=== PATIENT | female | born 1940 ===

== ENCOUNTER 2020-10-05 09:13 | Outpatient (REF) | payer MEDICARE, MEDICAID, SELFPAY ==
[2020-10-05 10:27] LABS: MANUAL DIFF FLAG NO
[2020-10-05 10:45] LABS: Basophils Absolute Auto 0.1 X10*3/uL (0.0-0.2); Basophils Percent Auto 0.8 % (0-2); Eosinophils Absolute Auto 0.5 X10*3/uL (0.0-0.4); Eosinophils Percent Auto 5.2 % (0-4); Hematocrit 41.9 % (37-47); Hemoglobin 13.2 g/dl (12.0-16.0); Imm Gran Abs Auto 0.01 X10*3/uL (0.00-0.03); Imm Gran Pct Auto 0.1 % (0.0-0.4); Lymphocytes Absolute Auto 2.8 X10*3/uL (1.2-4.9); Lymphocytes Percent Auto 31.9 % (20-40); Mean Corpuscular HGB Conc 31.5 g/dl (31.0-35.0); Mean Corpuscular Hemoglobin 28.6 pg (27.0-33.0); Mean Corpuscular Volume 90.9 fL (80-98); Mean Platelet Volume 12.2 fL (9.4-12.3); Monocytes Absolute Auto 0.5 X10*3/uL (0.1-1.2); Monocytes Percent Auto 5.4 % (2-11); Neutrophils Absolute Auto 4.9 X10*3/uL (2.0-8.3); Neutrophils Percent Auto 56.6 % (45-73); Platelet Count 229 X10*3/uL (160-400); Red Blood Count 4.61 X10*6/uL (4.20-5.50); White Blood Count 8.7 X10*3/uL (4.8-10.8)
[2020-10-05 11:00] LABS: Glucose Urine UA NEG (NEG); Leukocyte Esterase Urine 1+ (NEG); Nitrite Urine POS (NEG); PH 5.5 (5.0-8.0); Specific Gravity - Urine >= 1.030 (1.005-1.025); Urine Blood NEG (NEG); Urine Ketones NEG (NEG); Urine Protein NEG (NEG-TRACE)
[2020-10-05 11:05] LABS: Appearance Urine HAZY; Color Urine YELLOW
[2020-10-05 11:13] LABS: Alanine Aminotransferase 15 U/L (0-31); Albumin Level 4.2 g/dL (3.5-5.0); Alkaline Phosphatase 107 U/L (39-117); Anion Gap 12 (12-20); Aspartate Amino Transferase 13 U/L (5-31); Bilirubin Total 0.4 mg/dL (0.0-1.0); Blood Urea Nitrogen 14 mg/dL (9-16); Calcium 10.6 mg/dL (8.4-10.2); Carbon Dioxide 29 mmol/L (22-29); Chloride 105 mmol/L (96-108); Cholesterol 127 mg/dL; Estimated Glomerular Filt Rate > 60; Glucose Fasting 134 mg/dL (60-99); HDL Cholesterol 47 mg/dL; LDL Cholesterol Calculated 65 mg/dl; Potassium 4.4 mmol/l (3.3-5.1); Sodium 142 mmol/L (135-145); Triglycerides 77 mg/dL
[2020-10-05 11:32] LABS: Bacteria Urine 3+ /LPF; RBC Urine 0-2 /HPF (0); Squamous Epithelial Cell Urine 3+ /LPF; TSH reflex Free T4 0.54 mIU/mL (0.32-4.0)
[2020-10-06 08:17] LABS: Estimated Average Glucose 197 mg/dL; Hemoglobin A1c % 8.5 %
== END 2020-10-05 09:14 | disposition home or self-care (01) ==
LOC: HO.LAB 09:13
PROVIDERS: PCP Internal Medicine; Visit Provider Internal Medicine
DX: E11.9 Type 2 diabetes mellitus without complications (principal); I10 Essential (primary) hypertension; K21.9 Gastro-esophageal reflux disease without esophagitis; E78.00 Pure hypercholesterolemia, unspecified; E66.9 Obesity, unspecified
CPT/HCPCS: 36415; 80053; 80061; 81001; 81003; 82043; 83036; 84443; 85025; 87086; 87088; 87186

== ENCOUNTER 2021-01-28 17:40 | Emergency (ER) | payer OTHER, SELFPAY ==
--- NOTE | ~2021-01-28 | XR_ITS ---
EXAMINATION: XR HIP, RIGHT CLINICAL INFORMATION: Right hip pain COMPARISON: None TECHNIQUE: Single view pelvis with 2 additional views of the right hip. FINDINGS: Bones and soft tissues are unremarkable. No fracture. Alignment is anatomic. Hip joint space is maintained. Some minimal degenerative changes seen with some marginal acetabular osteophytes bilaterally. XR/XR hip RT w PEL1V IMPRESSION: Minimal degenerative change without fracture.
[2021-01-28 18:16] VITALS: BP 161/70; PULSE 91; RESP 18; TEMP 37.2; O2SAT 97; BMI 30.9
[2021-01-28] MEDS: Ketorolac Tromethamine 30 MG/ML VIAL IM (18:51)
[2021-01-28] MEDS: Acetaminophen 325 MG TABLET 975 MG PO (18:51)
--- NOTE | 2021-01-28 18:53 | ED.LOWEXIN ---
HPI - Extremity Injury (Lower) General Chief Complaint: Extremity Injury, Lower Stated Complaint: R SIDED LOWER HIP PAIN Time Seen by Provider: 01/28/21 18:37 Source: patient and family Mode of arrival: ambulatory Limitations: no limitations History of Present Illness HPI Narrative: 80 y/o female with history of osteoporosis, osteoarthritis, GERD, obesity, DM, HTN and HLD who presents with right sided hip pain that she woke up with this morning. She was at a family function yesterday and was going up and down stairs which she usually does not do. She states this morning she woke up with 10/10 right hip pain and difficulty walking. She denies trauma or injury. No numbness, tingling or weakness. She states she also has pain in her low back with movement. No incontinence, fever or chills. MD complaint: hip injury Onset (ago): day(s) Injury: Right: hip Type of Injury: unknown Place: home Severity: moderate Relieving factors: immobilization and rest Exacerbating factors: weight bearing, movement and palpation Context: walking Associated symptoms: able to partially bear weight Other symptoms: none Related Data Home Medications Medication Instructions Recorded Confirmed atorvastatin 20 mg tablet 20 mg PO DAILY 10/04/20 01/03/21 dulaglutide 0.75 mg/0.5 mL 0.75 mg SUBCUT QWEEK ml 10/04/20 01/03/21 subcutaneous pen injector insulin aspart U-100 100 unit/mL See Rx Instructions SUBCUT .COMPLEX 10/04/20 01/03/21 (3 mL) subcutaneous pen insulin degludec 100 unit/mL (3 30 unit SUBCUT BEDTIME 10/04/20 01/03/21 mL) subcutaneous pen metformin 500 mg tablet 500 mg PO BID 10/04/20 01/03/21 Previous Rx's Medication Instructions Recorded blood sugar diagnostic #100 ea 01/03/21 enalapril maleate 10 mg tablet 10 mg PO DAILY 90 Days #90 tab 01/03/21 lancets 28 gauge #100 ea 01/03/21 omeprazole 40 mg capsule,delayed 40 mg PO DAILY 90 Days #90 cap 01/03/21 release oxybutynin chloride 5 mg 5 mg PO DAILY 90 Days #90 tab 01/03/21 tablet,extended release 24 hr polyethylene glycol 3350 17 17 g PO DAILY 30 Days #510 g 01/03/21 gram/dose oral powder cyclobenzaprine 5 mg PO TID PRN #8 tab 01/28/21 ibuprofen 600 mg PO Q8H PRN #10 tab 01/28/21 Allergies Allergy/AdvReac Type Severity Reaction Status Date / Time No Known Allergies Allergy Verified 01/03/21 10:14 Review of Systems Review of Systems: Constitutional: No Fever, No Chills Cardiovascular: No Chest Pain, No SOB, No Edema Respiratory: No Cough, No Sputum Gastrointestinal: No Nausea, No Vomiting, No Diarrhea, No abdominal Pain Genitourinary: No Dysuria, No Urinary Frequency, No Hematuria Musculoskeletal: + joint pain, + Myalgias Skin: No Skin Lesions, No rash Neuro: No Weakness, No Numbness, No Dizziness, No Headache Psych: No Anxiety/Panic, No Depression Heme/Lymph: No Bruising, No Lymphadenopathy Endocrine: No Polyuria, No Polydipsia PMFSH Past Medical History Medical History Benign essential hypertension Constipation Diabetes mellitus GERD without esophagitis Obesity (BMI 30-39.9) Overactive bladder Pure hypercholesterolemia Surgical History Status post excision of lipoma Family History Family History Mother Diabetes mellitus Hypertension Social History Social History Alcohol intake: never Smoking Status: Former smoker Use of substances other than those prescribed or required for medical reasons: No Advance Directives: No Advance Directives Information Provided: No Physical Exam Vital Signs: Vital Signs: Last Vital Signs Temp 98.9 F 01/28/21 18:16 Pulse 87 01/28/21 20:56 Resp 16 01/28/21 20:56 BP 138/65 01/28/21 20:56 Pulse Ox 96 01/28/21 20:56 Body Mass Index 30.9 Appearance: Alert. Oriented X3. No acute distress. Eyes: Pupils equal, round and reactive to light. ENT: Pharynx normal. Neck: Normal inspection. Neck supple. CVS: Normal heart rate and rhythm. Pulses normal. Respiratory: No respiratory distress. Breath sounds normal. Abdomen: Obese, soft, with tenderness to lower abdomen, no rebound or guarding, hyperactive +BS x4 Skin: Skin warm and dry. Normal skin color. Normal skin turgor. No rashes. Extremities: No lower extremity edema. Neuro: Oriented X 3. No motor deficit. No sensory deficit. Course Course Course Narrative: 80 y/o female presenting with right hip pain after walking up and down stairs yesterday. No trauma. Pain worse with movement and palpation. She is still able to ambulate with her walker but with discomfort. Will get XR for further evaluation. Reevaluation(s) Reevaluation #1: XR showing degenerative changes without fracture. Pain is better after Toradol, Tylenol and low dose oxycodone. She is stable for discharge home. She lives with her daughter who provides all of her care. She is not interested in PT/CM evaluation. Critical Care Time Critical Care Time Critical Care Time: No Discharge Plan Discharge Clinical Impression: Strain of hip Qualifiers: Encounter type: initial encounter Laterality: right Qualified Code(s): S76.011A - Strain of muscle, fascia and tendon of right hip, initial encounter Patient Disposition: Home, Self-Care Instructions: Hip Pain (ED) Additional Instructions: Your x-rays today showed minimal degenerative changes with no fractures. Your pain is likely due to strain of the muscle and tendons given all of the stairs you did yesterday. Use ice several times per day for 20 minutes at a time for the next 48 hours and then change to heat. Take medications as prescribed to help with pain and discomfort. Follow up with your Primary Care Doctor this week. If your pain worsens, if you develop new numbness, tingling, weakness, loss of function or incontinence call 911 or come back to the ER right away for evaluation. Prescriptions: New cyclobenzaprine 5 mg tablet 5 mg PO TID PRN (Reason: muscle spasm) Qty: 8 RF: 0 ibuprofen 600 mg tablet 600 mg PO Q8H PRN (Reason: pain) Qty: 10 RF: 0 No Action metformin 500 mg tablet 500 mg PO BID RF: 0 atorvastatin 20 mg tablet 20 mg PO DAILY RF: 0 Tresiba FlexTouch U-100 100 unit/mL (3 mL) insulin pen 30 unit subcut BEDTIME RF: 0 dulaglutide 0.75 mg/0.5 mL pen injector 0.75 mg subcut QWEEK RF: 0 insulin aspart U-100 100 unit/mL (3 mL) insulin pen See Rx Instructions subcut .COMPLEX RF: 0 enalapril maleate 10 mg tablet 10 mg PO DAILY 90 Days Qty: 90 RF: 1 omeprazole 40 mg capsule,delayed release(DR/EC) 40 mg PO DAILY 90 Days Qty: 90 RF: 1 oxybutynin chloride 5 mg tablet extended release 24hr 5 mg PO DAILY 90 Days Qty: 90 RF: 1 (DME) FreeStyle Lite Strips Strip See Rx Instructions .ROUTE .MEDSUPPLY Qty: 100 RF: 12 (DME) lancets [FreeStyle Lancets] 28 gauge misc See Rx Instructions .ROUTE .MEDSUPPLY Qty: 100 RF: 12 polyethylene glycol 3350 [GlycoLax] 17 gram/dose powder 17 g PO DAILY 30 Days Qty: 510 RF: 5
[2021-01-28] MEDS: oxyCODONE HCl Immed Release 5 MG TABLET 2.5 MG PO (20:17)
[2021-01-28 20:56] VITALS: BP 138/65; PULSE 87; RESP 16; O2SAT 96
== END 2021-01-28 21:22 | disposition home or self-care (01) ==
PROVIDERS: Emergency Provider Internal Medicine; PCP Internal Medicine
DX: S76.011A Strain of muscle, fascia and tendon of right hip, initial encounter (principal); M25.551 Pain in right hip; Z79.899 Other long term (current) drug therapy; E11.9 Type 2 diabetes mellitus without complications; I10 Essential (primary) hypertension; Z87.891 Personal history of nicotine dependence; X58.XXXA Exposure to other specified factors, initial encounter; Y93.9 Activity, unspecified; Y92.9 Unspecified place or not applicable; Y99.9 Unspecified external cause status
CPT/HCPCS: 73502; 96372; 99284; J1885

== ENCOUNTER 2021-04-01 08:12 | Outpatient (REF) | payer OTHER, SELFPAY ==
[2021-04-01 08:59] LABS: MANUAL DIFF FLAG NO
[2021-04-01 09:11] LABS: Basophils Absolute Auto 0.1 X10*3/uL (0.0-0.2); Basophils Percent Auto 0.6 % (0-2); Eosinophils Absolute Auto 0.2 X10*3/uL (0.0-0.4); Hematocrit 43.3 % (37-47); Imm Gran Abs Auto 0.03 X10*3/uL (0.00-0.03); Imm Gran Pct Auto 0.3 % (0.0-0.4); Lymphocytes Absolute Auto 2.9 X10*3/uL (1.2-4.9); Lymphocytes Percent Auto 27.3 % (20-40); Mean Corpuscular HGB Conc 32.3 g/dl (31.0-35.0); Mean Corpuscular Hemoglobin 29.7 pg (27.0-33.0); Mean Corpuscular Volume 91.7 fL (80-98); Mean Platelet Volume 11.3 fL (9.4-12.3); Monocytes Absolute Auto 0.6 X10*3/uL (0.1-1.2); Monocytes Percent Auto 5.2 % (2-11); Neutrophils Absolute Auto 6.9 X10*3/uL (2.0-8.3); Neutrophils Percent Auto 64.6 % (45-73); Platelet Count 243 X10*3/uL (160-400); Red Blood Count 4.72 X10*6/uL (4.20-5.50); Red Cell Distribution Width 14.6 % (11.0-16.0); White Blood Count 10.6 X10*3/uL (4.8-10.8)
[2021-04-01 09:29] LABS: Estimated Average Glucose 180 mg/dL; Hemoglobin A1c % 7.9 %
[2021-04-01 09:40] LABS: Glucose Urine UA NEG (NEG); Leukocyte Esterase Urine 2+ (NEG); Nitrite Urine NEG (NEG); Specific Gravity - Urine 1.025 (1.005-1.025); UACC Culture Trigger YES; Urine Blood NEG (NEG); Urine Ketones NEG (NEG); Urine Protein NEG (NEG-TRACE)
[2021-04-01 09:41] LABS: Alanine Aminotransferase 11 U/L (0-31); Albumin Level 4.2 g/dL (3.5-5.0); Alkaline Phosphatase 100 U/L (39-117); Anion Gap 14 (12-20); Aspartate Amino Transferase 12 U/L (5-31); Bilirubin Total 0.4 mg/dL (0.0-1.0); Blood Urea Nitrogen 12 mg/dL (9-16); Calcium 12.4 mg/dL (8.4-10.2); Carbon Dioxide 27 mmol/L (22-29); Chloride 105 mmol/L (96-108); Cholesterol 135 mg/dL; Estimated Glomerular Filt Rate > 60; Glucose Fasting 132 mg/dL (60-99); HDL Cholesterol 46 mg/dL; LDL Cholesterol Calculated 64 mg/dl; Potassium 4.9 mmol/L (3.3-5.1); Sodium 141 mmol/L (135-145); Total Protein 7.3 g/dL (6.5-8.0); Triglycerides 125 mg/dL
[2021-04-01 09:42] LABS: Appearance Urine HAZY; Color Urine YELLOW
[2021-04-01 09:48] LABS: TSH reflex Free T4 0.71 uIU/mL (0.32-4.0)
[2021-04-01 09:50] LABS: Bacteria Urine 4+ /LPF; RBC Urine 0 /HPF (0); Squamous Epithelial Cell Urine 2+ /LPF; WBC Urine 30-49 /HPF (0-4)
[2021-04-01 10:18] LABS: Creatinine Urine 122.09 mg/dL; Microalbum/Creatinine Ratio Ur 29.4 ug/mg cr
== END 2021-04-01 08:13 | disposition home or self-care (01) ==
LOC: HO.LAB 08:12
PROVIDERS: PCP Internal Medicine; Visit Provider Internal Medicine
DX: E11.9 Type 2 diabetes mellitus without complications (principal); I10 Essential (primary) hypertension; K21.9 Gastro-esophageal reflux disease without esophagitis; E78.00 Pure hypercholesterolemia, unspecified; E66.9 Obesity, unspecified; N32.81 Overactive bladder; Z79.4 Long term (current) use of insulin
CPT/HCPCS: 36415; 80053; 80061; 81001; 81003; 82043; 83036; 84443; 85025; 87086; 87088; 87186

== ENCOUNTER 2021-06-05 09:25 | Outpatient (REF) | payer OTHER, SELFPAY ==
[2021-06-05 10:09] LABS: Appearance Urine HAZY; Color Urine YELLOW; Glucose Urine UA NEG (NEG); Leukocyte Esterase Urine 1+ (NEG); Nitrite Urine POS (NEG); PH 5.5 (5.0-8.0); Specific Gravity - Urine 1.025 (1.005-1.025); UACC Culture Trigger YES; Urine Blood NEG (NEG); Urine Ketones NEG (NEG); Urine Protein NEG (NEG-TRACE)
[2021-06-05 10:16] LABS: Bacteria Urine 4+ /LPF; RBC Urine 0 /HPF (0); Squamous Epithelial Cell Urine 1+ /LPF
[2021-06-05 10:40] LABS: Alanine Aminotransferase 12 U/L (0-31); Albumin Level 4.1 g/dL (3.5-5.0); Alkaline Phosphatase 91 U/L (39-117); Anion Gap 12 (12-20); Aspartate Amino Transferase 15 U/L (5-31); Bilirubin Total 0.4 mg/dL (0.0-1.0); Blood Urea Nitrogen 21 mg/dL (9-16); Carbon Dioxide 27 mmol/L (22-29); Chloride 106 mmol/L (96-108); Cholesterol 140 mg/dL; Estimated Glomerular Filt Rate > 60; Glucose Fasting 96 mg/dL (60-99); HDL Cholesterol 46 mg/dL; LDL Cholesterol Calculated 81 mg/dl; Sodium 140 mmol/L (135-145); Total Protein 6.9 g/dL (6.5-8.0); Triglycerides 69 mg/dL
== END 2021-06-05 09:26 | disposition home or self-care (01) ==
LOC: HO.LAB 09:25
PROVIDERS: PCP Internal Medicine; Visit Provider Internal Medicine
DX: E11.9 Type 2 diabetes mellitus without complications (principal); Z79.4 Long term (current) use of insulin; E78.5 Hyperlipidemia, unspecified
CPT/HCPCS: 36415; 80053; 80061; 81001; 82043; 87086; 87088; 87186

== ENCOUNTER 2021-06-12 11:03 | Outpatient (REF) | payer OTHER, SELFPAY ==
[2021-06-12 12:32] LABS: Alanine Aminotransferase 15 U/L (0-31); Albumin Level 4.1 g/dL (3.5-5.0); Alkaline Phosphatase 101 U/L (39-117); Anion Gap 13 (12-20); Aspartate Amino Transferase 15 U/L (5-31); Bilirubin Total 0.3 mg/dL (0.0-1.0); Blood Urea Nitrogen 16 mg/dL (9-16); Carbon Dioxide 28 mmol/L (22-29); Chloride 104 mmol/L (96-108); Estimated Glomerular Filt Rate > 60; Glucose Random 142 mg/dL (60-115); Potassium 4.8 mmol/L (3.3-5.1); Sodium 140 mmol/L (135-145); Total Protein 6.8 g/dL (6.5-8.0)
[2021-06-12 12:48] LABS: Vitamin D 25-OH Total 37.3 ng/mL (>30)
[2021-06-12 12:50] LABS: Appearance Urine HAZY; Color Urine YELLOW; Glucose Urine UA NEG (NEG); Leukocyte Esterase Urine 2+ (NEG); Nitrite Urine NEG (NEG); UACC Culture Trigger YES; Urine Blood NEG (NEG); Urine Ketones 5 MG/DL (NEG); Urine Protein NEG (NEG-TRACE)
[2021-06-12 12:54] LABS: Calcium 11.9 mg/dL (8.4-10.2)
[2021-06-12 13:06] LABS: Squamous Epithelial Cell Urine 1+ /LPF
[2021-06-12 13:07] LABS: Bacteria Urine 3+ /LPF
[2021-06-12 13:08] LABS: RBC Urine 0-2 /HPF (0); WBC Urine 50-75 /HPF (0-4)
[2021-06-14 09:46] LABS: Calcium, Ionized 6.5 mg/dL (4.8-5.6)
[2021-06-14 12:12] LABS: Calcium (PTHI) 11.7 mg/dL (8.6-10.4); PTHI 86 pg/mL (14-64)
[2021-06-14 18:12] LABS: IgA 272 mg/dL (70-320); IgG 1079 mg/dL (600-1540); IgM 72 mg/dL (50-300)
[2021-06-18 09:46] LABS: Prot Elec - Albumin 3.9 g/dL (3.8-4.8); Prot Elec - Alpha1 0.3 g/dL (0.2-0.3); Prot Elec - Beta 1 0.5 g/dL (0.4-0.6); Prot Elec - Beta 2 0.4 g/dL (0.2-0.5); Prot Elec - Total Protein 7.1 g/dL (6.1-8.1)
== END 2021-06-12 11:04 | disposition home or self-care (01) ==
LOC: HO.LAB 11:03
PROVIDERS: PCP Internal Medicine; Visit Provider Internal Medicine
DX: E83.52 Hypercalcemia (principal)
CPT/HCPCS: 36415; 80053; 81001; 82306; 82330; 82784; 83970; 84165; 87086; 87088; 87186

== ENCOUNTER 2021-07-03 09:18 | Outpatient (REF) | payer MEDICARE, MEDICAID, SELFPAY ==
[2021-07-03 10:32] LABS: Blood Urea Nitrogen 14 mg/dL (9-16); Estimated Glomerular Filt Rate > 60
== END 2021-07-03 09:19 | disposition home or self-care (01) ==
LOC: HO.LAB 09:18
PROVIDERS: PCP Internal Medicine; Visit Provider Ophthalmology
DX: G62.9 Polyneuropathy, unspecified (principal); H53.40 Unspecified visual field defects
CPT/HCPCS: 36415; 82565; 84520

== ENCOUNTER 2021-07-24 10:16 | Outpatient (REF) | payer MEDICARE, MEDICAID, SELFPAY ==
[2021-07-24 10:33] LABS: MANUAL DIFF FLAG NO
[2021-07-24 10:50] LABS: Basophils Absolute Auto 0.1 X10*3/uL (0.0-0.2); Basophils Percent Auto 0.8 % (0-2); Eosinophils Absolute Auto 0.4 X10*3/uL (0.0-0.4); Eosinophils Percent Auto 4.1 % (0-4); Hematocrit 40.9 % (37.0-47.0); Imm Gran Abs Auto 0.04 X10*3/uL (0.00-0.03); Imm Gran Pct Auto 0.4 % (0.0-0.4); Lymphocytes Percent Auto 33.2 % (20-40); Mean Corpuscular HGB Conc 31.8 g/dl (31.0-35.0); Mean Corpuscular Hemoglobin 29.3 pg (27.0-33.0); Mean Corpuscular Volume 92.1 fL (80.0-98.0); Mean Platelet Volume 11.2 fL (9.4-12.3); Monocytes Absolute Auto 0.5 X10*3/uL (0.1-1.2); Neutrophils Absolute Auto 5.07 x10*3/uL (2.0-8.3); Neutrophils Percent Auto 56.5 % (45-73); Platelet Count 263 X10*3/uL (160-400); Red Blood Count 4.44 X10*6/uL (4.20-5.50); Red Cell Distribution Width 14.6 % (11.0-16.0)
[2021-07-24 11:17] LABS: Alanine Aminotransferase 14 U/L (0-31); Albumin Level 4.1 g/dL (3.5-5.0); Alkaline Phosphatase 98 U/L (39-117); Anion Gap 12 (12-20); Aspartate Amino Transferase 14 U/L (5-31); Bilirubin Total 0.2 mg/dL (0.0-1.0); Blood Urea Nitrogen 19 mg/dL (9-16); Carbon Dioxide 28 mmol/L (22-29); Chloride 106 mmol/L (96-108); Estimated Glomerular Filt Rate > 60; Glucose Random 132 mg/dL (60-115); Sodium 141 mmol/L (135-145)
[2021-07-24 11:28] LABS: Calcium 11.8 mg/dL (8.4-10.2)
[2021-07-24 11:36] LABS: Vitamin D 25-OH Total 32.8 ng/mL (>30)
== END 2021-07-24 10:17 | disposition home or self-care (01) ==
LOC: HO.LAB 10:16
PROVIDERS: PCP Internal Medicine; Visit Provider Internal Medicine
DX: E83.52 Hypercalcemia (principal); I10 Essential (primary) hypertension; E55.9 Vitamin D deficiency, unspecified
CPT/HCPCS: 36415; 80053; 82306; 82330; 85025

== ENCOUNTER 2021-11-21 08:38 | Outpatient (REF) | payer OTHER, SELFPAY ==
[2021-11-21 09:20] LABS: MANUAL DIFF FLAG NO
[2021-11-21 09:27] LABS: Basophils Percent Auto 0.3 % (0-2); Eosinophils Absolute Auto 0.2 X10*3/uL (0.0-0.4); Eosinophils Percent Auto 1.6 % (0-4); Hematocrit 39.8 % (37.0-47.0); Hemoglobin 12.7 g/dl (12.0-16.0); Imm Gran Abs Auto 0.04 X10*3/uL (0.00-0.03); Imm Gran Pct Auto 0.3 % (0.0-0.4); Lymphocytes Absolute Auto 3.2 X10*3/uL (1.2-4.9); Lymphocytes Percent Auto 27.9 % (20-40); Mean Corpuscular HGB Conc 31.9 g/dl (31.0-35.0); Mean Corpuscular Hemoglobin 29.1 pg (27.0-33.0); Mean Corpuscular Volume 91.3 fL (80.0-98.0); Mean Platelet Volume 10.9 fL (9.4-12.3); Monocytes Absolute Auto 0.5 X10*3/uL (0.1-1.2); Monocytes Percent Auto 4.3 % (2-11); Neutrophils Absolute Auto 7.6 x10*3/uL (2.0-8.3); Neutrophils Percent Auto 65.6 % (45-73); Platelet Count 244 X10*3/uL (160-400); Red Blood Count 4.36 X10*6/uL (4.20-5.50); Red Cell Distribution Width 14.6 % (11.0-16.0); White Blood Count 11.6 X10*3/uL (4.8-10.8)
[2021-11-21 09:37] LABS: Estimated Average Glucose 160 mg/dL; Hemoglobin A1c % 7.2 %
[2021-11-21 10:27] LABS: Alanine Aminotransferase 12 U/L (0-31); Albumin Level 3.9 g/dL (3.5-5.0); Alkaline Phosphatase 102 U/L (39-117); Anion Gap 10 (12-20); Aspartate Amino Transferase 13 U/L (5-31); Bilirubin Total 0.4 mg/dL (0.0-1.0); Blood Urea Nitrogen 20 mg/dL (9-16); Calcium 11.2 mg/dL (8.4-10.2); Carbon Dioxide 28 mmol/L (22-29); Chloride 110 mmol/L (96-108); Cholesterol 126 mg/dL; Estimated Glomerular Filt Rate > 60; Glucose Fasting 97 mg/dL (60-99); HDL Cholesterol 52 mg/dL; LDL Cholesterol Calculated 62 mg/dl; Potassium 4.7 mmol/L (3.3-5.1); Sodium 143 mmol/L (135-145); Total Protein 6.7 g/dL (6.5-8.0); Triglycerides 63 mg/dL
[2021-11-21 10:45] LABS: TSH reflex Free T4 0.57 uIU/mL (0.32-4.0); Vitamin D 25-OH Total 33.6 ng/mL (>30)
[2021-11-21 10:55] LABS: Appearance Urine HAZY; Color Urine YELLOW; Glucose Urine UA NEG (NEG); Leukocyte Esterase Urine TRACE (NEG); Nitrite Urine POS (NEG); PH 5.5 (5.0-8.0); Specific Gravity - Urine >= 1.030 (1.005-1.025); UACC Culture Trigger YES; Urine Blood NEG (NEG); Urine Ketones NEG (NEG); Urine Protein NEG (NEG-TRACE)
[2021-11-21 11:29] LABS: Bacteria Urine 4+ /LPF; RBC Urine 0 /HPF (0); Squamous Epithelial Cell Urine 3+ /LPF
[2021-11-21 11:30] LABS: Creatinine Urine 116.27 mg/dL
== END 2021-11-21 08:39 | disposition home or self-care (01) ==
LOC: HO.LAB 08:38
PROVIDERS: PCP Internal Medicine; Visit Provider Internal Medicine
DX: I10 Essential (primary) hypertension (principal); E78.00 Pure hypercholesterolemia, unspecified; E11.9 Type 2 diabetes mellitus without complications; E55.9 Vitamin D deficiency, unspecified
CPT/HCPCS: 36415; 80053; 80061; 81001; 82043; 82306; 83036; 84443; 85025; 87086; 87088; 87186

== ENCOUNTER → 2021-12-30 08:13 | Outpatient (BNVA) | payer OTHER, SELFPAY | PROVIDERS: PCP Internal Medicine; Visit Provider Internal Medicine Endocrinology, Diabetes & Metabolism | DX: E83.52 Hypercalcemia (principal); E21.3 Hyperparathyroidism, unspecified | CPT/HCPCS: 99202 ==

== ENCOUNTER 2022-02-24 08:38 | Outpatient (REF) | payer OTHER, SELFPAY ==
[2022-02-24 09:30] LABS: Albumin Level 3.9 g/dL (3.5-5.0); Calcium 10.5 mg/dL (8.4-10.2)
[2022-02-24 09:58] LABS: Vitamin D 25-OH Total 27.2 ng/mL (>30)
[2022-02-25 14:47] LABS: Calcium (PTHI) 10.7 mg/dL (8.6-10.4); PTHI 149 pg/mL (16-77)
== END 2022-02-24 08:39 | disposition home or self-care (01) ==
LOC: HO.LAB 08:38
PROVIDERS: PCP Internal Medicine; Visit Provider Internal Medicine Endocrinology, Diabetes & Metabolism
DX: E21.3 Hyperparathyroidism, unspecified (principal)
CPT/HCPCS: 36415; 82040; 82306; 82310; 83970

== ENCOUNTER 2022-02-26 13:26 | Outpatient (REF) | payer OTHER, SELFPAY ==
[2022-02-26 14:12] LABS: Total Volume 24 Hour Urine 825 mL
[2022-02-26 14:43] LABS: Creatinine, 24Hr Urine 0.8 G/Day (1.0-2.0); Creatinine, mg/dL 90.99
[2022-02-28 17:26] LABS: Calcium, 24 Hr Urine 87 mg/24 h; Calcium/Creatinine Ratio 120 mg/g creat (30-275); Creatinine 24Hr Urine 0.73 g/24 h (0.50-2.15)
== END 2022-02-26 13:27 | disposition home or self-care (01) ==
LOC: HO.LNP 13:26
PROVIDERS: Visit Provider Internal Medicine Endocrinology, Diabetes & Metabolism
DX: E21.3 Hyperparathyroidism, unspecified (principal)
CPT/HCPCS: 82340; 82570

== ENCOUNTER 2022-03-11 08:14 | Outpatient (REF) | payer OTHER, SELFPAY ==
[2022-03-11 08:50] LABS: MANUAL DIFF FLAG NO
[2022-03-11 09:12] LABS: Basophils Percent Auto 0.5 % (0-2); Eosinophils Absolute Auto 0.2 X10*3/uL (0.0-0.4); Eosinophils Percent Auto 2.5 % (0-4); Hematocrit 40.6 % (37.0-47.0); Hemoglobin 12.9 g/dl (12.0-16.0); Imm Gran Abs Auto 0.02 X10*3/uL (0.00-0.03); Imm Gran Pct Auto 0.2 % (0.0-0.4); Lymphocytes Absolute Auto 2.9 X10*3/uL (1.2-4.9); Lymphocytes Percent Auto 34.3 % (20-40); Mean Corpuscular HGB Conc 31.8 g/dl (31.0-35.0); Mean Corpuscular Hemoglobin 29.3 pg (27.0-33.0); Mean Corpuscular Volume 92.3 fL (80.0-98.0); Mean Platelet Volume 11.7 fL (9.4-12.3); Monocytes Absolute Auto 0.4 X10*3/uL (0.1-1.2); Monocytes Percent Auto 5.1 % (2-11); Neutrophils Absolute Auto 4.8 x10*3/uL (2.0-8.3); Neutrophils Percent Auto 57.4 % (45-73); Platelet Count 267 X10*3/uL (160-400); Red Cell Distribution Width 14.3 % (11.0-16.0); White Blood Count 8.3 X10*3/uL (4.8-10.8)
[2022-03-11 09:24] LABS: Estimated Average Glucose 183 mg/dL
[2022-03-11 09:33] LABS: Appearance Urine CLEAR; Color Urine YELLOW; Glucose Urine UA NEG (NEG); Leukocyte Esterase Urine 1+ (NEG); Nitrite Urine POS (NEG); PH 5.5 (5.0-8.0); Specific Gravity - Urine >= 1.030 (1.005-1.025); UACC Culture Trigger YES; Urine Blood NEG (NEG); Urine Ketones NEG (NEG); Urine Protein NEG (NEG-TRACE)
[2022-03-11 09:48] LABS: Bacteria Urine 4+ /LPF; RBC Urine 0 /HPF (0); Squamous Epithelial Cell Urine 2+ /LPF
[2022-03-11 10:33] LABS: Creatinine Urine 127.91 mg/dL; Microalbum/Creatinine Ratio Ur 16.4 ug/mg cr
[2022-03-11 10:46] LABS: Alanine Aminotransferase 13 U/L (0-31); Albumin Level 4.1 g/dL (3.5-5.0); Alkaline Phosphatase 114 U/L (39-117); Anion Gap 12 (12-20); Aspartate Amino Transferase 13 U/L (5-31); Bilirubin Total 0.4 mg/dL (0.0-1.0); Blood Urea Nitrogen 19 mg/dL (9-16); Carbon Dioxide 26 mmol/L (22-29); Chloride 106 mmol/L (96-108); Cholesterol 135 mg/dL; Estimated Glomerular Filt Rate > 60; Glucose Fasting 106 mg/dL (60-99); HDL Cholesterol 45 mg/dL; LDL Cholesterol Calculated 68 mg/dl; Potassium 5.3 mmol/L (3.3-5.1); Sodium 139 mmol/L (135-145); Total Protein 7.1 g/dL (6.5-8.0); Triglycerides 110 mg/dL
[2022-03-11 10:57] LABS: Calcium 11.3 mg/dL (8.4-10.2)
[2022-03-11 11:18] LABS: Vitamin D 25-OH Total 27.8 ng/mL (>30)
== END 2022-03-11 08:15 | disposition home or self-care (01) ==
LOC: HO.LAB 08:14
PROVIDERS: PCP Internal Medicine; Visit Provider Internal Medicine
DX: I10 Essential (primary) hypertension (principal); E78.00 Pure hypercholesterolemia, unspecified; E11.9 Type 2 diabetes mellitus without complications; E55.9 Vitamin D deficiency, unspecified
CPT/HCPCS: 36415; 80053; 80061; 81001; 82043; 82306; 83036; 84443; 85025; 87086; 87088; 87186

== ENCOUNTER 2022-06-30 07:59 | Outpatient (REF) | payer OTHER, SELFPAY ==
[2022-06-30 08:13] LABS: MANUAL DIFF FLAG NO
[2022-06-30 08:35] LABS: Basophils Absolute Auto 0.1 X10*3/uL (0.0-0.2); Basophils Percent Auto 0.8 % (0-2); Eosinophils Absolute Auto 0.2 X10*3/uL (0.0-0.4); Eosinophils Percent Auto 3.1 % (0-4); Hematocrit 41.3 % (37.0-47.0); Hemoglobin 13.1 g/dl (12.0-16.0); Imm Gran Abs Auto 0.02 X10*3/uL (0.00-0.03); Imm Gran Pct Auto 0.3 % (0.0-0.4); Lymphocytes Absolute Auto 2.8 X10*3/uL (1.2-4.9); Lymphocytes Percent Auto 35.8 % (20-40); Mean Corpuscular HGB Conc 31.7 g/dl (31.0-35.0); Mean Corpuscular Hemoglobin 29.1 pg (27.0-33.0); Mean Corpuscular Volume 91.8 fL (80.0-98.0); Mean Platelet Volume 11.2 fL (9.4-12.3); Monocytes Absolute Auto 0.5 X10*3/uL (0.1-1.2); Monocytes Percent Auto 6.5 % (2-11); Neutrophils Absolute Auto 4.1 x10*3/uL (2.0-8.3); Neutrophils Percent Auto 53.5 % (45-73); Platelet Count 259 X10*3/uL (160-400); Red Cell Distribution Width 14.5 % (11.0-16.0); White Blood Count 7.7 X10*3/uL (4.8-10.8)
[2022-06-30 08:41] LABS: Estimated Average Glucose 163 mg/dL; Hemoglobin A1c % 7.3 %
[2022-06-30 08:57] LABS: Appearance Urine Cloudy; Color Urine Yellow; Glucose Urine UA Negative (Negative); Leukocyte Esterase Urine Moderate (2+) (Negative); Nitrite Urine Positive (Negative); PH 5.5 (5.0-9.0); UMIC TRIGGER UACC YES; Urine Blood Negative (Negative); Urine Ketones Trace mg/dL (Negative); Urine Protein Trace mg/dL (Neg-Trace)
[2022-06-30 09:02] LABS: Bacteria Urine 4+ (None Seen); Hyaline Casts Urine 0-2 /LPF (0-2); RBC Urine 0-2 /HPF (0-2); UACC Culture Trigger YES; WBC Urine >50 /HPF (0-5)
[2022-06-30 09:06] LABS: Creatinine Urine 148.55 mg/dL; Microalbum/Creatinine Ratio Ur 15.4 ug/mg cr
[2022-06-30 09:19] LABS: Alanine Aminotransferase 12 U/L (0-31); Albumin Level 4.2 g/dL (3.5-5.0); Alkaline Phosphatase 108 U/L (39-117); Anion Gap 13 (12-20); Aspartate Amino Transferase 15 U/L (5-31); Bilirubin Total 0.3 mg/dL (0.0-1.0); Blood Urea Nitrogen 13 mg/dL (9-16); Calcium 11.3 mg/dL (8.4-10.2); Carbon Dioxide 27 mmol/L (22-29); Chloride 105 mmol/L (96-108); Cholesterol 119 mg/dL; Estimated Glomerular Filt Rate > 60; Glucose Fasting 146 mg/dL (60-99); HDL Cholesterol 44 mg/dL; LDL Cholesterol Calculated 58 mg/dl; Sodium 140 mmol/L (135-145); Total Protein 7.3 g/dL (6.5-8.0); Triglycerides 88 mg/dL
[2022-06-30 09:33] LABS: TSH reflex Free T4 1.09 uIU/mL (0.32-4.0); Vitamin D 25-OH Total 26.1 ng/mL (>30)
== END 2022-06-30 08:00 | disposition home or self-care (01) ==
LOC: HO.LAB 07:59
PROVIDERS: Absent Provider Nurse Practitioner Family; PCP Internal Medicine; Visit Provider Internal Medicine
DX: E11.9 Type 2 diabetes mellitus without complications (principal); E78.00 Pure hypercholesterolemia, unspecified; I10 Essential (primary) hypertension; E55.9 Vitamin D deficiency, unspecified; E87.5 Hyperkalemia
CPT/HCPCS: 36415; 80048; 80053; 80061; 81001; 81003; 82043; 82306; 83036; 84443; 85025; 87086

== ENCOUNTER 2022-10-06 09:37 | Outpatient (REF) | payer OTHER, SELFPAY ==
[2022-10-06 09:53] LABS: MANUAL DIFF FLAG NO
[2022-10-06 10:41] LABS: Basophils Percent Auto 0.5 % (0-2); Eosinophils Absolute Auto 0.3 X10*3/uL (0.0-0.4); Eosinophils Percent Auto 3.1 % (0-4); Hematocrit 39.7 % (37.0-47.0); Hemoglobin 12.6 g/dl (12.0-16.0); Imm Gran Abs Auto 0.02 X10*3/uL (0.00-0.03); Imm Gran Pct Auto 0.2 % (0.0-0.4); Lymphocytes Absolute Auto 2.8 X10*3/uL (1.2-4.9); Lymphocytes Percent Auto 33.5 % (20-40); Mean Corpuscular HGB Conc 31.7 g/dl (31.0-35.0); Mean Corpuscular Hemoglobin 29.2 pg (27.0-33.0); Mean Corpuscular Volume 92.1 fL (80.0-98.0); Mean Platelet Volume 11.4 fL (9.4-12.3); Monocytes Absolute Auto 0.5 X10*3/uL (0.1-1.2); Monocytes Percent Auto 5.9 % (2-11); Neutrophils Absolute Auto 4.7 x10*3/uL (2.0-8.3); Neutrophils Percent Auto 56.8 % (45-73); Platelet Count 244 X10*3/uL (160-400); Red Blood Count 4.31 X10*6/uL (4.20-5.50); Red Cell Distribution Width 13.9 % (11.0-16.0); White Blood Count 8.3 X10*3/uL (4.8-10.8)
[2022-10-06 10:43] LABS: Appearance Urine Cloudy; Color Urine Yellow; Glucose Urine UA Negative (Negative); Leukocyte Esterase Urine Moderate (2+) (Negative); Nitrite Urine Positive (Negative); UMIC TRIGGER UACC YES; Urine Blood Negative (Negative); Urine Ketones Negative (Negative); Urine Protein Negative (Neg-Trace)
[2022-10-06 10:47] LABS: Bacteria Urine 4+ (None Seen); Hyaline Casts Urine 0-2 /LPF (0-2); RBC Urine 0-2 /HPF (0-2); UACC Culture Trigger YES; WBC Urine >50 /HPF (0-5)
[2022-10-06 10:48] LABS: Estimated Average Glucose 200 mg/dL; Hemoglobin A1c % 8.6 %
[2022-10-06 11:20] LABS: Alanine Aminotransferase 8 U/L (0-31); Albumin Level 3.9 g/dL (3.5-5.0); Alkaline Phosphatase 90 U/L (39-117); Anion Gap 12 (12-20); Aspartate Amino Transferase 12 U/L (5-31); Bilirubin Total 0.3 mg/dL (0.0-1.0); Blood Urea Nitrogen 14 mg/dL (9-16); Carbon Dioxide 28 mmol/L (22-29); Chloride 106 mmol/L (96-108); Cholesterol 134 mg/dL; Estimated Glomerular Filt Rate > 60; Glucose Fasting 105 mg/dL (60-99); HDL Cholesterol 48 mg/dL; LDL Cholesterol Calculated 71 mg/dl; Potassium 4.4 mmol/L (3.3-5.1); Sodium 142 mmol/L (135-145); Total Protein 6.7 g/dL (6.5-8.0); Triglycerides 78 mg/dL
[2022-10-06 11:26] LABS: TSH reflex Free T4 0.95 uIU/mL (0.32-4.0); Vitamin D 25-OH Total 31.1 ng/mL (>30)
[2022-10-06 11:51] LABS: Creatinine Urine 90.61 mg/dL; Microalbum/Creatinine Ratio Ur 14.3 ug/mg cr
== END 2022-10-06 09:38 | disposition home or self-care (01) ==
LOC: HO.LAB 09:37
PROVIDERS: PCP Internal Medicine; Visit Provider Internal Medicine
DX: E55.9 Vitamin D deficiency, unspecified (principal); R30.0 Dysuria; E78.00 Pure hypercholesterolemia, unspecified; E11.9 Type 2 diabetes mellitus without complications; I10 Essential (primary) hypertension
CPT/HCPCS: 36415; 80053; 80061; 81001; 82043; 82306; 83036; 84443; 85025; 87086

== ENCOUNTER 2022-10-14 10:33 | Outpatient (REF) | payer OTHER, SELFPAY ==
--- NOTE | ~2022-10-14 | MM_ITS ---
EXAMINATION: BONE DENSITOMETRY CLINICAL INDICATION: Asymptomatic menopausal state. COMPARISON: None (current study represents initial baseline exam). TECHNIQUE: Using a [employer] DXA System (software version: 13.1) manufactured by [employer], dual-energy x-ray absorptiometry was performed of the lumbar spine and left hip. The images are of good technical quality. Summary results are attached. FINDINGS: AP SPINE L1-L4: BMD 0.916 g/cm2, Z-score -0.6, T-score -2.2, osteopenia. LEFT FEMUR, NECK: BMD 0.746 g/cm2, Z-score 0.0, T-score -2.1, osteopenia. LEFT FEMUR, TOTAL: BMD 0.920 g/cm2, Z-score 1.3, T-score -0.7, normal. IDENTIFIED RISK FACTORS: Osteoporosis. Secondary osteoporosis (early menopause). HISTORY OF FRACTURE: Elbow. MEDICATIONS: Calcium supplement or multivitamin. Vitamin D. MM/XR DEXA axial skeleton IMPRESSION: 1. DIAGNOSIS: Osteopenia based on the lowest T-score value of -2.2 in the lumbar spine applying World Health Organization criteria. 2. 10-YEAR FRACTURE RISK PREDICTION, FRAX: Major osteoporotic fracture (clinical spine, forearm, hip or shoulder) 14.1%. Hip fracture 3.9%. 3. Treatment Recommendations: NOF guidelines recommend consideration for treatment in postmenopausal women and men age 50 and older presenting with the following: -A hip or vertebral (clinical or morphometric) fracture. -T-score less than or equal to -2.5 at the femoral neck or spine after appropriate evaluation to exclude secondary causes. -Low bone mass at the hip or spine and a 10-year fracture probability by FRAX of greater than or equal to 3% for hip fracture or greater than or equal to 20% for major osteoporotic fracture based on the [place] adapted WHO algorithm. 4. Other Recommendations: All treatment decisions require clinical judgment and consideration of individual patient factors, including patient preferences, comorbidities, previous drug use, risk factors not captured in the FRAX model (e.g. frailty, falls, vitamin D deficiency, increased bone turnover, interval significant decline in bone density) and possible under or overestimation of fracture risk by FRAX. Additional medical evaluation for secondary cause of low bone mineral density may be appropriate. FUTURE SCAN RECOMMENDATION: People with diagnosed cases of osteoporosis or at high risk for fracture should have regular bone mineral density tests. For patients eligible for Medicare, routine testing is allowed once every 2 years. The testing frequency can be increased to one year for patients who have rapidly progressing disease, those who are receiving or discontinuing medical therapy to restore bone mass, or have additional risk factors.
== END 2022-10-14 10:34 | disposition home or self-care (01) ==
LOC: HO.MAMMO 10:33
PROVIDERS: PCP Internal Medicine; Visit Provider Nurse Practitioner Family
DX: Z13.820 Encounter for screening for osteoporosis (principal); Z78.0 Asymptomatic menopausal state
CPT/HCPCS: 77080

== ENCOUNTER → 2022-12-03 16:00 | Outpatient (BNVA) | payer OTHER, SELFPAY | PROVIDERS: PCP Internal Medicine; Visit Provider Internal Medicine Endocrinology, Diabetes & Metabolism | DX: E83.52 Hypercalcemia (principal) | CPT/HCPCS: 99212 ==

== ENCOUNTER 2023-01-07 08:13 | Outpatient (REF) | payer OTHER, SELFPAY ==
[2023-01-07 08:32] LABS: MANUAL DIFF FLAG NO
[2023-01-07 08:56] LABS: Appearance Urine Cloudy; Color Urine Yellow; Glucose Urine UA Negative (Negative); Leukocyte Esterase Urine Large (3+) (Negative); Nitrite Urine Positive (Negative); Specific Gravity - Urine 1.015 (1.005-1.025); UMIC TRIGGER UACC YES; Urine Blood Negative (Negative); Urine Ketones Negative (Negative); Urine Protein Negative (Neg-Trace)
[2023-01-07 08:59] LABS: Bacteria Urine 4+ (None Seen); Hyaline Casts Urine 0-2 /LPF (0-2); RBC Urine 0-2 /HPF (0-2); UACC Culture Trigger YES; WBC Urine >50 /HPF (0-5)
[2023-01-07 09:17] LABS: Basophils Absolute Auto 0.1 X10*3/uL (0.0-0.2); Basophils Percent Auto 0.7 % (0-2); Eosinophils Absolute Auto 0.2 X10*3/uL (0.0-0.4); Eosinophils Percent Auto 2.7 % (0-4); Hematocrit 40.8 % (37.0-47.0); Hemoglobin 12.9 g/dl (12.0-16.0); Imm Gran Abs Auto 0.03 X10*3/uL (0.00-0.03); Imm Gran Pct Auto 0.3 % (0.0-0.4); Lymphocytes Absolute Auto 3.1 X10*3/uL (1.2-4.9); Lymphocytes Percent Auto 34.6 % (20-40); Mean Corpuscular HGB Conc 31.6 g/dl (31.0-35.0); Mean Corpuscular Hemoglobin 28.9 pg (27.0-33.0); Mean Corpuscular Volume 91.3 fL (80.0-98.0); Mean Platelet Volume 11.2 fL (9.4-12.3); Monocytes Absolute Auto 0.5 X10*3/uL (0.1-1.2); Monocytes Percent Auto 5.3 % (2-11); Neutrophils Percent Auto 56.4 % (45-73); Platelet Count 263 X10*3/uL (160-400); Red Blood Count 4.47 X10*6/uL (4.20-5.50); Red Cell Distribution Width 14.6 % (11.0-16.0); White Blood Count 8.8 X10*3/uL (4.8-10.8)
[2023-01-07 09:22] LABS: Microalbum/Creatinine Ratio Ur 10.6 ug/mg cr
[2023-01-07 09:28] LABS: Estimated Average Glucose 186 mg/dL; Hemoglobin A1c % 8.1 %
[2023-01-07 09:55] LABS: Alanine Aminotransferase 13 U/L (0-31); Alkaline Phosphatase 88 U/L (39-117); Anion Gap 12 (12-20); Aspartate Amino Transferase 16 U/L (5-31); Bilirubin Total 0.4 mg/dL (0.0-1.0); Blood Urea Nitrogen 13 mg/dL (9-16); Carbon Dioxide 30 mmol/L (22-29); Chloride 105 mmol/L (96-108); Cholesterol 152 mg/dL; Estimated Glomerular Filt Rate > 60; Glucose Fasting 96 mg/dL (60-99); HDL Cholesterol 39 mg/dL; LDL Cholesterol Calculated 77 mg/dl; Potassium 4.7 mmol/L (3.3-5.1); Sodium 142 mmol/L (135-145); Total Protein 6.8 g/dL (6.5-8.0); Triglycerides 183 mg/dL
[2023-01-07 10:11] LABS: TSH reflex Free T4 1.47 uIU/mL (0.32-4.0); Vitamin D 25-OH Total 48.2 ng/mL (>30)
== END 2023-01-07 08:14 | disposition home or self-care (01) ==
LOC: HO.LAB 08:13
PROVIDERS: PCP Internal Medicine; Visit Provider Internal Medicine
DX: E11.9 Type 2 diabetes mellitus without complications (principal); I10 Essential (primary) hypertension; E55.9 Vitamin D deficiency, unspecified; E78.00 Pure hypercholesterolemia, unspecified; R82.90 Unspecified abnormal findings in urine
CPT/HCPCS: 36415; 80053; 80061; 81001; 82043; 82306; 83036; 84443; 85025; 87086; 87088; 87186

== ENCOUNTER 2023-05-04 08:18 | Outpatient (REF) | payer OTHER, SELFPAY ==
[2023-05-04 08:32] LABS: MANUAL DIFF FLAG NO
[2023-05-04 08:54] LABS: Basophils Absolute Auto 0.1 X10*3/uL (0.0-0.2); Basophils Percent Auto 0.8 % (0-2); Eosinophils Absolute Auto 0.3 X10*3/uL (0.0-0.4); Eosinophils Percent Auto 2.9 % (0-4); Hematocrit 38.9 % (37.0-47.0); Hemoglobin 12.3 g/dl (12.0-16.0); Imm Gran Abs Auto 0.03 X10*3/uL (0.00-0.03); Imm Gran Pct Auto 0.3 % (0.0-0.4); Lymphocytes Absolute Auto 3.1 X10*3/uL (1.2-4.9); Mean Corpuscular HGB Conc 31.6 g/dl (31.0-35.0); Mean Corpuscular Hemoglobin 28.7 pg (27.0-33.0); Mean Corpuscular Volume 90.9 fL (80.0-98.0); Mean Platelet Volume 11.5 fL (9.4-12.3); Monocytes Absolute Auto 0.5 X10*3/uL (0.1-1.2); Monocytes Percent Auto 5.8 % (2-11); Neutrophils Absolute Auto 5.1 x10*3/uL (2.0-8.3); Neutrophils Percent Auto 56.2 % (45-73); Platelet Count 258 X10*3/uL (160-400); Red Blood Count 4.28 X10*6/uL (4.20-5.50); Red Cell Distribution Width 15.7 % (11.0-16.0)
[2023-05-04 09:24] LABS: Appearance Urine Cloudy; Color Urine Yellow; Glucose Urine UA Negative (Negative); Leukocyte Esterase Urine Moderate (2+) (Negative); Nitrite Urine Positive (Negative); PH 5.5 (5.0-9.0); UMIC TRIGGER UACC YES; Urine Blood Negative (Negative); Urine Ketones Trace mg/dL (Negative); Urine Protein Trace mg/dL (Neg-Trace)
[2023-05-04 09:31] LABS: Bacteria Urine 4+ (None Seen); Hyaline Casts Urine 0-2 /LPF (0-2); RBC Urine 0-2 /HPF (0-2); Squamous Epithelial Cell Urine >20 /HPF (0-2); UACC Culture Trigger YES; WBC Urine >50 /HPF (0-5)
[2023-05-04 09:32] LABS: Erythrocyte Sedimentation Rate 25 MM/HR (0-20)
[2023-05-04 10:04] LABS: Creatinine Urine 174.09 mg/dL; Microalbum/Creatinine Ratio Ur 13.2 ug/mg cr
[2023-05-04 10:31] LABS: Alanine Aminotransferase 10 U/L (0-31); Albumin Level 3.7 g/dL (3.5-5.0); Alkaline Phosphatase 81 U/L (39-117); Anion Gap 12 (12-20); Aspartate Amino Transferase 13 U/L (5-31); Bilirubin Total 0.3 mg/dL (0.0-1.0); Blood Urea Nitrogen 15 mg/dL (9-16); C Reactive Protein < 0.10 mg/dL (< or = 0.50); Calcium 8.9 mg/dL (8.4-10.2); Carbon Dioxide 26 mmol/L (22-29); Chloride 109 mmol/L (96-108); Cholesterol 109 mg/dL; Estimated Glomerular Filt Rate > 60; Glucose Fasting 120 mg/dL (60-99); HDL Cholesterol 39 mg/dL; LDL Cholesterol Calculated 54 mg/dl; Potassium 4.3 mmol/L (3.3-5.1); Sodium 143 mmol/L (135-145); TSH reflex Free T4 1.01 uIU/mL (0.32-4.0); Total Protein 7.1 g/dL (6.5-8.0); Triglycerides 81 mg/dL; Vitamin D 25-OH Total 46.2 ng/mL (>30)
[2023-05-04 11:31] LABS: Estimated Average Glucose 217 mg/dL; Hemoglobin A1c % 9.2 %
== END 2023-05-04 08:19 | disposition home or self-care (01) ==
LOC: HO.LAB 08:18
PROVIDERS: PCP Internal Medicine; Visit Provider Internal Medicine
DX: M25.50 Pain in unspecified joint (principal); E78.00 Pure hypercholesterolemia, unspecified; I10 Essential (primary) hypertension; E11.9 Type 2 diabetes mellitus without complications; E55.9 Vitamin D deficiency, unspecified; M79.7 Fibromyalgia; R30.0 Dysuria
CPT/HCPCS: 36415; 80053; 80061; 81001; 82043; 82306; 83036; 84443; 85025; 85652; 86140; 87086; 87088; 87186

== ENCOUNTER 2023-05-11 09:49 | Outpatient (AMB) | payer OTHER, SELFPAY ==
[2023-05-11 09:51] VITALS: BP 120/84; PULSE 74; O2SAT 98; BMI 36.1
--- NOTE | 2023-05-11 09:51 | A.OFFPC_ITS ---
Vital Signs 05/11/23 09:51 Height 4 ft 11 in Weight 179 lb BMI 36.1 BP 120/84 Blood Pressure Location Lt brachial Position Sitting Pulse 74 Pulse Source Pulse Oximeter Pulse Oximetry (%) 98 Oxygen Delivery Method Room Air Intake Visit Reasons: DM, hypercalcemia, osteoporosis Intake Note: Patient states she needs a higher dosage of her trulicity. Direct Support Staff Member Required: No Accompanied by: Self / Same As Patient Allergies No Known Allergies Allergy (Verified 05/11/23 10:40) Medication List - Last Reconciled 05/11/23 by Rodrigo Damon MD atorvastatin 20 mg PO DAILY 90 days blood sugar diagnostic (FreeStyle Lite Strips) As directed once a day cyclobenzaprine 5 mg PO TID PRN 10 days diclofenac sodium 1% 2 grams topical QID PRN dorzolamide-timolol 22.3-6.8 mg/mL 1 drp ophthalmic (eye) BID dulaglutide 0.75 mg (0.5 mL) subcut QWEEK 30 days enalapril maleate 10 mg PO DAILY 90 days gabapentin 100 mg PO BID 30 days ibuprofen 600 mg PO Q8H PRN insulin aspart U-100 12 to 15 units 3 times a day with meals per sliding scale subcut; insulin degludec 30 units (0.3 mL) subcut BEDTIME 30 days insulin syr/ndl U100 half geoffrey (BD Insulin Syringe Ultra-Fine (half unit)) Use 4 times daily ketorolac 0.5% 0 drps ophthalmic (eye) lancets (FreeStyle Lancets) As directed once a day latanoprost 0.005% 0 drps ophthalmic (eye) metformin 500 mg PO BID netarsudil 0.02% (Rhopressa) 1 drp ophthalmic-Right BEDTIME omeprazole 40 mg PO DAILY 90 days oxybutynin chloride ER 5 mg PO DAILY 90 days pen needle, diabetic (BD Ultra-Fine Mini Pen Needle) As directed with tresiba polyethylene glycol 3350 (GlycoLax) 17 grams PO DAILY 30 days Tobacco use date assessed: 05/11/23 Fall risk assessment: No Falls in past year Last assessed Fall Risk: 05/11/23 Dental Screening Dental Screen Date: 05/11/23 Did you have a dental visit in the last 12 months?: No Did you have a dental problem in the last 6 months where you did not have access to dental care?: No Was dental information given to patient?: No HPI DM, hypercalcemia, osteoporosis HPI Details Patient comes in today for her follow up visit States that she has been gaining weight lately and feels that her Trulicity is not working for her - would like to have this changed Adds that she has also been getting increasingly constipated lately Used to take Miralax but she stopped taking this a while back as she relates that she often throws up after drinking her Miralax States that she feels okay otherwise She denies any headaches or dizziness Denies any chest pains, no SOB No nausea/vomiting, no abdominal pain although she feels bloated often lately due to her constipation States that her daughter helps her with her meds but admits that she has not been taking her Humalog with her meals lately - states that she is not aware that she had to continue on this Had her follow up labs done last week - to discuss her results [facility] Medical History Benign essential hypertension Constipation Diabetes mellitus GERD without esophagitis Hyperparathyroidism Obesity (BMI 30-39.9) Overactive bladder Pure hypercholesterolemia Surgical History Hx of section Status post excision of lipoma Status post parathyroidectomy (~09/02/22) Family History Mother Diabetes mellitus Hypertension Father Hypertension Cancer Other Substance abuse Social History Housing: Apartment Alcohol intake: never Patient Tobacco Use Status: Never used Tobacco e-Cigarette/Vaping Use: Never Used Second Hand Smoke Exposure: No service: No Current occupational status: disabled Cognitive needs: Yes (walker) Hearing needs: No Vision needs: Yes Questionnaire PHQ-9 Over the last 2 weeks, how often have you been bothered by any of the following problems? 1. Little interest or pleasure in doing things: not at all 2. Feeling down, depressed, or hopeless: not at all 3. Trouble falling or staying asleep, or sleeping too much: not at all 4. Feeling tired or having little energy: not at all 5. Poor appetite or overeating: not at all 6. Feeling bad about yourself - or that you are a failure or have let yourself or your family down: not at all 7. Trouble concentrating on things, such as reading the newspaper or watching television: not at all 8. Moving or speaking so slowly that other people could have noticed. Or the opposite - being so fidgety or restless that you have been moving around a lot more than usual: not at all 9. Thoughts that you would be better off or of hurting yourself in some way: not at all Total score: 0 Depression Screening Interpretation: Negative 06110 - PHQ-9 Billing: Yes Source: Developed by Drs. Gerber Vee, Rocio Ross, Roland Henriquez and colleagues, with an educational víctor from [employer]. Thrive Questionnaire Date Thrive assessed: 05/11/23 I am a: Patient What is your living situation today?: I have a steady place to live Within the past 12 months, did the food you bought not last and you didn't have the money to get more?: Never true Within the past 12 months, did you worry whether your food would run out before you got money to buy more?: Never true Do you have trouble paying for medicines?: No Do you have trouble getting transportation to medical appointments?: No Do you have trouble paying your heating and electricity bill?: No Do you have trouble taking care of your child, family member or friend?: No Do you have trouble with day-to-day activities such as bathing, preparing meals, shopping, managing finances, etc.?: No Are you currently unemployed and looking for a job?: No Are you interested in more education?: No Please select the resources that you would like help with: None Currently or been in a relationship where the following occur: no concerns reported AUDIT C Alcohol Use Questionnaire (AUDIT-C) 1. How often do you have a drink containing alcohol?: Never 3. How often do you have six or more drinks on one occasion?: Never Total Score: 0 Score Reviewed/Action Taken: Yes MOLLY-7 AMB Questionnaire MOLLY-7 Date MOLLY - 7 assessed: 05/11/23 Feeling nervous, anxious, or on edge: 0 = Not at all Not being able to stop or control worryin = Not at all Worrying too much about different things: 0 = Not at all Trouble relaxin = Not at all Being so restless that it is hard to sit still: 0 = Not at all Becoming easily annoyed or irritable: 0 = Not at all Feeling afraid as if something awful might happen: 0 = Not at all Total MOLLY-7 score (0-4 normal; 5-9 mild; 10-14 moderate; 15-21 severe): 0 Source: Developed by Drs. Gerber Vee, Rocio Ross, Roland Henriquez and colleagues, with an educational víctor from [employer]. Review of Systems Const Reports difficulty sleeping (at times), Reports fatigue, Denies fever(s), Denies headache(s) and Reports weight gain ENT Denies dysphagia, Denies dizziness, Denies otalgia, Denies headache(s), Denies neck pain, Denies odynophagia and Denies sore throat Card Denies chest pain, Denies palpitations and Denies dyspnea Resp Denies chest congestion, Denies cough and Denies dyspnea GI Denies abdominal pain, Reports constipation (on and off), Denies dysphagia, Denies heartburn, Denies diarrhea, Denies nausea, Denies odynophagia and Denies vomiting Denies difficulty voiding, Denies nocturia and Denies dysuria Musc Reports back pain (over the lower back), Reports arthralgias (involving multiple joints - include hips and knees) and Denies neck pain Neuro Denies dizziness and Denies headache(s) Endo Reports fatigue and Denies palpitations Physical exam (Primary Care) Vital Signs: Last Vital Signs Pulse 74 05/11/23 09:51 BP 120/84 05/11/23 09:51 Pulse Ox 98 05/11/23 09:51 Oxygen Delivery Method Room Air 05/11/23 09:51 BMI result Body Mass Index 36.1 Tobacco/Smoking Status: Tobacco use Status Tobacco use date assessed 05/11/23 05/11/23 09:59 Patient Tobacco Use Status Never used Tobacco 05/11/23 09:59 e-Cigarette/Vaping Use Never Used 05/11/23 09:59 PHQ-9: PHQ-9 Score PHQ-9: Total score 0 05/11/23 10:00 Depression Screening Interpretation: Negative Thrive Assessment: Date of Thrive Assessment Date Thrive assessed 05/11/23 05/11/23 09:59 Currently or been in a relationship where the following occur: no concerns reported Const General: no acute distress and alert HENMT Ears: TM's normal bilaterally and EAC's normal Throat: Yes posterior oropharynx normal and Yes tonsils normal (no TP congestion noted) Neck Neck: Yes no lymphadenopathy and Yes supple Thyroid: Thyroid normal and other ((+) healed scar over the lower part of the anterior neck) Resp Auscultation: clear to auscultation bilaterally, no rales and no wheezes Cardio Rate: regular rate Rhythm: regular rhythm Heart sounds: no murmurs GI Palpation (GI): Soft to palpation, nontender and no guarding Auscultation: normal bowel sounds Back/Spine/Pelvis Thoracic/Lumbar Spine: lumbar spinal tenderness Skin Rashes: no rashes Extrem General: Yes no clubbing, cyanosis or edema Right lower extremity: hip/thigh Details: tenderness Location: of the hip and knee Details: tenderness; no swelling Left lower extremity: hip/thigh Details: tenderness Location: of the hip and knee Details: tenderness; no swelling Results Reviewed Results Reviewed: Laboratory Tests 05/04/23 05/04/23 05/04/23 08:31 08:31 08:31 WBC 9.0 Hgb 12.3 Hct 38.9 Plt Count 258 ESR 25 H Sodium 143 Potassium 4.3 Creatinine 0.85 Estimated GFR > 60 Fasting Glucose 120 H Hemoglobin A1c % Calcium 8.9 AST 13 ALT 10 Triglycerides 81 Cholesterol 109 LDL Cholesterol, Calc 54 HDL Cholesterol 39 25-OH Vitamin D Total 46.2 TSH 1.01 Ur Specific [place] Urine Protein Urine Glucose (UA) Urine Blood Urine Microalbumin Microalb/Creat Ratio 05/04/23 05/04/23 05/04/23 08:31 Unknown Unknown WBC Hgb Hct Plt Count ESR Sodium Potassium Creatinine Estimated GFR Fasting Glucose Hemoglobin A1c % 9.2 Calcium AST ALT Triglycerides Cholesterol LDL Cholesterol, Calc HDL Cholesterol 25-OH Vitamin D Total TSH Ur Specific [place] 1.020 Urine Protein Trace Urine Glucose (UA) Negative Urine Blood Negative Urine Microalbumin 23.0 Microalb/Creat Ratio 13.2 Assessment and Plan Assessment & Plan (1) Diabetes mellitus: Code(s): E11.9 - Type 2 diabetes mellitus without complications Qualifiers: Diabetes mellitus type: type 2 Diabetes mellitus mcc insulin use: with laborer marine terminal use Diabetes mellitus complication status: without complication Qualified Code(s): E11.9 - Type 2 diabetes mellitus without complications; Z79.4 - shelter (current) use of insulin Plan: HgbA1c is at 9.2% on her labs done last week (was at 8.1% a few months ago) - goal is at least 7.5% or less Reinforced diabetic diet Was seeing an finishing trimmer based in [place] (patient does not remember the doctor's name) previously but states that she has not been seen in a while and has no follow up appointments scheduled with them She was taken off her Lantus by endocrinology and started instead on Tresiba 30 units Q HS a few months ago Continue Metformin 500 mg BID; is also on Trulicity 0.75 mg once a week but she does not feel that this is helping - feels that she has gained a lot of weight while on Trulicity lately She was also supposed to be on Humalog 12 to 15 units 3 times a day with meals per sliding scale but apparently stopped taking this a while back - states that she was not aware that she should still be on this Will have office staff try to reach out to her daughter who is helping her with her meds to try helping patient get back on her mealtime dosing of Humalog TID Was supposed to see endocrinology here at [facility] for her diabetes but it appears that she was only seen earlier this year for her hypercalcemia Will try to refer her back to [facility] Endocrinology for further evaluation and management of her diabetes as well as it appears that she is NO LONGER seeing her previous finishing trimmer in [place] Will try switching her Trulicity in the meantime over to Ozempic to see if this will work better for her (2) Pure hypercholesterolemia: Code(s): E78.00 - Pure hypercholesterolemia, unspecified Plan: Results of her labs done last week reviewed and discussed with patient Reinforced low cholesterol diet Continue Atorvastatin 20 mg QD Will recheck her labs and fasting lipids in 3 months for follow up (3) Benign essential hypertension: Code(s): I10 - Essential (primary) hypertension Plan: Reinforced low sodium diet - goal is systolic BP of at least 140 to 150 mm or less Continue Enalapril 10 mg QD (4) Hyperparathyroidism: Code(s): E21.3 - Hyperparathyroidism, unspecified Plan: S/P parathyroidectomy with Dr. Ferrera in [place] on 09/02/2022 Was reportedly advised by Dr. Ferrera that he will just need to see her for follow up on an as needed basis and for her to just continue seeing her finishing trimmer and PCP regularly from now on for routine surveillance/follow up (5) GERD without esophagitis: Code(s): K21.9 - Gastro-esophageal reflux disease without esophagitis Plan: Dietary restrictions reinforced Continue Omeprazole 40 mg QD (6) Constipation: Code(s): K59.00 - Constipation, unspecified Qualifiers: Constipation type: unspecified constipation type Qualified Code(s): K59.00 - Constipation, unspecified Plan: Reinforced increased oral fluids and dietary fiber Was taking Miralax 17 gm QD in the past but states that she stopped taking it a couple of months ago - feels that she was throwing up every time she takes Miralax States that her constipation has been increasing since and would like to try some other Rx for this Will start her for now on Senna 8.6 mg Q HS (7) Overactive bladder: Code(s): N32.81 - Overactive bladder Plan: Continue Oxybutynin ER 5 mg QD States that she is still getting up to go to the bathroom about 4 times a night Will consider increasing Rx dosage if her symptoms persist/progress (8) Arthralgia: Code(s): M25.50 - Pain in unspecified joint Qualifiers: Joint pain location: unspecified Qualified Code(s): M25.50 - Pain in unspecified joint Plan: Continue topical Diclofenac 1% gel to apply to affected/painful areas QID PRN and Gabapentin 100 mg BID (9) Obesity (BMI 30-39.9): Code(s): E66.9 - Obesity, unspecified Plan: Reinforced diet; exercise and weight loss may be unrealistic due to patient's age and physical limitations Plan Follow up in 3 months Orders: Orders Complete Blood Count Auto Diff 3 Months I10 - Essential (primary) hypertension Comprehensive [place]. Panel Fast 3 Months E78.00 - Pure hypercholesterolemia, unspecified Lipid Panel 3 Months E78.00 - Pure hypercholesterolemia, unspecified Hemoglobin A1c 3 Months E11.9 - Type 2 diabetes mellitus without complications Microalbumin, Random (w Creat) 3 Months E11.9 - Type 2 diabetes mellitus without complications TSH reflex Free T4 3 Months E78.00 - Pure hypercholesterolemia, unspecified UA CC w/rflx Micro + Cult 3 Months R30.0 - Dysuria Vitamin D 25-OH Total 3 Months E55.9 - Vitamin D deficiency, unspecified Referrals Endocrinology Referral E11.9 - Type 2 diabetes mellitus without complications Medications: New semaglutide (Ozempic) 0.25 mg (0.368 mL) subcut QWEEK 12 weeks 4.416 mL 1RF sennosides (senna) 8.6 mg PO BEDTIME 30 days PRN 30 tabs 3RF constipation Discontinued polyethylene glycol 3350 (GlycoLax) Take daily as instructed Discontinued Reason: Doctor's Order 17 grams PO DAILY 30 days 510 grams 5RF K59.00 - Constipation, unspecified dulaglutide Discontinued Reason: Doctor's Order 0.75 mg (0.5 mL) subcut QWEEK 30 days 2 mL 3RF Coding Level of Care Code Est Pt Level 4 (09418) Diagnoses Diabetes mellitus E11.9; Z79.4 Diabetes mellitus type: type 2 Diabetes mellitus mcc insulin use: with mcc use Diabetes mellitus complication status: without complication Pure hypercholesterolemia E78.00 Benign essential hypertension I10 Hyperparathyroidism E21.3 GERD without esophagitis K21.9 Constipation K59.00 Constipation type: unspecified constipation type Overactive bladder N32.81 Arthralgia M25.50 Joint pain location: unspecified Obesity (BMI 30-39.9) E66.9
== END 2023-05-11 11:24 | disposition home or self-care (01) ==
PROVIDERS: PCP Internal Medicine; Visit Provider Internal Medicine
DX: E11.9 Type 2 diabetes mellitus without complications (principal); Z79.4 Long term (current) use of insulin; I10 Essential (primary) hypertension; E21.3 Hyperparathyroidism, unspecified; K21.9 Gastro-esophageal reflux disease without esophagitis; E78.00 Pure hypercholesterolemia, unspecified; K59.00 Constipation, unspecified; N32.81 Overactive bladder; M25.50 Pain in unspecified joint; E66.9 Obesity, unspecified
CPT/HCPCS: 99214

== ENCOUNTER 2023-05-14 08:28 | Outpatient (AMB) | payer OTHER, SELFPAY ==
--- NOTE | 2023-05-14 08:37 | MHC.OFFVIS ---
Intake Vital Signs 05/14/23 08:39 Height 4 ft 11 in Weight 180 lb 12.465 oz BMI 36.5 BP 102/56 L Blood Pressure Location Lt brachial Position Sitting Pulse 79 Pulse Source Pulse Oximeter Intake Visit Reasons: DM/HgbA1c is at 9.2% Intake Note: Patient presents today to follow up on Type Diabetes Mellitus. Patient receives DME supplies through: Last Diabetic Eye exam: 03/2023 Last Podiatry Visit:None Random Glucose:227 mg/dl HgA1C: 9.2% 05/04/23 Certified Welding Inspector Required: No Accompanied by: Daughter Allergies No Known Allergies Allergy (Verified 05/14/23 08:43) Medication List - Last Reconciled 05/14/23 by Gerber Vu MD atorvastatin 20 mg PO DAILY 90 days blood sugar diagnostic (FreeStyle Lite Strips) As directed once a day cyclobenzaprine 5 mg PO TID PRN 10 days diclofenac sodium 1% 2 grams topical QID PRN dorzolamide-timolol 22.3-6.8 mg/mL 1 drp ophthalmic (eye) BID enalapril maleate 10 mg PO DAILY 90 days flash glucose scanning reader (NeomobileStyle Terri 2 Bassett) As directed flash glucose sensor (FreeStyle Terri 2 Sensor kit) As directed change every 14 days gabapentin 100 mg PO BID 30 days glucagon 3 mg/actuation (Baqsimi) 3 mg intranasal ONCE ibuprofen 600 mg PO Q8H PRN insulin aspart U-100 12 to 15 units 3 times a day with meals per sliding scale subcut; insulin degludec 30 units (0.3 mL) subcut BEDTIME 30 days insulin syr/ndl U100 half geoffrey (BD Insulin Syringe Ultra-Fine (half unit)) Use 4 times daily ketorolac 0.5% 0 drps ophthalmic (eye) lancets (FreeStyle Lancets) As directed once a day latanoprost 0.005% 0 drps ophthalmic (eye) metformin 500 mg PO BID netarsudil 0.02% (Rhopressa) 1 drp ophthalmic-Right BEDTIME omeprazole 40 mg PO DAILY 90 days oxybutynin chloride ER 5 mg PO DAILY 90 days pen needle, diabetic (BD Ultra-Fine Mini Pen Needle) As directed with tresiba semaglutide (Ozempic) 0.25 mg (0.368 mL) subcut QWEEK 12 weeks sennosides (senna) 8.6 mg PO BEDTIME PRN 30 days HPI HPI Comments History of Present Illness Details [] YO [M/F] who is seen in consultation for T2DM at the request of PCP. Initially diagnosed with T2DM in 20 yrs . Saw endo in [facility] long time ago Was initially started on treatment with in .Took Trulicity but changed to Ozempic because of wt gain metformin 500 mg BID Current regimen Ozempic 0.25 mg Qwkly Tresiba 30 units Novolog not taking . Unfortunately, patient did not bring glucometer or log book to visit Reports low sugars few time a wk . Treats lows with OJ . Checks sugar after to ensure it is rising. Checks 2 hr after corrects Family history of T2DM in mother and grandmother . Has eyes checked yearly, last eye exam last mo , has retinopathy and getting injections . Denies neuropathy, not , sees podiatry. Denies nephropathy, on CANDICE/ARB. Has HLD, on statin. ]. Denies CAD. Had diabetes education in [facility] Medical History Benign essential hypertension Constipation Diabetes mellitus GERD without esophagitis Hyperparathyroidism Obesity (BMI 30-39.9) Overactive bladder Pure hypercholesterolemia Surgical History Hx of section Status post excision of lipoma Status post parathyroidectomy (~09/02/22) Family History Mother Diabetes mellitus Hypertension Father Hypertension Cancer Other Substance abuse Social History Housing: Apartment Alcohol intake: never Patient Tobacco Use Status: Never used Tobacco e-Cigarette/Vaping Use: Never Used Second Hand Smoke Exposure: No service: No Current occupational status: disabled Cognitive needs: Yes (walker) Hearing needs: No Vision needs: Yes Physical Exam Absence of Cushingoid features. Absence of acromegalic features. Neck exam reveals nl size thyroid about 15 gms. No thyroid nodules palpable. No carotid bruits present. Lungs CTA. Heart S1 S2, Reg R/R. No M/R/ G. Skin exam reveals absence of vitiligo or acanthosis nigricans. Abdominal exam reveals Soft NT/ND with NA BS. No organomegaly present. Neck Other: . Extrem Other: Visual exam of foot performed. No ulcerations or open lesions. No onchomycosis, no callouses.Pulses 2 + distally Sensation intact to monofilament exam. Vibratory sensation sensed is intact with 128 Hz tuning fork Assessment & Plan Assessment & Plan (1) Diabetes mellitus: Code(s): E11.9 - Type 2 diabetes mellitus without complications Qualifiers: Diabetes mellitus complication status: without complication Diabetes mellitus detention insulin use: with superintendent marine oil terminal use Diabetes mellitus type: type 2 Qualified Code(s): E11.9 - Type 2 diabetes mellitus without complications; Z79.4 - watermaster (current) use of insulin Plan: This 82-year-old female with history of type 2 diabetes being treated metformin, Ozempic and basal-bolus insulin with poor glycemic control and no known microvascular or macrovascular complication. Plan is to have the patient check her point cares pre and post meals and bring the glucometer with her to follow-up visit. Will talk to her about prescribing a Sensor and will prescribe Terri 2. . Did not make any changes to regimen to we have more information. Will sent to clinical unit educator and parent coach. Explained to patient the relationship poor glycemic control to development and progression of complications. Also prescribed glucagon rescue Baqsimi Orders: Referrals Diabetes Education Referral E11.9 - Type 2 diabetes mellitus without complications Nutrition/Dietitian Referral E11.9 - Type 2 diabetes mellitus without complications Medications: New flash glucose sensor (FreeStyle Terri 2 Sensor kit) As directed change every 14 days 2 ea 5RF flash glucose scanning reader (FreeStyle Terri 2 Bassett) As directed 1 ea 0RF glucagon 3 mg/actuation (Baqsimi) 3 mg intranasal ONCE 2 ea 3RF Coding Level of Care Code Est Pt Level 4 (50017) Diagnoses Diabetes mellitus E11.9; Z79.4 Diabetes mellitus complication status: without complication Diabetes mellitus detention insulin use: with detention use Diabetes mellitus type: type 2
[2023-05-14 08:39] VITALS: BP 102/56; PULSE 79; BMI 36.5
[2023-05-14 08:53] LABS: Glucose, Whole Blood 227 mg/dL (60-115)
== END 2023-05-14 09:21 | disposition home or self-care (01) ==
PROVIDERS: PCP Internal Medicine; Visit Provider Internal Medicine Endocrinology, Diabetes & Metabolism
DX: E11.9 Type 2 diabetes mellitus without complications (principal); Z79.4 Long term (current) use of insulin
CPT/HCPCS: 99214

== ENCOUNTER → 2023-05-14 08:28 | Outpatient (BNVA) | payer OTHER, SELFPAY | PROVIDERS: PCP Internal Medicine; Visit Provider Internal Medicine Endocrinology, Diabetes & Metabolism | DX: E11.9 Type 2 diabetes mellitus without complications (principal); Z79.4 Long term (current) use of insulin | CPT/HCPCS: 82947; 99212 ==

== ENCOUNTER 2023-06-08 10:56 | Outpatient (AMB) | payer OTHER, SELFPAY ==
--- NOTE | 2023-06-08 11:38 | MHC.AMDMED ---
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 Required: No Accompanied by: Daughter Allergies No Known Allergies Allergy (Verified 05/14/23 08:43) HPI Comprehensive Diabetes Asmnt General Diabetes type type 2 Age of onset Over 20 years ago Most Recent Diabetes Results: Microalb/Creat Ratio 13.2 ug/mg cr 05/04/23 Cholesterol 109 mg/dL 05/04/23 HDL Cholesterol 39 mg/dL 05/04/23 Triglycerides 81 mg/dL 05/04/23 Creatinine 0.85 mg/dL (0.5-1.4) 05/04/23 Blood Urea Nitrogen 15 mg/dL (9-16) 05/04/23 Sodium 143 mmol/L (135-145) 05/04/23 Potassium 4.3 mmol/L (3.3-5.1) 05/04/23 Chloride 109 mmol/L (96-108) H 05/04/23 Carbon Dioxide 26 mmol/L (22-29) 05/04/23 Calcium 8.9 mg/dL (8.4-10.2) 05/04/23 AST 13 U/L (5-31) 05/04/23 ALT 10 U/L (0-31) 05/04/23 Total Protein 7.1 g/dL (6.5-8.0) 05/04/23 Albumin 3.7 g/dL (3.5-5.0) 05/04/23 [facility] Medical History Benign essential hypertension Constipation Diabetes mellitus GERD without esophagitis Hyperparathyroidism Obesity (BMI 30-39.9) Overactive bladder Pure hypercholesterolemia Surgical History Hx of section Status post excision of lipoma Status post parathyroidectomy (~09/02/22) Family History Mother Diabetes mellitus Hypertension Father Hypertension Cancer Other Substance abuse Social History Housing: Apartment Alcohol intake: never Patient Tobacco Use Status: Never used Tobacco e-Cigarette/Vaping Use: Never Used Second Hand Smoke Exposure: No service: No Current occupational status: disabled Cognitive needs: Yes (walker) Hearing needs: No Vision needs: Yes Assessment & Plan Assessment & Plan (1) Diabetes mellitus: Code(s): E11.9 - Type 2 diabetes mellitus without complications Qualifiers: Diabetes mellitus type: type 2 Diabetes mellitus prison insulin use: with prison use Diabetes mellitus complication status: without complication Qualified Code(s): E11.9 - Type 2 diabetes mellitus without complications; Z79.4 - long-term (current) use of insulin Plan: Learning objectives: The patient was provided with verbal and written education on the following topics as outlined below. The patient met all learning objectives and was able to verbalize understanding and provide teach back of education topics discussed . The patient was provided with the opportunity to ask questions and all questions were answered. Patient Assessment Assess patient education level/literacy/barriers Patient questions/concerns, patient at visit with her daughter. Last A1c drawn 05/04/2023 9.2%. Patient uses glucometer to test glucose reports taking glucose 1-2 times daily. Patient is waiting on delivery of Terri 2 sensors ordered on 05/14/2023. Patient denies hypoglycemia, patient has family history diabetes in her mother and her cousin. Patient is taking metformin 500 mg b.i.d., Ozempic 0.25 mg weekly, Tresiba 30 units daily, patient denies taking NovoLog at this time. What is Diabetes? Pathophysiology How the body produces and uses insulin Identify type of DM Risk factors Signs of Diabetes Brief overview of Diabetes Management Monitoring blood sugar Following a meal plan Regular exercise Maintaining a healthy weight Taking medication as needed Members of the care team (PCP, RN, MA, RD, CDE, direct casting operator) Blood glucose monitoring When/how often to test Target blood sugar ranges Patient did not bring meter to today's visit Introduction to Nutrition Importance of healthy diet in managing DM Diet is personalized to individual preference Review patient?s regular diet/food preferences Who prepares meals/does food shopping/ Dining out?/ Barriers? How diet effects glucose Eating 3 balanced meals a day with small, healthy snacks between meals Review food groups Carbohydrates: What is a carbohydrate/Which food/food groups are considered carbohydrates Effect of carbohydrates on blood glucose Portion sizes Reading food labels Basic carb counting (if applicable per nursing assessment) Plate method Meal planning Recommendations: Follow plate method, consistent carbs and read nutritional labels. Smart Goal: Patient will call to set up a CGM training appointment when she receives freestyle Terri 2 sensors Educational Materials: The patient was provided with the following written educational materials: Planning Healthy Meals Handout Patient Response to instructions: Comprehension of Instructions: Fair Readiness to make changes: Contemplation How confident they feel about making changes: Fairr Patient Instructions: Incluir actividad diaria regular. ADA recomienda 30 minutos de ejercicio 5 d?as a la semana. P?rdida de peso, hable con el PCP o el cardi?logo antes de comenzar un nuevo plan. Mida el nivel de az?car en la robb seg?n las indicaciones; Ayuno y comida m?s jered de 2hpp. Observe las tendencias en los resultados. Utilice los resultados y eval?e c?mo los alimentos, la actividad f?jacqui y los medicamentos afectan los resultados de az?car en la robb. Lleve el gluc?metro o CGM a la pr?xima visita. Conocer los medicamentos para la diabetes, ramos acci?n, los efectos secundarios, la eficacia, la toxicidad, la dosis prescrita, el momento y la frecuencia de administraci?n apropiados, el efecto de las dosis olvidadas y retrasadas y las instrucciones de almacenamiento, viaje y seguridad. T?cnicas de resoluci?n de problemas para el seguimiento de episodios de hipo/hiperglucemia y tratamientos. Reducir los comportamientos de reducci?n de riesgos, dejar de fumar, ex?menes regulares de ojos, pies y dentales. Coding Level of Care Code Est Pt Level 1 (94695) Diagnoses Type 2 diabetes mellitus without complication, with long-term current use of insulin E11.9; Z79.4 Diabetes mellitus type: type 2 Diabetes mellitus intermediate card tender insulin use: with intermediate card tender use Diabetes mellitus complication status: without complication
== END 2023-06-08 11:43 | disposition home or self-care (01) ==
PROVIDERS: PCP Internal Medicine; Visit Provider Registered Nurse Diabetes Educator
DX: E11.9 Type 2 diabetes mellitus without complications (principal); Z79.4 Long term (current) use of insulin

== ENCOUNTER → 2023-06-08 10:56 | Outpatient (BNVA) | payer OTHER, SELFPAY | PROVIDERS: PCP Internal Medicine; Visit Provider Registered Nurse Diabetes Educator | DX: E11.9 Type 2 diabetes mellitus without complications (principal); Z79.4 Long term (current) use of insulin | CPT/HCPCS: 99211 ==

== ENCOUNTER 2023-07-01 10:04 | Outpatient (AMB) | payer OTHER, SELFPAY ==
[2023-07-01 10:39] VITALS: BMI 36.4
--- NOTE | 2023-07-01 10:39 | MHC.AMNUTRGE ---
Intake VS Expanded 07/01/23 10:39 07/01/23 11:29 Height 4 ft 11 in 4 ft 11 in Weight 180 lb 1.883 oz 180 lb BMI 36.4 36.4 Intake Visit Reasons: DM Allergies No Known Allergies Allergy (Verified 05/14/23 08:43) HPI Nutrition Presentation Details Pt presents for MNT for T2DM . Pt was referred by Dr. Vu, transport technician Pt did not bring meter to this appt. Pt reports however, having better glucose levels in the morning , ranging from 80-130s. Pt reports noticing improvement since starting on Ozempic. Pt states she needs refills therefore encounter sent to MD. Typical meal intake: B: coffee/milk 1% and brown sugar with crackers plain L: billy soup with egg and potato added, zero sugar vitamin water D: spaghetti with shrimp and water or flavored water snacks on crackers food frequency: fruits 1-2 /d dairy: yogurt 0-1/wk not including cheese vegetables: 3-4 x/wk protein : eggs, poultry, fish 3-4 oz , 2 x/d fluid intake : 8-10 oz /day physical activity uses cane to walk etoh/smoking: denies GWI-[employer] Equation Height 4 ft 11 in Weight 180 lb Resting Metabolic Rate 1177.99 Calculated Activity Level Sedentary Calories Needed to Maintain Weight 1413.59 Diagnosis Nutrition problem #1 altered nutrition labs As related to (etiology) #1 diagnosis As evidenced by (sign/symptom) #1 elevated HgbA1c (9.2% on 05/04/23) Monitoring/Goals Nutrition problem monitoring HgbA1c and level of knowledge/skill Nutrition goal/outcome list 3 CHO foods (and protein sources of food) and list 3 high fiber foods Learning/Education Readiness to learn good Stages of change preparation Educational materials provided Yes (meal planning) Most Recent Diabetes Results: Microalb/Creat Ratio 13.2 ug/mg cr 05/04/23 Cholesterol 109 mg/dL 05/04/23 HDL Cholesterol 39 mg/dL 05/04/23 Triglycerides 81 mg/dL 05/04/23 Creatinine 0.85 mg/dL (0.5-1.4) 05/04/23 Blood Urea Nitrogen 15 mg/dL (9-16) 05/04/23 Sodium 143 mmol/L (135-145) 05/04/23 Potassium 4.3 mmol/L (3.3-5.1) 05/04/23 Chloride 109 mmol/L (96-108) H 05/04/23 Carbon Dioxide 26 mmol/L (22-29) 05/04/23 Calcium 8.9 mg/dL (8.4-10.2) 05/04/23 AST 13 U/L (5-31) 05/04/23 ALT 10 U/L (0-31) 05/04/23 Total Protein 7.1 g/dL (6.5-8.0) 05/04/23 Albumin 3.7 g/dL (3.5-5.0) 05/04/23 [facility] Medical History Benign essential hypertension Constipation Diabetes mellitus GERD without esophagitis Hyperparathyroidism Obesity (BMI 30-39.9) Overactive bladder Pure hypercholesterolemia Surgical History Hx of section Status post excision of lipoma Status post parathyroidectomy (~09/02/22) Family History Mother Diabetes mellitus Hypertension Father Hypertension Cancer Other Substance abuse Social History Housing: Apartment Alcohol intake: never Patient Tobacco Use Status: Never used Tobacco e-Cigarette/Vaping Use: Never Used Second Hand Smoke Exposure: No service: No Current occupational status: disabled Cognitive needs: Yes (walker) Hearing needs: No Vision needs: Yes Assessment & Plan Assessment & Plan (1) Diabetes mellitus: Code(s): E11.9 - Type 2 diabetes mellitus without complications Qualifiers: Diabetes mellitus type: type 2 Diabetes mellitus long term acute care registered nurse insulin use: with fdc use Diabetes mellitus complication status: without complication Qualified Code(s): E11.9 - Type 2 diabetes mellitus without complications; Z79.4 - intermediate manager (current) use of insulin Plan: wt: 82 kg Est kcal needs as per MSJ: 6722-9890 (40% carb, 30% protein/fat) Est fluid needs as per 30 ml/d: 2500 Est prot per day as per 1 g/kg bw: 82 Recommend fiber intake : 8-10 g per day and gradually increase to 25-28 g per day for women Recommend sodium intake per day : less than 2000 mg Educated patient on: ( R = reviewed V = verbalizes understanding N/R = needs review N/A = not applicable Food sources of carbohydrate, adequate serving sizes and its role in various health conditions: R Differences between complex carbohydrates a simple carbohydrates, role of fiber in diet: R importance of hydration: R Differences between types of fats and role in diet (mono on saturated fat fatty acids, saturated fatty acids, trans fats): NR Food sources of sodium in salt and healthy modifications for heart health in kidney health: NR Healthy plate method concept: R V Physical activity: Benefits a precaution: R Hypoglycemia protocol (rule of 15): NR Dietary prevention of Hyperglycemia: R Patient Instructions: Follow healthy plate method at dinner Drink water with meals aim at having 1 cup of water with each meal keep hydrated with soups, milk , jello Coding Level of Care Code Nutr Indiv Intake (69397) Diagnoses Type 2 diabetes mellitus without complication, with long-term current use of insulin E11.9; Z79.4 Diabetes mellitus type: type 2 Diabetes mellitus fdc insulin use: with long term acute care registered nurse use Diabetes mellitus complication status: without complication Time Spent (min) 30
[2023-07-01 11:29] VITALS: BMI 36.4
== END 2023-07-01 11:04 | disposition home or self-care (01) ==
PROVIDERS: PCP Internal Medicine; Visit Provider Dietitian, Registered
DX: E11.9 Type 2 diabetes mellitus without complications (principal); Z79.4 Long term (current) use of insulin

== ENCOUNTER → 2023-07-01 10:04 | Outpatient (BNVA) | payer OTHER, SELFPAY | PROVIDERS: PCP Internal Medicine; Visit Provider Dietitian, Registered | DX: E11.9 Type 2 diabetes mellitus without complications (principal); Z79.4 Long term (current) use of insulin | CPT/HCPCS: 97802 ==

== ENCOUNTER 2023-08-04 08:28 | Outpatient (REF) | payer OTHER, SELFPAY ==
[2023-08-04 09:00] LABS: MANUAL DIFF FLAG NO
[2023-08-04 09:07] LABS: Basophils Absolute Auto 0.1 X10*3/uL (0.0-0.2); Basophils Percent Auto 0.6 % (0-2); Eosinophils Absolute Auto 0.3 X10*3/uL (0.0-0.4); Eosinophils Percent Auto 2.9 % (0-4); Hematocrit 39.2 % (37.0-47.0); Hemoglobin 12.3 g/dl (12.0-16.0); Imm Gran Abs Auto 0.02 X10*3/uL (0.00-0.03); Imm Gran Pct Auto 0.2 % (0.0-0.4); Lymphocytes Percent Auto 34.1 % (20-40); Mean Corpuscular HGB Conc 31.4 g/dl (31.0-35.0); Mean Corpuscular Hemoglobin 28.8 pg (27.0-33.0); Mean Corpuscular Volume 91.8 fL (80.0-98.0); Mean Platelet Volume 11.6 fL (9.4-12.3); Monocytes Absolute Auto 0.5 X10*3/uL (0.1-1.2); Monocytes Percent Auto 5.6 % (2-11); Neutrophils Absolute Auto 4.9 x10*3/uL (2.0-8.3); Neutrophils Percent Auto 56.6 % (45-73); Platelet Count 239 X10*3/uL (160-400); Red Blood Count 4.27 X10*6/uL (4.20-5.50); White Blood Count 8.7 X10*3/uL (4.8-10.8)
[2023-08-04 09:22] LABS: Estimated Average Glucose 229 mg/dL; Hemoglobin A1c % 9.6 % (<6.0)
[2023-08-04 09:37] LABS: Appearance Urine Cloudy; Color Urine Yellow; Glucose Urine UA Negative (Negative); Leukocyte Esterase Urine Large (3+) (Negative); Nitrite Urine Positive (Negative); Specific Gravity - Urine 1.015 (1.005-1.025); UMIC TRIGGER UACC YES; Urine Blood Negative (Negative); Urine Ketones Negative (Negative); Urine Protein Negative (Neg-Trace)
[2023-08-04 09:40] LABS: Bacteria Urine 4+ (None Seen); Hyaline Casts Urine 0-2 /LPF (0-2); RBC Urine 0-2 /HPF (0-2); UACC Culture Trigger YES; WBC Urine >50 /HPF (0-5)
[2023-08-04 09:52] LABS: Alanine Aminotransferase 10 U/L (0-31); Albumin Level 3.8 g/dL (3.5-5.0); Alkaline Phosphatase 84 U/L (39-117); Anion Gap 13 (12-20); Aspartate Amino Transferase 15 U/L (5-31); Bilirubin Total 0.2 mg/dL (0.0-1.0); Blood Urea Nitrogen 14 mg/dL (9-16); Calcium 9.6 mg/dL (8.4-10.2); Carbon Dioxide 28 mmol/L (22-29); Chloride 107 mmol/L (96-108); Cholesterol 128 mg/dL (<200); Estimated Glomerular Filt Rate > 60; Glucose Fasting 161 mg/dL (60-99); HDL Cholesterol 50 mg/dL (>40); LDL Cholesterol Calculated 64 mg/dL (<100); Potassium 4.9 mmol/L (3.3-5.1); Sodium 143 mmol/L (135-145); Total Protein 7.1 g/dL (6.5-8.0); Triglycerides 73 mg/dL (<150)
[2023-08-04 10:01] LABS: TSH reflex Free T4 0.98 uIU/mL (0.32-4.0)
[2023-08-04 10:04] LABS: Creatinine Urine 60.61 mg/dL; Microalbum/Creatinine Ratio Ur 14.8 ug/mg cr (<30)
== END 2023-08-04 08:29 | disposition home or self-care (01) ==
LOC: HO.LAB 08:28
PROVIDERS: PCP Internal Medicine; Visit Provider Internal Medicine
DX: I10 Essential (primary) hypertension (principal); E78.00 Pure hypercholesterolemia, unspecified; E11.9 Type 2 diabetes mellitus without complications; E55.9 Vitamin D deficiency, unspecified; R30.0 Dysuria
CPT/HCPCS: 36415; 80053; 80061; 81001; 82043; 82306; 82570; 83036; 84443; 85025; 87086; 87088; 87186

== ENCOUNTER 2023-08-12 12:49 | Outpatient (AMB) | payer OTHER, SELFPAY ==
[2023-08-12 12:50] VITALS: BP 122/76; PULSE 83; O2SAT 96; BMI 36.4
--- NOTE | 2023-08-12 12:50 | MHC.PC.OV ---
Vital Signs 08/12/23 12:50 Height 4 ft 11 in Weight 180 lb BMI 36.4 BP 122/76 Blood Pressure Location Lt brachial Position Sitting Pulse 83 Pulse Source Pulse Oximeter Pulse Oximetry (%) 96 Oxygen Delivery Method Room Air Intake Visit Reasons: DM, constipation, HTN, GERD Account Specialist Required: No Accompanied by: Self / Same As Patient Allergies No Known Allergies Allergy (Verified 11/25/23 13:36) Medication List - Last Reconciled 11/25/23 by Rodrigo Damon MD atorvastatin 20 mg PO DAILY 90 days benzonatate 200 mg PO TID PRN blood sugar diagnostic (FreeStyle Lite Strips) As directed once a day blood-glucose meter (FreeStyle Lite Meter kit) As directed cyclobenzaprine 5 mg PO TID PRN 10 days diclofenac sodium 1% 2 grams topical QID PRN dorzolamide-timolol 22.3-6.8 mg/mL 1 drp ophthalmic (eye) BID enalapril maleate 10 mg PO DAILY 90 days flash glucose scanning reader (BTCJamyle Terri 2 Landrum) As directed flash glucose sensor (FreeStyle Terri 2 Sensor kit) As directed change every 14 days gabapentin 100 mg PO BID 30 days glucagon 3 mg/actuation (Baqsimi) 3 mg intranasal ONCE ibuprofen 600 mg PO Q8H PRN insulin aspart U-100 12 to 15 units 3 times a day with meals per sliding scale subcut; insulin degludec 30 units (0.3 mL) subcut BEDTIME 30 days insulin syr/ndl U100 half geoffrey (BD Insulin Syringe Ultra-Fine (half unit)) Use 4 times daily ketorolac 0.5% 0 drps ophthalmic (eye) lancets (FreeStyle Lancets) As directed once a day latanoprost 0.005% 0 drps ophthalmic (eye) metformin 500 mg PO BID netarsudil 0.02% (Rhopressa) 1 drp ophthalmic-Right BEDTIME omeprazole 40 mg PO DAILY 90 days oxybutynin chloride ER 5 mg PO DAILY 90 days pen needle, diabetic (BD Ultra-Fine Mini Pen Needle) Use as directed once a day with Tresiba semaglutide (Ozempic) 0.25 mg (0.368 mL) subcut QWEEK 12 weeks sennosides (senna) 8.6 mg PO BEDTIME PRN 30 days Tobacco use date assessed: 08/12/23 Fall risk assessment: No Falls in past year Last assessed Fall Risk: 08/12/23 Dental Screening Dental Screen Date: 08/12/23 Did you have a dental visit in the last 12 months?: No Did you have a dental problem in the last 6 months where you did not have access to dental care?: No Was dental information given to patient?: No HPI DM, constipation, HTN, GERD HPI Details Patient comes in today for her follow up visit States that she feels okay She denies any headaches or dizziness Denies any chest pains, no SOB No nausea/vomiting, no abdominal pain No change in bowel habits noted Had her follow up labs done last week - to discuss her results States that she was started on Ozempic injections by Dr. Vu a few days after her last visit in April 2023 and she has been tolerating the Rx so far without any problems PFSH Medical History Hyperparathyroidism Constipation Obesity (BMI 30-39.9) Overactive bladder GERD without esophagitis Pure hypercholesterolemia Benign essential hypertension Diabetes mellitus Surgical History Status post parathyroidectomy (~09/02/22) Hx of section Status post excision of lipoma Family History Mother Diabetes mellitus Hypertension Father Hypertension Cancer Other Substance abuse Social History Housing: Apartment Alcohol intake: never Patient Tobacco Use Status: Never used Tobacco e-Cigarette/Vaping Use: Never Used Second Hand Smoke Exposure: No service: No Current occupational status: disabled Cognitive needs: Yes (walker) Hearing needs: No Vision needs: Yes Questionnaire PHQ-9 Over the last 2 weeks, how often have you been bothered by any of the following problems? 1. Little interest or pleasure in doing things: not at all 2. Feeling down, depressed, or hopeless: not at all 3. Trouble falling or staying asleep, or sleeping too much: not at all 4. Feeling tired or having little energy: not at all 5. Poor appetite or overeating: not at all 6. Feeling bad about yourself - or that you are a failure or have let yourself or your family down: not at all 7. Trouble concentrating on things, such as reading the newspaper or watching television: not at all 8. Moving or speaking so slowly that other people could have noticed. Or the opposite - being so fidgety or restless that you have been moving around a lot more than usual: not at all 9. Thoughts that you would be better off or of hurting yourself in some way: not at all Total score: 0 Depression Screening Interpretation: Negative Depression Screening Done: Yes 71517 - PHQ-9 Billing: Yes Source: Developed by Drs. Gerber Vee, Rocio Ross, Roland Henriquez and colleagues, with an educational víctor from [employer]. Thrive Questionnaire Date Thrive assessed: 08/12/23 I am a: Patient What is your living situation today?: I have a steady place to live Within the past 12 months, did the food you bought not last and you didn't have the money to get more?: Never true Within the past 12 months, did you worry whether your food would run out before you got money to buy more?: Never true Do you have trouble paying for medicines?: No Do you have trouble getting transportation to medical appointments?: No Do you have trouble paying your heating and electricity bill?: No Do you have trouble taking care of your child, family member or friend?: No Do you have trouble with day-to-day activities such as bathing, preparing meals, shopping, managing finances, etc.?: No Are you currently unemployed and looking for a job?: No Are you interested in more education?: No Please select the resources that you would like help with: None Currently or been in a relationship where the following occur: no concerns reported AUDIT C Alcohol Use Questionnaire (AUDIT-C) 1. How often do you have a drink containing alcohol?: Never 3. How often do you have six or more drinks on one occasion?: Never Total Score: 0 Score Reviewed/Action Taken: Yes MOLLY-7 AMB Questionnaire MOLLY-7 Date MOLLY - 7 assessed: 08/12/23 Feeling nervous, anxious, or on edge: 0 = Not at all Not being able to stop or control worryin = Not at all Worrying too much about different things: 0 = Not at all Trouble relaxin = Not at all Being so restless that it is hard to sit still: 0 = Not at all Becoming easily annoyed or irritable: 0 = Not at all Feeling afraid as if something awful might happen: 0 = Not at all Total MOLLY-7 score (0-4 normal; 5-9 mild; 10-14 moderate; 15-21 severe): 0 Source: Developed by Drs. Gerber Vee, Rocio Ross, Roland Henriquez and colleagues, with an educational víctor from [employer]. Review of Systems Const Denies chills, Reports difficulty sleeping (at times), Reports fatigue, Denies fever(s) and Denies headache(s) ENT Denies dysphagia, Denies dizziness, Denies otalgia, Denies headache(s), Denies neck pain, Denies odynophagia and Denies sore throat Card Denies chest pain, Denies palpitations and Denies dyspnea Resp Denies chest congestion, Denies cough and Denies dyspnea GI Denies abdominal pain, Reports constipation (on and off), Denies dysphagia, Denies heartburn, Denies diarrhea, Denies nausea, Denies odynophagia and Denies vomiting Denies difficulty voiding, Denies nocturia, Denies dysuria and Denies urinary urgency Musc Reports back pain (over the lower back), Reports arthralgias (involving multiple joints - include hips and knees) and Denies neck pain Skin/Breast Denies rash Neuro Denies dizziness and Denies headache(s) Endo Reports fatigue and Denies palpitations Physical exam (Primary Care) Vital Signs: Last Vital Signs Pulse 83 08/12/23 12:50 BP 122/76 08/12/23 12:50 Pulse Ox 96 08/12/23 12:50 Oxygen Delivery Method Room Air 08/12/23 12:50 BMI result Body Mass Index 36.4 Tobacco/Smoking Status: Tobacco use Status Tobacco use date assessed 08/12/23 08/12/23 12:52 Patient Tobacco Use Status Never used Tobacco 08/12/23 12:52 e-Cigarette/Vaping Use Never Used 08/12/23 12:52 PHQ-9: PHQ-9 Score PHQ-9: Total score 0 08/12/23 14:10 Depression Screening Interpretation: Negative Thrive Assessment: Date of Thrive Assessment Date Thrive assessed 08/12/23 08/12/23 12:52 Currently or been in a relationship where the following occur: no concerns reported Const General: no acute distress and alert HENMT Ears: TM's normal bilaterally and EAC's normal Throat: Yes posterior oropharynx normal and Yes tonsils normal (no TP congestion noted) Neck Neck: Yes no lymphadenopathy and Yes supple Thyroid: Thyroid normal Resp Auscultation: clear to auscultation bilaterally, no rales and no wheezes Cardio Rate: regular rate Rhythm: regular rhythm Heart sounds: no murmurs GI Palpation (GI): Soft to palpation and nontender Auscultation: normal bowel sounds Back/Spine/Pelvis Thoracic/Lumbar Spine: lumbar spinal tenderness Skin Rashes: no rashes Extrem General: Yes no clubbing, cyanosis or edema Right lower extremity: hip/thigh Details: tenderness Location: of the hip and knee Details: tenderness; no swelling Left lower extremity: hip/thigh Details: tenderness Location: of the hip and knee Details: tenderness; no swelling Results Reviewed Results Reviewed: Laboratory Tests 08/04/23 08/04/23 08/04/23 08:55 08:59 08:59 WBC 8.7 Hgb 12.3 Hct 39.2 Plt Count 239 Sodium 143 Potassium 4.9 Creatinine 0.80 Estimated GFR > 60 Fasting Glucose 161 H Hemoglobin A1c % 9.6 H Calcium 9.6 D AST 15 ALT 10 Triglycerides 73 Cholesterol 128 LDL Cholesterol, Calc 64 HDL Cholesterol 50 25-OH Vitamin D Total 54.0 TSH 0.98 Ur Specific [place] 1.015 Urine Protein Negative Urine Glucose (UA) Negative Urine Blood Negative Urine Nitrite Ur Leukocyte Esterase Microalb/Creat Ratio 11/16/23 11/16/23 08:47 08:51 WBC 8.9 Hgb 12.4 Hct 39.1 Plt Count 242 Sodium 141 Potassium 4.5 Creatinine 0.86 Estimated GFR > 60 Fasting Glucose 118 H Hemoglobin A1c % 8.2 H Calcium 9.5 D AST 16 ALT 11 Triglycerides 125 Cholesterol 131 LDL Cholesterol, Calc 63 HDL Cholesterol 43 25-OH Vitamin D Total TSH 0.98 Ur Specific [place] 1.020 Urine Protein Negative Urine Glucose (UA) Negative Urine Blood Negative Urine Nitrite Positive H Ur Leukocyte Esterase Moderate (2+) H Microalb/Creat Ratio 12.8 Assessment and Plan Assessment & Plan (1) Diabetes mellitus: Code(s): E11.9 - Type 2 diabetes mellitus without complications Qualifiers: Diabetes mellitus type: type 2 Diabetes mellitus terminal clerk insulin use: with nursing home use Diabetes mellitus complication status: without complication Qualified Code(s): E11.9 - Type 2 diabetes mellitus without complications; Z79.4 - longterm (current) use of insulin Plan: HgbA1c was at 9.6% on her labs done last week (was at 9.2% a few months ago) - goal is at least 7.5% or less Reinforced diabetic diet She was previously seeing an brokerage manager based in [place] (patient does not remember the doctor's name) but was referred to [facility] [place] a few months ago and she will now be seeing Dr. Vu in a few days She was taken off her Lantus by endocrinology and started instead on Tresiba 30 units Q HS a few months ago Continue Metformin 500 mg BID and Humalog 12 to 15 units 3 times a day with meals per sliding scale She was also on Trulicity 0.75 mg once a week previously but was taken off this as she did not feel that this was helping and she also apparently has gained a lot of weight while on Trulicity We switched her over to Ozempic a few months ago to see if this will work better for her - to continue on Ozempic at 0.25 mg SQ once a week Per request, will also send in Rx for a Freestyle glucometer (2) Pure hypercholesterolemia: Code(s): E78.00 - Pure hypercholesterolemia, unspecified Plan: Results of her labs done last week reviewed and discussed with patient Reinforced low cholesterol diet Continue Atorvastatin 20 mg QD Will recheck her labs and fasting lipids in 3 months for follow up (3) Benign essential hypertension: Code(s): I10 - Essential (primary) hypertension Plan: Reinforced low sodium diet - goal is systolic BP of at least 140 to 150 mm or less Continue Enalapril 10 mg QD (4) Hyperparathyroidism: Code(s): E21.3 - Hyperparathyroidism, unspecified Plan: S/P parathyroidectomy with Dr. Ferrera in [place] on 09/02/2022 Was reportedly advised by Dr. Ferrera that he will just need to see her for follow up on an as needed basis and for her to just continue seeing her brokerage manager and PCP regularly from now on for routine surveillance/follow up (5) GERD without esophagitis: Code(s): K21.9 - Gastro-esophageal reflux disease without esophagitis Plan: Dietary restrictions reinforced Continue Omeprazole 40 mg QD (6) Constipation: Code(s): K59.00 - Constipation, unspecified Qualifiers: Constipation type: unspecified constipation type Qualified Code(s): K59.00 - Constipation, unspecified Plan: Reinforced increased oral fluids and dietary fiber Was taking Miralax 17 gm QD in the past but states that she stopped taking it a couple of months ago - feels that she was throwing up every time she takes Miralax States that she still has on and off constipation Continue Senna 8.6 mg QD PRN (7) Overactive bladder: Code(s): N32.81 - Overactive bladder Plan: Continue Oxybutynin ER 5 mg QD States that she is still getting up to go to the bathroom about 4 times a night Will consider increasing Rx dosage if her symptoms persist/progress (8) Arthralgia: Code(s): M25.50 - Pain in unspecified joint Qualifiers: Joint pain location: unspecified Qualified Code(s): M25.50 - Pain in unspecified joint Plan: Continue topical Diclofenac 1% gel to apply to affected/painful areas QID PRN and Gabapentin 100 mg BID (9) Obesity (BMI 30-39.9): Code(s): E66.9 - Obesity, unspecified Plan: Reinforced diet; exercise and weight loss may be unrealistic due to patient's age and physical limitations Plan Follow up in 3 months Orders: Orders Lipid Panel 3 Months E78.00 - Pure hypercholesterolemia, unspecified UA CC w/rflx Micro + Cult 3 Months R30.0 - Dysuria Complete Blood Count Auto Diff 3 Months I10 - Essential (primary) hypertension Comprehensive [place]. Panel Fast 3 Months E78.00 - Pure hypercholesterolemia, unspecified Hemoglobin A1c 3 Months E11.9 - Type 2 diabetes mellitus without complications Microalbumin, Random (w Creat) 3 Months E11.9 - Type 2 diabetes mellitus without complications TSH reflex Free T4 3 Months E78.00 - Pure hypercholesterolemia, unspecified Medications: New blood-glucose meter (FreeStyle Lite Meter kit) As directed 1 ea 0RF E11.9 - Type 2 diabetes mellitus without complications Coding Level of Care Code Est Pt Level 4 (10827) Diagnoses Type 2 diabetes mellitus without complication, with long-term current use of insulin E11.9; Z79.4 Diabetes mellitus type: type 2 Diabetes mellitus nursing home insulin use: with terminal clerk use Diabetes mellitus complication status: without complication Pure hypercholesterolemia E78.00 Benign essential hypertension I10 Hyperparathyroidism E21.3 GERD without esophagitis K21.9 Constipation, unspecified constipation type K59.00 Constipation type: unspecified constipation type Overactive bladder N32.81 Arthralgia, unspecified joint M25.50 Joint pain location: unspecified Obesity (BMI 30-39.9) E66.9
== END 2023-08-12 14:11 | disposition home or self-care (01) ==
PROVIDERS: PCP Internal Medicine; Visit Provider Internal Medicine
DX: E11.9 Type 2 diabetes mellitus without complications (principal); Z79.4 Long term (current) use of insulin; E78.00 Pure hypercholesterolemia, unspecified; I10 Essential (primary) hypertension; E21.3 Hyperparathyroidism, unspecified; K21.9 Gastro-esophageal reflux disease without esophagitis; K59.00 Constipation, unspecified; N32.81 Overactive bladder; M25.50 Pain in unspecified joint; E66.9 Obesity, unspecified
CPT/HCPCS: 99499

== ENCOUNTER 2023-08-18 11:03 | Outpatient (AMB) | payer OTHER, SELFPAY ==
[2023-08-18 11:19] VITALS: BMI 37.0
--- NOTE | 2023-08-18 11:19 | A.OFFVIS_ITS ---
Intake VS Expanded 08/18/23 11:19 Height 4 ft 11 in Weight 182 lb 15.739 oz BMI 37.0 Intake Visit Reasons: [id number] Allergies No Known Allergies Allergy (Verified 08/12/23 12:50) HPI Nutrition Presentation Details Pt presents for MNT follow up for T2DM Pt reports doing well, having good appetite. Pt has no concerns or questions Meals typically consist of Am: 2 toast with cheese , coffee snack on fruit lunch: rice/beans and chicken, water or milk dinner: root vegetables,fish or beef and water or leftover lunch meal snacks on pastry and milk or fruit or 1/2 sand (tuna or ham/cheese) or cereal with milk fruits/d: 1-2 vegetables: 3 x/week dairy: 2-3 servings prot: 6-10 oz/d pastries: 1-2 serving/d fluids: water, coffee 24 oz/d Most Recent Diabetes Results: Microalb/Creat Ratio 14.8 ug/mg cr (<30) 08/04/23 Cholesterol 128 mg/dL (<200) 08/04/23 HDL Cholesterol 50 mg/dL (>40) 08/04/23 Triglycerides 73 mg/dL (<150) 08/04/23 Creatinine 0.80 mg/dL (0.5-1.4) 08/04/23 Blood Urea Nitrogen 14 mg/dL (9-16) 08/04/23 Sodium 143 mmol/L (135-145) 08/04/23 Potassium 4.9 mmol/L (3.3-5.1) 08/04/23 Chloride 107 mmol/L (96-108) 08/04/23 Carbon Dioxide 28 mmol/L (22-29) 08/04/23 Calcium 9.6 mg/dL (8.4-10.2) 08/04/23 AST 15 U/L (5-31) 08/04/23 ALT 10 U/L (0-31) 08/04/23 Total Protein 7.1 g/dL (6.5-8.0) 08/04/23 Albumin 3.8 g/dL (3.5-5.0) 08/04/23 [facility] Medical History Benign essential hypertension Constipation Diabetes mellitus GERD without esophagitis Hyperparathyroidism Obesity (BMI 30-39.9) Overactive bladder Pure hypercholesterolemia Surgical History Status post parathyroidectomy (~09/02/22) Hx of section Status post excision of lipoma Family History Mother Diabetes mellitus Hypertension Father Hypertension Cancer Other Substance abuse Social History Housing: Apartment Alcohol intake: never Patient Tobacco Use Status: Never used Tobacco e-Cigarette/Vaping Use: Never Used Second Hand Smoke Exposure: No service: No Current occupational status: disabled Cognitive needs: Yes (walker) Hearing needs: No Vision needs: Yes Assessment & Plan Assessment & Plan (1) Diabetes mellitus: Code(s): E11.9 - Type 2 diabetes mellitus without complications Qualifiers: Diabetes mellitus type: type 2 Diabetes mellitus terminal worker insulin use: with group home use Diabetes mellitus complication status: without complication Qualified Code(s): E11.9 - Type 2 diabetes mellitus without complications; Z79.4 - care home (current) use of insulin Plan: wt: 82 kg Est kcal needs as per MSJ: [id number] (40% carb, 30% protein/fat) Est fluid needs as per 30 ml/d: 2500 Est prot per day as per 1 g/kg bw: 82 Recommend fiber intake : 8-10 g per day and gradually increase to 25-28 g per day for women Recommend sodium intake per day : less than 2000 mg Educated patient on: ( R = reviewed V = verbalizes understanding N/R = needs review N/A = not applicable * Food sources of carbohydrate, adequate serving sizes and its role in various health conditions: R * Differences between complex carbohydrates a simple carbohydrates, role of fiber in diet: R * importance of hydration: R * Differences between types of fats and role in diet (mono on saturated fat fatty acids, saturated fatty acids, trans fats): R * Food sources of sodium in salt and healthy modifications for heart health in kidney health: R * Healthy plate method concept: R V * Physical activity: Benefits a precaution: R * Hypoglycemia protocol (rule of 15): NR * Dietary prevention of Hyperglycemia: R Patient Instructions: Take all DM meds as rx by MD Choose a fruit in place of pastries 2 times a day keep physically active as able, chair exercise keep hydrated by having water with meals/snacks Coding Level of Care Code Nutr Indiv Subseq (12214) Diagnoses Type 2 diabetes mellitus without complication, with long-term current use of insulin E11.9; Z79.4 Diabetes mellitus type: type 2 Diabetes mellitus group home insulin use: with group home use Diabetes mellitus complication status: without complication Time Spent (min) 20
== END 2023-08-18 11:54 | disposition home or self-care (01) ==
PROVIDERS: PCP Internal Medicine; Visit Provider Dietitian, Registered
DX: E11.9 Type 2 diabetes mellitus without complications (principal); Z79.4 Long term (current) use of insulin

== ENCOUNTER → 2023-08-18 11:03 | Outpatient (BNVA) | payer OTHER, SELFPAY | PROVIDERS: PCP Internal Medicine; Visit Provider Dietitian, Registered | DX: E11.9 Type 2 diabetes mellitus without complications (principal); Z79.4 Long term (current) use of insulin | CPT/HCPCS: 97803 ==

== ENCOUNTER 2023-08-27 18:13 | Emergency (ER) | payer OTHER, SELFPAY ==
--- NOTE | ~2023-08-27 | XR_ITS ---
EXAMINATION: XR CHEST CLINICAL INFORMATION: SOB and cough COMPARISON: None available. TECHNIQUE: 2 views of the chest were obtained. FINDINGS: No significant abnormality is noted involving the heart, lungs, mediastinum, bony thorax or soft tissues. XR/XR chest 2V IMPRESSION: Unremarkable chest examination.
--- NOTE | 2023-08-27 18:40 | ECG_ITS ---
Test Reason : SOB Blood Pressure : / mmHG Vent. Rate : 081 BPM Atrial Rate : 081 BPM P-R Int : 146 ms QRS Dur : 092 ms QT Int : 352 ms P-R-T Axes : 049 -30 046 degrees QTc Int : 408 ms Normal sinus rhythm Left axis deviation Moderate voltage criteria for LVH, may be normal variant ( R in aVL , [place] product ) Abnormal ECG No previous ECGs available Referred By: Keiry Bashir Electronically Signed By:JOSUE MCCOLLUM
--- NOTE | 2023-08-27 18:40 | ED_ITS ---
HPI - General Adult General Stated complaint: COUGH X 1 DAY Related Data Home Medications Medication Instructions Recorded Confirmed ketorolac 0.5 % eye drops 0 drp ophthalmic (eye) 12/30/21 05/11/23 latanoprost 0.005 % eye drops 0 drp ophthalmic (eye) 12/30/21 05/11/23 netarsudil 0.02 % eye drops 1 drp ophthalmic-Right BEDTIME 12/30/21 05/11/23 (Rhopressa) dorzolamide 22.3 mg-timolol 6.8 1 drp ophthalmic (eye) BID 12/03/22 05/11/23 mg/mL eye drops Previous Rx's Medication Instructions Recorded blood sugar diagnostic (FreeStyle #100 ea 01/03/21 Lite Strips) ibuprofen 600 mg tablet 600 mg PO Q8H PRN pain #10 tabs 01/28/21 cyclobenzaprine 5 mg tablet 5 mg PO TID PRN muscle spasm 10 11/29/21 days #30 tabs insulin aspart U-100 100 unit/mL See Rx Instructions subcut 10/09/22 (3 mL) subcutaneous pen .COMPLEX #15 mL insulin syr/ndl U100 half geoffrey 0.3 #100 ea 10/09/22 mL 31 gauge x 5/16 (BD Insulin Syringe Ultra-Fine (half unit)) lancets 28 gauge (FreeStyle #100 ea 10/10/22 Lancets) diclofenac sodium 1 % topical gel 2 g topical QID PRN pain #100 grams 01/15/23 insulin degludec 100 unit/mL (3 30 unit (0.3 mL) subcut BEDTIME 30 01/15/23 mL) subcutaneous pen days #9 mL metformin 500 mg tablet 500 mg PO BID #180 tabs 01/15/23 oxybutynin chloride 5 mg 5 mg PO DAILY 90 days #90 tabs 01/15/23 tablet,extended release 24 hr enalapril maleate 10 mg tablet 10 mg PO DAILY 90 days #90 tabs 02/02/23 atorvastatin 20 mg tablet 20 mg PO DAILY 90 days #90 tabs 03/31/23 sennosides 8.6 mg tablet (senna) 8.6 mg PO BEDTIME PRN constipation 05/11/23 30 days #30 tabs glucagon 3 mg/actuation nasal 3 mg intranasal ONCE #2 ea 05/14/23 spray (Baqsimi) gabapentin 100 mg capsule 100 mg PO BID pain 30 days #60 caps 05/26/23 flash glucose scanning reader #1 ea 06/09/23 (FreeStyle Terri 2 [place]) flash glucose sensor (FreeStyle #2 06/09/23 Terri 2 Sensor kit) pen needle, diabetic 31 gauge x #100 ea 06/16/23 3/16 (BD Ultra-Fine Mini Pen Needle) semaglutide 0.25 mg or 0.5 mg (2 0.25 mg (0.368 mL) subcut QWEEK 12 07/01/23 mg/3 mL) subcutaneous pen injector weeks #4.416 mL (Ozempic) omeprazole 40 mg capsule,delayed 40 mg PO DAILY 90 days #90 caps 08/05/23 release blood-glucose meter (FreeStyle #1 08/12/23 Lite Meter kit) benzonatate 200 mg capsule 200 mg PO TID PRN cough #14 caps 08/28/23 Allergies Allergy/AdvReac Type Severity Reaction Status Date / Time No Known Allergies Allergy Verified 08/12/23 12:50 [facility] Past Medical History Medical History Hyperparathyroidism Constipation Obesity (BMI 30-39.9) Overactive bladder GERD without esophagitis Pure hypercholesterolemia Benign essential hypertension Diabetes mellitus Surgical History Status post parathyroidectomy (~09/02/22) Hx of section Status post excision of lipoma Family History Family History Mother Diabetes mellitus Hypertension Father Hypertension Cancer Other Substance abuse Social History Social History Housing: Apartment Alcohol intake: never Patient Tobacco Use Status: Never used Tobacco Smoked in Last 30 Days: No e-Cigarette/Vaping Use: Never Used Second Hand Smoke Exposure: No Use of substances other than those prescribed or required for medical reasons: No Advance Directives: No Advance Directives Information Provided: No service: No Current occupational status: disabled Cognitive needs: Yes (walker) Hearing needs: No Vision needs: Yes Course Course Course Narrative: This is an RME: Additional HPI, ROS, PE not included below will be deferred to primary provider. This is a 82-year-old female presenting to the emergency department for evaluation of cough and shortness of breath. Patient with dry cough noted in triage. Vital signs within normal limits. Plan: Labs, EKG, chest x-ray, viral swabs Reevaluation(s) Reevaluation #1: pt eloped without completing treatment/evaluation. Medical Decision Making Lab Data 08/27/23 19:43 08/27/23 19:43 Labs: Lab Results 08/27/23 Range/Units 19:43 WBC 8.1 (4.8-10.8) X10*3/uL RBC 4.27 (4.20-5.50) X10*6/uL Hgb 12.3 (12.0-16.0) g/dl Hct 38.2 (37.0-47.0) % MCV 89.5 (80.0-98.0) fL MCH 28.8 (27.0-33.0) pg MCHC 32.2 (31.0-35.0) g/dl RDW 14.9 (11.0-16.0) % Plt Count 207 (160-400) X10*3/uL MPV 10.8 (9.4-12.3) fL Immature Gran % (Auto) 0.2 (0.0-0.4) % Neut % (Auto) 63.2 (45-73) % Lymph % (Auto) 25.8 (20-40) % [place] % (Auto) 6.7 (2-11) % Eos % (Auto) 3.5 (0-4) % Baso % (Auto) 0.6 (0-2) % Lymph # (Auto) 2.1 (1.2-4.9) X10*3/uL [place] # (Auto) 0.5 (0.1-1.2) X10*3/uL Eos # (Auto) 0.3 (0.0-0.4) X10*3/uL Baso # (Auto) 0.1 (0.0-0.2) X10*3/uL Abs Immat Gran (auto) 0.02 (0.00-0.03) X10*3/uL Absolute Neuts (auto) 5.1 (2.0-8.3) x10*3/uL Absolute Nucleated RBC 0.000 (0.0-0.012) X10*3/uL Nucleated RBC % (auto) 0.0 (0.0-0.2) /100WBC Sodium 141 (135-145) mmol/L Potassium 3.9 D (3.3-5.1) mmol/L Chloride 105 (96-108) mmol/L Carbon Dioxide 26 (22-29) mmol/L Anion Gap 14 (12-20) BUN 13 (9-16) mg/dL Creatinine 0.76 (0.5-1.4) mg/dL Estim Creat Clear Calc TNP Estimated GFR > 60 Random Glucose 137 H (60-115) mg/dL Calcium 8.9 D (8.4-10.2) mg/dL Magnesium 1.8 (1.6-2.6) mg/dL Total Bilirubin 0.3 (0.0-1.0) mg/dL Direct Bilirubin 0.1 (0.0-0.5) mg/dL AST 18 (5-31) U/L ALT 14 (0-31) U/L Alkaline Phosphatase 83 (39-117) U/L B-Natriuretic Peptide < 10 (<100) pg/mL Total Protein 7.1 (6.5-8.0) g/dL Albumin 3.8 (3.5-5.0) g/dL Influenza Type A (PCR) NEGATIVE (Negative) Influenza Type B (PCR) NEGATIVE (Negative) RSV RNA Qual (PCR) POSITIVE A (Negative) SARS-CoV-2 RNA (RT-PCR) NEGATIVE (Negative) Discharge Plan Discharge Clinical Impression: Cough Patient Disposition: Left W/O Completing Treatment Prescriptions: No Action (DME) lancets [FreeStyle Lancets] 28 gauge misc See Rx Instructions .ROUTE .MEDSUPPLY Qty: 100 12RF Rx Instructions: As directed once a day enalapril maleate 10 mg tablet 10 mg PO DAILY 90 Days Qty: 90 1RF atorvastatin 20 mg tablet 20 mg PO DAILY 90 Days Qty: 90 1RF gabapentin 100 mg capsule 100 mg PO BID 30 Days Qty: 60 3RF Rx Instructions: Take 1 capsule 2 times a day for pain (DME) FreeStyle Terri 2 [place] Misc See Rx Instructions .Route Qty: 1 0RF Rx Instructions: As directed (DME) FreeStyle Terri 2 Sensor Kit See Rx Instructions .Route Qty: 2 5RF Rx Instructions: As directed change every 14 days (DME) pen needle, diabetic [BD Ultra-Fine Mini Pen Needle] 31 gauge x 3/16 needle See Rx Instructions .Route Qty: 100 3RF Rx Instructions: Use as directed once a day with Tresiba Ozempic 0.25 mg or 0.5 mg (2 mg/3 mL) pen injector 0.25 mg subcut QWEEK 84 Days Qty: 4.416 1RF omeprazole 40 mg capsule,delayed release(DR/EC) 40 mg PO DAILY 90 Days Qty: 90 1RF ibuprofen 600 mg tablet 600 mg PO Q8H PRN (Reason: pain) Qty: 10 0RF benzonatate 200 mg capsule 200 mg PO TID PRN (Reason: cough) Qty: 14 0RF (DME) FreeStyle Lite Strips Strip See Rx Instructions .ROUTE .MEDSUPPLY Qty: 100 12RF Rx Instructions: As directed once a day diclofenac sodium 1 % gel 2 g topical QID PRN (Reason: pain) Qty: 100 1RF Rx Instructions: apply to affected/painful areas up to 4 times a day as needed metformin 500 mg tablet 500 mg PO BID Qty: 180 1RF oxybutynin chloride 5 mg tablet extended release 24hr 5 mg PO DAILY 90 Days Qty: 90 1RF insulin degludec 100 unit/mL (3 mL) insulin pen 30 unit subcut BEDTIME 30 Days Qty: 9 3RF cyclobenzaprine 5 mg tablet 5 mg PO TID PRN (Reason: muscle spasm) 10 Days Qty: 30 0RF insulin aspart U-100 100 unit/mL (3 mL) insulin pen See Rx Instructions subcut .COMPLEX Qty: 15 3RF Rx Instructions: 12 to 15 units 3 times a day with meals per sliding scale subcut; (DME) BD Insulin Syringe (half unit) 0.3 mL 31 gauge x 5/16 syringe See Rx Instructions .Route Qty: 100 4RF Rx Instructions: Use 4 times daily sennosides [senna] 8.6 mg tablet 8.6 mg PO BEDTIME PRN (Reason: constipation) 30 Days Qty: 30 3RF (DME) blood-glucose meter [FreeStyle Lite Meter] Kit See Rx Instructions .ROUTE .MEDSUPPLY Qty: 1 0RF Rx Instructions: As directed Rhopressa 0.02 % drops 1 drp ophthalmic-Right BEDTIME latanoprost 0.005 % drops 0 drp ophthalmic (eye) ketorolac 0.5 % drops 0 drp ophthalmic (eye) dorzolamide-timolol 22.3-6.8 mg/mL drops 1 drp ophthalmic (eye) BID Baqsimi 3 mg/actuation spray,non-aerosol 3 mg intranasal ONCE Qty: 2 3RF Discharge Date/Time: 08/28/23 06:38
[2023-08-27 19:51] LABS: MANUAL DIFF FLAG NO
[2023-08-27 19:55] LABS: Basophils Absolute Auto 0.1 X10*3/uL (0.0-0.2); Basophils Percent Auto 0.6 % (0-2); Eosinophils Absolute Auto 0.3 X10*3/uL (0.0-0.4); Eosinophils Percent Auto 3.5 % (0-4); Hematocrit 38.2 % (37.0-47.0); Hemoglobin 12.3 g/dl (12.0-16.0); Imm Gran Abs Auto 0.02 X10*3/uL (0.00-0.03); Imm Gran Pct Auto 0.2 % (0.0-0.4); Lymphocytes Absolute Auto 2.1 X10*3/uL (1.2-4.9); Lymphocytes Percent Auto 25.8 % (20-40); Mean Corpuscular HGB Conc 32.2 g/dl (31.0-35.0); Mean Corpuscular Hemoglobin 28.8 pg (27.0-33.0); Mean Corpuscular Volume 89.5 fL (80.0-98.0); Mean Platelet Volume 10.8 fL (9.4-12.3); Monocytes Absolute Auto 0.5 X10*3/uL (0.1-1.2); Monocytes Percent Auto 6.7 % (2-11); Neutrophils Absolute Auto 5.1 x10*3/uL (2.0-8.3); Neutrophils Percent Auto 63.2 % (45-73); Platelet Count 207 X10*3/uL (160-400); Red Blood Count 4.27 X10*6/uL (4.20-5.50); Red Cell Distribution Width 14.9 % (11.0-16.0); White Blood Count 8.1 X10*3/uL (4.8-10.8)
[2023-08-27 20:10] LABS: Alanine Aminotransferase 14 U/L (0-31); Albumin Level 3.8 g/dL (3.5-5.0); Alkaline Phosphatase 83 U/L (39-117); Anion Gap 14 (12-20); Aspartate Amino Transferase 18 U/L (5-31); Bilirubin Direct 0.1 mg/dL (0.0-0.5); Bilirubin Total 0.3 mg/dL (0.0-1.0); Blood Urea Nitrogen 13 mg/dL (9-16); Calcium 8.9 mg/dL (8.4-10.2); Carbon Dioxide 26 mmol/L (22-29); Chloride 105 mmol/L (96-108); Estimated Glomerular Filt Rate > 60; Glucose Random 137 mg/dL (60-115); Magnesium 1.8 mg/dL (1.6-2.6); Potassium 3.9 mmol/L (3.3-5.1); Sodium 141 mmol/L (135-145); Total Protein 7.1 g/dL (6.5-8.0)
[2023-08-27 20:15] LABS: B Type Natriuretic Peptide < 10 pg/mL (<100)
[2023-08-27 20:33] LABS: Influenza A PCR NEGATIVE (Negative); Influenza B PCR NEGATIVE (Negative); Resp Syncy Virus RNA Qual PCR POSITIVE (Negative); SARS COV2 PCR INHOUSE NEGATIVE (Negative)
== END 2023-08-28 06:38 | disposition left against medical advice (07) ==
LOC: HO.ED 08-28 06:38
PROVIDERS: Physician Assistant Medical
DX: R05.9 Cough, unspecified (principal); R06.02 Shortness of breath; B97.4 Respiratory syncytial virus as the cause of diseases classified elsewhere; Z53.21 Procedure and treatment not carried out due to patient leaving prior to being seen by health care provider; E11.9 Type 2 diabetes mellitus without complications; I10 Essential (primary) hypertension; E78.00 Pure hypercholesterolemia, unspecified; Z20.822 Contact with and (suspected) exposure to COVID-19; Z20.828 Contact with and (suspected) exposure to other viral communicable diseases; Z79.4 Long term (current) use of insulin; Z79.02 Long term (current) use of antithrombotics/antiplatelets; Z79.899 Other long term (current) drug therapy
CPT/HCPCS: 0241U; 36415; 71046; 80048; 80076; 83735; 83880; 85025; 93005; 99282; 99283

== ENCOUNTER 2023-08-27 18:32 | Emergency (ER) | payer OTHER, SELFPAY ==
[2023-08-27 18:34] VITALS: BP 150/72; BP 162/94; PULSE 83; PULSE 86; RESP 16; TEMP 37.1; O2SAT 96; BMI 36.4
[2023-08-27 23:30] VITALS: BP 118/68; PULSE 83; RESP 20; TEMP 36.2; O2SAT 96
[2023-08-28 00:03] VITALS: BP 137/66; PULSE 83; RESP 18; TEMP 36.8; O2SAT 97
[2023-08-28 00:44] VITALS: O2SAT 98
[2023-08-28] MEDS: Benzonatate 100 MG CAPSULE 200 MG PO (01:01)
--- NOTE | 2023-08-28 01:29 | ED_ITS ---
HPI - URI/Sore Throat General Chief Complaint: Upper Respiratory Symptoms Stated Complaint: Coughing/which delays her breathing Time Seen by Provider: 08/28/23 00:27 Source: patient, family and general maintenance helper Mode of arrival: ambulatory History of Present Illness HPI Narrative: 82F seen earlier today but concerned because she continues to cough Related Data Home Medications Medication Instructions Recorded Confirmed ketorolac 0.5 % eye drops 0 drp ophthalmic (eye) 12/30/21 05/11/23 latanoprost 0.005 % eye drops 0 drp ophthalmic (eye) 12/30/21 05/11/23 netarsudil 0.02 % eye drops 1 drp ophthalmic-Right BEDTIME 12/30/21 05/11/23 (Rhopressa) dorzolamide 22.3 mg-timolol 6.8 1 drp ophthalmic (eye) BID 12/03/22 05/11/23 mg/mL eye drops Previous Rx's Medication Instructions Recorded blood sugar diagnostic (FreeStyle #100 ea 01/03/21 Lite Strips) ibuprofen 600 mg tablet 600 mg PO Q8H PRN pain #10 tabs 01/28/21 cyclobenzaprine 5 mg tablet 5 mg PO TID PRN muscle spasm 10 11/29/21 days #30 tabs insulin aspart U-100 100 unit/mL See Rx Instructions subcut 10/09/22 (3 mL) subcutaneous pen .COMPLEX #15 mL insulin syr/ndl U100 half geoffrey 0.3 #100 ea 10/09/22 mL 31 gauge x 5/16 (BD Insulin Syringe Ultra-Fine (half unit)) lancets 28 gauge (FreeStyle #100 ea 10/10/22 Lancets) diclofenac sodium 1 % topical gel 2 g topical QID PRN pain #100 grams 01/15/23 insulin degludec 100 unit/mL (3 30 unit (0.3 mL) subcut BEDTIME 30 01/15/23 mL) subcutaneous pen days #9 mL metformin 500 mg tablet 500 mg PO BID #180 tabs 01/15/23 oxybutynin chloride 5 mg 5 mg PO DAILY 90 days #90 tabs 01/15/23 tablet,extended release 24 hr enalapril maleate 10 mg tablet 10 mg PO DAILY 90 days #90 tabs 02/02/23 atorvastatin 20 mg tablet 20 mg PO DAILY 90 days #90 tabs 03/31/23 sennosides 8.6 mg tablet (senna) 8.6 mg PO BEDTIME PRN constipation 05/11/23 30 days #30 tabs glucagon 3 mg/actuation nasal 3 mg intranasal ONCE #2 ea 05/14/23 spray (Baqsimi) gabapentin 100 mg capsule 100 mg PO BID pain 30 days #60 caps 05/26/23 flash glucose scanning reader #1 ea 06/09/23 (FreeStyle Terri 2 [place]) flash glucose sensor (FreeStyle #2 ea 06/09/23 Terri 2 Sensor kit) pen needle, diabetic 31 gauge x #100 ea 06/16/23 3/16 (BD Ultra-Fine Mini Pen Needle) semaglutide 0.25 mg or 0.5 mg (2 0.25 mg (0.368 mL) subcut QWEEK 12 07/01/23 mg/3 mL) subcutaneous pen injector weeks #4.416 mL (Ozempic) omeprazole 40 mg capsule,delayed 40 mg PO DAILY 90 days #90 caps 08/05/23 release blood-glucose meter (FreeStyle #1 ea 08/12/23 Lite Meter kit) benzonatate 200 mg capsule 200 mg PO TID PRN cough #14 caps 08/28/23 Allergies Allergy/AdvReac Type Severity Reaction Status Date / Time No Known Allergies Allergy Verified 08/12/23 12:50 Review of Systems Review of Systems: Pertinent positives and negatives as stated in HPI [facility] Past Medical History Source: nursing notes reviewed Medical History Hyperparathyroidism Constipation Obesity (BMI 30-39.9) Overactive bladder GERD without esophagitis Pure hypercholesterolemia Benign essential hypertension Diabetes mellitus Surgical History Status post parathyroidectomy (~09/02/22) Hx of section Status post excision of lipoma Family History Family History Mother Diabetes mellitus Hypertension Father Hypertension Cancer Other Substance abuse Social History Social History Housing: Apartment Alcohol intake: never Patient Tobacco Use Status: Never used Tobacco Smoked in Last 30 Days: No e-Cigarette/Vaping Use: Never Used Second Hand Smoke Exposure: No Use of substances other than those prescribed or required for medical reasons: No Advance Directives: No Advance Directives Information Provided: No service: No Current occupational status: disabled Cognitive needs: Yes (walker) Hearing needs: No Vision needs: Yes Physical Exam Vital Signs: Vital Signs: Last Vital Signs Temp 98.2 F 08/28/23 00:03 Pulse 83 08/28/23 00:03 Resp 18 08/28/23 00:03 BP 137/66 08/28/23 00:03 Pulse Ox 98 08/28/23 00:44 O2 Del Method Room Air 08/28/23 00:44 BMI result Body Mass Index 36.4 VITAL SIGNS: Reviewed. GENERAL: Well developed, well nourished, in no acute distress. HEAD: Normocephalic/atraumatic EYES: PERRLA, EOMI LUNGS: Normal breath sounds. No adventitious sounds or accessory muscle use. SpO2<98> CARDIOVASCULAR: Regular rate and rhythm without noted murmurs ABDOMEN: Soft, non-tender, non-distended with bowel sounds. MUSCULOSKELETAL: No tenderness, deformities, or effusions noted on gross inspection. EXTREMITIES: No cyanosis, clubbing or edema. SKIN: Inspection of the skin reveals no rashes NEUROLOGIC: Alert and oriented x 4. Strength and sensation to light touch were grossly intact x 4. Medications Administered Discontinued Medications Generic Name Dose Route Start Last Admin Trade Name Freq PRN Reason Stop Dose Admin Benzonatate 200 mg 08/28/23 00:40 08/28/23 01:01 Benzonatate 100 Mg Capsule PO 08/28/23 00:41 200 mg ONCE ONE Administration Guaifenesin/Codeine Phosphate 5 ml 08/28/23 01:27 08/28/23 01:41 Guaifen/Codeine Sf 200/20/10ml 10 Ml Liquid PO 08/28/23 01:28 5 ml ONCE ONE Administration Medical Decision Making Medical Decision Making MDM Narrative: 82-year-old female who presents for persistent cough in earlier diagnosed with RSV, she is oxygenating well on room air. She received a dose of Tessalon Perles with some mild improvement and was discharged with remaining prescription. Differential Diagnosis Differential Diagnoses: The differential diagnosis associated with the presentation includes Please see the discussion above Admission/Observation Consideration of admission/observation: Escalation of care including admission/observation considered Please see the discussion above External Record Review External record reviewed: Outpatient record and Prior outpatient labs Discharge Plan Discharge Clinical Impression: Cough, RSV (respiratory syncytial virus infection) Patient Disposition: Home, Self-Care Instructions: Respiratory Syncytial Virus (ED), Cold Symptoms (ED) Additional Instructions: 1. Reanudar todos los medicamentos caseros seg?n lo recetado. 2. Le caldera recetado un medicamento para controlar la tos y puede usarlo junto con Robitussin y NyQuil de venta terri. Regrese a la carito de emergencias si los s?ntomas empeoran. 1. Resume all home medications as prescribed. 2. You have been prescribed a medication for cough control and you can use this medicine together with [id number] Robitussin and NyQuil. Return to the ER for any worsening symptoms. Prescriptions: New benzonatate 200 mg capsule 200 mg PO TID PRN (Reason: cough) Qty: 14 0RF No Action (DME) lancets [FreeStyle Lancets] 28 gauge misc See Rx Instructions .ROUTE .MEDSUPPLY Qty: 100 12RF Rx Instructions: As directed once a day enalapril maleate 10 mg tablet 10 mg PO DAILY 90 Days Qty: 90 1RF atorvastatin 20 mg tablet 20 mg PO DAILY 90 Days Qty: 90 1RF gabapentin 100 mg capsule 100 mg PO BID 30 Days Qty: 60 3RF Rx Instructions: Take 1 capsule 2 times a day for pain (DME) FreeStyle Terri 2 [place] Misc See Rx Instructions .Route Qty: 1 0RF Rx Instructions: As directed (DME) FreeStyle Terri 2 Sensor Kit See Rx Instructions .Route Qty: 2 5RF Rx Instructions: As directed change every 14 days (DME) pen needle, diabetic [BD Ultra-Fine Mini Pen Needle] 31 gauge x 3/16 needle See Rx Instructions .Route Qty: 100 3RF Rx Instructions: Use as directed once a day with Tresiba Ozempic 0.25 mg or 0.5 mg (2 mg/3 mL) pen injector 0.25 mg subcut QWEEK 84 Days Qty: 4.416 1RF omeprazole 40 mg capsule,delayed release(DR/EC) 40 mg PO DAILY 90 Days Qty: 90 1RF ibuprofen 600 mg tablet 600 mg PO Q8H PRN (Reason: pain) Qty: 10 0RF (DME) FreeStyle Lite Strips Strip See Rx Instructions .ROUTE .MEDSUPPLY Qty: 100 12RF Rx Instructions: As directed once a day diclofenac sodium 1 % gel 2 g topical QID PRN (Reason: pain) Qty: 100 1RF Rx Instructions: apply to affected/painful areas up to 4 times a day as needed metformin 500 mg tablet 500 mg PO BID Qty: 180 1RF oxybutynin chloride 5 mg tablet extended release 24hr 5 mg PO DAILY 90 Days Qty: 90 1RF insulin degludec 100 unit/mL (3 mL) insulin pen 30 unit subcut BEDTIME 30 Days Qty: 9 3RF cyclobenzaprine 5 mg tablet 5 mg PO TID PRN (Reason: muscle spasm) 10 Days Qty: 30 0RF insulin aspart U-100 100 unit/mL (3 mL) insulin pen See Rx Instructions subcut .COMPLEX Qty: 15 3RF Rx Instructions: 12 to 15 units 3 times a day with meals per sliding scale subcut; (DME) BD Insulin Syringe (half unit) 0.3 mL 31 gauge x 5/16 syringe See Rx Instructions .Route Qty: 100 4RF Rx Instructions: Use 4 times daily sennosides [senna] 8.6 mg tablet 8.6 mg PO BEDTIME PRN (Reason: constipation) 30 Days Qty: 30 3RF (DME) blood-glucose meter [FreeStyle Lite Meter] Kit See Rx Instructions .ROUTE .MEDSUPPLY Qty: 1 0RF Rx Instructions: As directed Rhopressa 0.02 % drops 1 drp ophthalmic-Right BEDTIME latanoprost 0.005 % drops 0 drp ophthalmic (eye) ketorolac 0.5 % drops 0 drp ophthalmic (eye) dorzolamide-timolol 22.3-6.8 mg/mL drops 1 drp ophthalmic (eye) BID Baqsimi 3 mg/actuation spray,non-aerosol 3 mg intranasal ONCE Qty: 2 3RF Referrals: Rodrigo Damon MD [Primary Care Provider] - Interventions: ED Discharge Assessment Last Done: 08/28/23 01:58 Discharge Date/Time: 08/28/23 01:45 Print Language: Ma[place]
[2023-08-28] MEDS: guaiFEN/Codeine SF 200/20/10ML 10 ML LIQUID 5 ML PO (01:41)
== END 2023-08-28 01:45 | disposition home or self-care (01) ==
PROVIDERS: Emergency Provider Student in an Organized Health Care Education/Training Program; PCP Internal Medicine
DX: J22 Unspecified acute lower respiratory infection (principal); B97.4 Respiratory syncytial virus as the cause of diseases classified elsewhere; R05.9 Cough, unspecified
CPT/HCPCS: 99283; 99284

== ENCOUNTER → 2023-08-27 18:40 | Outpatient (BNV) | payer OTHER, SELFPAY | PROVIDERS: Visit Provider Internal Medicine | DX: R94.31 Abnormal electrocardiogram [ECG] [EKG] (principal) | CPT/HCPCS: 93010 ==

== ENCOUNTER 2023-11-16 08:34 | Outpatient (REF) | payer OTHER, SELFPAY ==
[2023-11-16 08:55] LABS: MANUAL DIFF FLAG NO
[2023-11-16 09:13] LABS: Basophils Percent Auto 0.4 % (0-2); Eosinophils Absolute Auto 0.2 X10*3/uL (0.0-0.4); Eosinophils Percent Auto 2.1 % (0-4); Hematocrit 39.1 % (37.0-47.0); Hemoglobin 12.4 g/dl (12.0-16.0); Imm Gran Abs Auto 0.02 X10*3/uL (0.00-0.03); Imm Gran Pct Auto 0.2 % (0.0-0.4); Lymphocytes Absolute Auto 3.1 X10*3/uL (1.2-4.9); Lymphocytes Percent Auto 34.9 % (20-40); Mean Corpuscular HGB Conc 31.7 g/dl (31.0-35.0); Mean Corpuscular Hemoglobin 28.6 pg (27.0-33.0); Mean Corpuscular Volume 90.3 fL (80.0-98.0); Mean Platelet Volume 11.4 fL (9.4-12.3); Monocytes Absolute Auto 0.5 X10*3/uL (0.1-1.2); Neutrophils Percent Auto 56.4 % (45-73); Platelet Count 242 X10*3/uL (160-400); Red Blood Count 4.33 X10*6/uL (4.20-5.50); Red Cell Distribution Width 15.4 % (11.0-16.0); White Blood Count 8.9 X10*3/uL (4.8-10.8)
[2023-11-16 09:23] LABS: Estimated Average Glucose 189 mg/dL; Hemoglobin A1c % 8.2 % (<6.0)
[2023-11-16 09:56] LABS: Alanine Aminotransferase 11 U/L (0-31); Alkaline Phosphatase 70 U/L (39-117); Anion Gap 11 (12-20); Aspartate Amino Transferase 16 U/L (5-31); Bilirubin Total 0.3 mg/dL (0.0-1.0); Blood Urea Nitrogen 17 mg/dL (9-16); Calcium 9.5 mg/dL (8.4-10.2); Carbon Dioxide 29 mmol/L (22-29); Chloride 106 mmol/L (96-108); Cholesterol 131 mg/dL (<200); Estimated Glomerular Filt Rate > 60; Glucose Fasting 118 mg/dL (60-99); HDL Cholesterol 43 mg/dL (>40); LDL Cholesterol Calculated 63 mg/dL (<100); Potassium 4.5 mmol/L (3.3-5.1); Sodium 141 mmol/L (135-145); Total Protein 7.3 g/dL (6.5-8.0); Triglycerides 125 mg/dL (<150)
[2023-11-16 09:59] LABS: Appearance Urine Cloudy; Color Urine Yellow; Glucose Urine UA Negative (Negative); Leukocyte Esterase Urine Moderate (2+) (Negative); Nitrite Urine Positive (Negative); PH 6.5 (5.0-9.0); UMIC TRIGGER UACC YES; Urine Blood Negative (Negative); Urine Ketones Trace mg/dL (Negative); Urine Protein Negative (Neg-Trace)
[2023-11-16 10:03] LABS: Bacteria Urine 4+ (None Seen); Hyaline Casts Urine 0-2 /LPF (0-2); RBC Urine 0-2 /HPF (0-2); UACC Culture Trigger YES; WBC Urine 21-50 /HPF (0-5)
[2023-11-16 10:04] LABS: TSH reflex Free T4 0.98 uIU/mL (0.32-4.0)
[2023-11-16 11:31] LABS: Microalbum/Creatinine Ratio Ur 12.8 ug/mg cr (<30)
== END 2023-11-16 08:35 | disposition home or self-care (01) ==
LOC: HO.LAB 08:34
PROVIDERS: PCP Internal Medicine; Visit Provider Internal Medicine
DX: E78.00 Pure hypercholesterolemia, unspecified (principal); E11.9 Type 2 diabetes mellitus without complications; I10 Essential (primary) hypertension; R30.0 Dysuria
CPT/HCPCS: 36415; 80053; 80061; 81001; 81003; 82043; 82570; 83036; 84443; 85025; 87086; 87088; 87186

== ENCOUNTER 2023-11-25 12:48 | Outpatient (AMB) | payer OTHER, SELFPAY ==
[2023-11-25 12:50] VITALS: BP 118/62; PULSE 85; O2SAT 96; BMI 36.6
--- NOTE | 2023-11-25 12:50 | MHC.PC.OV ---
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 Accompanied by: Self / Same As Patient Allergies No Known Allergies Allergy (Verified 11/25/23 13:36) Medication List - Last Reconciled 11/25/23 by Rodrigo Damon MD atorvastatin 20 mg PO DAILY 90 days benzonatate 200 mg PO TID PRN blood sugar diagnostic (FreeStyle Lite Strips) As directed once a day blood-glucose meter (FreeStyle Lite Meter kit) As directed cyclobenzaprine 5 mg PO TID PRN 10 days diclofenac sodium 1% 2 grams topical QID PRN dorzolamide-timolol 22.3-6.8 mg/mL 1 drp ophthalmic (eye) BID enalapril maleate 10 mg PO DAILY 90 days flash glucose scanning reader ([employer]ana SystemsStyle Terri 2 [place]) As directed flash glucose sensor (FreeStyle Terri 2 Sensor kit) As directed change every 14 days gabapentin 100 mg PO BID 30 days glucagon 3 mg/actuation (Baqsimi) 3 mg intranasal ONCE ibuprofen 600 mg PO Q8H PRN insulin aspart U-100 12 to 15 units 3 times a day with meals per sliding scale subcut; insulin degludec 30 units (0.3 mL) subcut BEDTIME 30 days insulin syr/ndl U100 half geoffrey (BD Insulin Syringe Ultra-Fine (half unit)) Use 4 times daily ketorolac 0.5% 0 drps ophthalmic (eye) lancets (FreeStyle Lancets) As directed once a day latanoprost 0.005% 0 drps ophthalmic (eye) metformin 500 mg PO BID netarsudil 0.02% (Rhopressa) 1 drp ophthalmic-Right BEDTIME omeprazole 40 mg PO DAILY 90 days oxybutynin chloride ER 5 mg PO DAILY 90 days pen needle, diabetic (BD Ultra-Fine Mini Pen Needle) Use as directed once a day with Tresiba semaglutide (Ozempic) 0.25 mg (0.368 mL) subcut QWEEK 12 weeks sennosides (senna) 8.6 mg PO BEDTIME PRN 30 days Tobacco use date assessed: 11/25/23 Fall risk assessment: No Falls in past year Dental Screening Dental Screen Date: 11/25/23 Did you have a dental visit in the last 12 months?: No Did you have a dental problem in the last 6 months where you did not have access to dental care?: No Was dental information given to patient?: No HPI DM HPI Details Patient comes in today for her follow up visit States that she feels okay She denies any headaches or dizziness Denies any chest pains, no SOB No nausea/vomiting, no abdominal pain No change in bowel habits noted Needs her Ozempic Rx refilled Had her follow up labs done last week - to discuss her results [facility] Medical History Hyperparathyroidism Constipation Obesity (BMI 30-39.9) Overactive bladder GERD without esophagitis Pure hypercholesterolemia Benign essential hypertension Diabetes mellitus Surgical History Status post parathyroidectomy (~09/02/22) Hx of section Status post excision of lipoma Family History Mother Diabetes mellitus Hypertension Father Hypertension Cancer Other Substance abuse Social History Housing: Apartment Alcohol intake: never Patient Tobacco Use Status: Never used Tobacco e-Cigarette/Vaping Use: Never Used Second Hand Smoke Exposure: No service: No Current occupational status: disabled Cognitive needs: Yes (walker) Hearing needs: No Vision needs: Yes Questionnaire PHQ-9 Over the last 2 weeks, how often have you been bothered by any of the following problems? 1. Little interest or pleasure in doing things: not at all 2. Feeling down, depressed, or hopeless: not at all 3. Trouble falling or staying asleep, or sleeping too much: not at all 4. Feeling tired or having little energy: not at all 5. Poor appetite or overeating: not at all 6. Feeling bad about yourself - or that you are a failure or have let yourself or your family down: not at all 7. Trouble concentrating on things, such as reading the newspaper or watching television: not at all 8. Moving or speaking so slowly that other people could have noticed. Or the opposite - being so fidgety or restless that you have been moving around a lot more than usual: not at all 9. Thoughts that you would be better off or of hurting yourself in some way: not at all Total score: 0 Depression Screening Interpretation: Negative Depression Screening Done: Yes 44461 - PHQ-9 Billing: Yes Source: Developed by Drs. Gerber Vee, Rocio Ross, Roland Henriquez and colleagues, with an educational víctor from [employer]. Thrive Questionnaire Date Thrive assessed: 11/25/23 I am a: Patient What is your living situation today?: I have a steady place to live Within the past 12 months, did the food you bought not last and you didn't have the money to get more?: Never true Within the past 12 months, did you worry whether your food would run out before you got money to buy more?: Never true Do you have trouble paying for medicines?: No Do you have trouble getting transportation to medical appointments?: No Do you have trouble paying your heating and electricity bill?: No Do you have trouble taking care of your child, family member or friend?: No Do you have trouble with day-to-day activities such as bathing, preparing meals, shopping, managing finances, etc.?: No Are you currently unemployed and looking for a job?: No Are you interested in more education?: No Please select the resources that you would like help with: None Currently or been in a relationship where the following occur: no concerns reported THRIVE Score: 0 AUDIT C Alcohol Use Questionnaire (AUDIT-C) 1. How often do you have a drink containing alcohol?: Never 3. How often do you have six or more drinks on one occasion?: Never Total Score: 0 Score Reviewed/Action Taken: Yes MOLLY-7 AMB Questionnaire MOLLY-7 Date MOLLY - 7 assessed: 11/25/23 Feeling nervous, anxious, or on edge: 0 = Not at all Not being able to stop or control worryin = Not at all Worrying too much about different things: 0 = Not at all Trouble relaxin = Not at all Being so restless that it is hard to sit still: 0 = Not at all Becoming easily annoyed or irritable: 0 = Not at all Feeling afraid as if something awful might happen: 0 = Not at all Total MOLLY-7 score (0-4 normal; 5-9 mild; 10-14 moderate; 15-21 severe): 0 Source: Developed by Drs. Gerber Vee, Rocio Ross, Roland Henriquez and colleagues, with an educational víctor from [employer]. Review of Systems Const Reports difficulty sleeping (at times), Reports fatigue, Denies fever(s) and Denies headache(s) ENT Denies dysphagia, Denies dizziness, Denies otalgia, Denies headache(s), Denies neck pain, Denies odynophagia and Denies sore throat Card Denies chest pain, Denies palpitations and Denies dyspnea Resp Denies chest congestion, Denies cough and Denies dyspnea GI Denies abdominal pain, Reports constipation (on and off), Denies dysphagia, Denies heartburn, Denies diarrhea, Denies nausea, Denies odynophagia and Denies vomiting Denies difficulty voiding, Denies nocturia, Denies dysuria and Denies urinary urgency Musc Reports back pain (over the lower back), Reports arthralgias (involving multiple joints - include hips and knees) and Denies neck pain Skin/Breast Denies rash Neuro Denies dizziness and Denies headache(s) Endo Reports fatigue and Denies palpitations Physical exam (Primary Care) Vital Signs: Last Vital Signs Pulse 85 11/25/23 12:50 BP 118/62 11/25/23 12:50 Pulse Ox 96 11/25/23 12:50 Oxygen Delivery Method Room Air 11/25/23 12:50 BMI result Body Mass Index 36.6 Tobacco/Smoking Status: Tobacco use Status Tobacco use date assessed 11/25/23 11/25/23 12:51 Patient Tobacco Use Status Never used Tobacco 11/25/23 12:51 e-Cigarette/Vaping Use Never Used 11/25/23 12:51 PHQ-9: PHQ-9 Score PHQ-9: Total score 0 11/25/23 13:39 Depression Screening Interpretation: Negative Thrive Assessment: Date of Thrive Assessment Date Thrive assessed 11/25/23 11/25/23 12:51 Currently or been in a relationship where the following occur: no concerns reported Const General: no acute distress and alert HENMT Ears: TM's normal bilaterally and EAC's normal Throat: Yes posterior oropharynx normal and Yes tonsils normal (no TP congestion noted) Neck Neck: Yes no lymphadenopathy and Yes supple Thyroid: Thyroid normal Resp Auscultation: clear to auscultation bilaterally, no rales and no wheezes Cardio Rate: regular rate Rhythm: regular rhythm Heart sounds: no murmurs GI Palpation (GI): Soft to palpation and nontender Auscultation: normal bowel sounds Back/Spine/Pelvis Thoracic/Lumbar Spine: lumbar spinal tenderness Skin Rashes: no rashes Extrem General: Yes no clubbing, cyanosis or edema Right lower extremity: hip/thigh Details: tenderness Location: of the hip and knee Details: tenderness; no swelling Left lower extremity: hip/thigh Details: tenderness Location: of the hip and knee Details: tenderness; no swelling Results Reviewed Results Reviewed: Laboratory Tests 11/16/23 11/16/23 08:47 08:51 WBC 8.9 Hgb 12.4 Hct 39.1 Plt Count 242 Sodium 141 Potassium 4.5 Creatinine 0.86 Estimated GFR > 60 Fasting Glucose 118 H Hemoglobin A1c % 8.2 H Calcium 9.5 D AST 16 ALT 11 Triglycerides 125 Cholesterol 131 LDL Cholesterol, Calc 63 HDL Cholesterol 43 TSH 0.98 Ur Specific [place] 1.020 Urine Protein Negative Urine Glucose (UA) Negative Urine Blood Negative Urine Nitrite Positive H Ur Leukocyte Esterase Moderate (2+) H Microalb/Creat Ratio 12.8 Assessment and Plan Assessment & Plan (1) Diabetes mellitus: Code(s): E11.9 - Type 2 diabetes mellitus without complications Qualifiers: Diabetes mellitus type: type 2 Diabetes mellitus joint terminal attack controller insulin use: with joint terminal attack controller use Diabetes mellitus complication status: without complication Qualified Code(s): E11.9 - Type 2 diabetes mellitus without complications; Z79.4 - local company intermodal truck driver (current) use of insulin Plan: Her HgbA1c has improved to 8.2% on her labs done last week (was at 9.6% a few months ago) - goal is at least 7.5% or less Reinforced diabetic diet She was previously seeing an senior cost estimator based in [place] (patient does not remember doctor's name) but is now seeing Dr. Vu here at [facility] [place] Continue Metformin 500 mg BID, Tresiba 30 units Q HS and Humalog 12 to 15 units 3 times a day with meals per sliding scale Continue Ozempic at 0.25 mg SQ once a week (Rx refilled) - states that she is tolerating this with no problems since we switched her over from Trulicity at her last visit (2) Pure hypercholesterolemia: Code(s): E78.00 - Pure hypercholesterolemia, unspecified Plan: Results of her labs done last week reviewed and discussed with patient Reinforced low cholesterol diet Continue Atorvastatin 20 mg QD Will recheck her labs and fasting lipids in 3 months for follow up (3) Benign essential hypertension: Code(s): I10 - Essential (primary) hypertension Plan: Reinforced low sodium diet - goal is systolic BP of at least 140 to 150 mm or less Continue Enalapril 10 mg QD (4) Hyperparathyroidism: Code(s): E21.3 - Hyperparathyroidism, unspecified Plan: S/P parathyroidectomy with Dr. Ferrera in [place] on 09/02/2022 Was reportedly advised by Dr. Ferrera that he will just need to see her for follow up on an as needed basis and for her to just continue seeing her senior cost estimator and PCP regularly from now on for routine surveillance/follow up (5) GERD without esophagitis: Code(s): K21.9 - Gastro-esophageal reflux disease without esophagitis Plan: Dietary restrictions reinforced Continue Omeprazole 40 mg QD (6) Constipation: Code(s): K59.00 - Constipation, unspecified Qualifiers: Constipation type: unspecified constipation type Qualified Code(s): K59.00 - Constipation, unspecified Plan: Reinforced increased oral fluids and dietary fiber Was taking Miralax 17 gm QD in the past but stopped taking it a few months ago as she was throwing up every time she takes the Rx Continue Senna 8.6 mg QD PRN (7) Overactive bladder: Code(s): N32.81 - Overactive bladder Plan: Continue Oxybutynin ER 5 mg QD States that she is still getting up to go to the bathroom about 4 times a night Will consider increasing Rx dosage if her symptoms persist/progress (8) Arthralgia: Code(s): M25.50 - Pain in unspecified joint Qualifiers: Joint pain location: unspecified Qualified Code(s): M25.50 - Pain in unspecified joint Plan: Continue topical Diclofenac 1% gel to apply to affected/painful areas QID PRN and Gabapentin 100 mg BID (9) Obesity (BMI 30-39.9): Code(s): E66.9 - Obesity, unspecified Plan: Reinforced diet; exercise and weight loss may be unrealistic due to patient's age and physical limitations Plan Follow up in 3 months Orders: Orders Hemoglobin A1c 3 Months E11.9 - Type 2 diabetes mellitus without complications Complete Blood Count Auto Diff 3 Months D64.9 - Anemia, unspecified Comprehensive Outing. Panel Fast 3 Months E78.00 - Pure hypercholesterolemia, unspecified UA CC w/rflx Micro + Cult 3 Months R30.0 - Dysuria Vitamin D 25-OH Total 3 Months E55.9 - Vitamin D deficiency, unspecified Lipid Panel 3 Months E78.00 - Pure hypercholesterolemia, unspecified TSH reflex Free T4 3 Months E78.00 - Pure hypercholesterolemia, unspecified Medications: Refilled semaglutide (Ozempic) 0.25 mg (0.368 mL) subcut QWEEK 12 weeks 4.416 mL 1RF Coding Level of Care Code Est Pt Level 4 (45267) Diagnoses Type 2 diabetes mellitus without complication, with long-term current use of insulin E11.9; Z79.4 Diabetes mellitus type: type 2 Diabetes mellitus half-way insulin use: with joint terminal attack controller use Diabetes mellitus complication status: without complication Pure hypercholesterolemia E78.00 Benign essential hypertension I10 Hyperparathyroidism E21.3 GERD without esophagitis K21.9 Constipation, unspecified constipation type K59.00 Constipation type: unspecified constipation type Overactive bladder N32.81 Arthralgia, unspecified joint M25.50 Joint pain location: unspecified Obesity (BMI 30-39.9) E66.9
== END 2023-11-25 13:47 | disposition home or self-care (01) ==
PROVIDERS: PCP Internal Medicine; Visit Provider Internal Medicine
DX: E11.9 Type 2 diabetes mellitus without complications (principal); Z79.4 Long term (current) use of insulin; E21.3 Hyperparathyroidism, unspecified; E78.00 Pure hypercholesterolemia, unspecified; I10 Essential (primary) hypertension; K21.9 Gastro-esophageal reflux disease without esophagitis; K59.00 Constipation, unspecified; N32.81 Overactive bladder; M25.50 Pain in unspecified joint; E66.9 Obesity, unspecified
CPT/HCPCS: 99214

== ENCOUNTER 2024-03-04 08:23 | Outpatient (REF) | payer OTHER, SELFPAY ==
[2024-03-04 08:59] LABS: MANUAL DIFF FLAG NO
[2024-03-04 09:46] LABS: Basophils Absolute Auto 0.1 X10*3/uL (0.0-0.2); Basophils Percent Auto 0.5 % (0-2); Eosinophils Absolute Auto 0.3 X10*3/uL (0.0-0.4); Eosinophils Percent Auto 2.7 % (0-4); Hemoglobin 11.7 g/dl (12.0-16.0); Imm Gran Abs Auto 0.03 X10*3/uL (0.00-0.03); Imm Gran Pct Auto 0.3 % (0.0-0.4); Lymphocytes Absolute Auto 2.9 X10*3/uL (1.2-4.9); Lymphocytes Percent Auto 31.4 % (20-40); Mean Corpuscular HGB Conc 31.6 g/dl (31.0-35.0); Mean Corpuscular Volume 91.6 fL (80.0-98.0); Mean Platelet Volume 11.7 fL (9.4-12.3); Monocytes Absolute Auto 0.5 X10*3/uL (0.1-1.2); Monocytes Percent Auto 5.1 % (2-11); Neutrophils Absolute Auto 5.5 x10*3/uL (2.0-8.3); Platelet Count 237 X10*3/uL (160-400); Red Blood Count 4.04 X10*6/uL (4.20-5.50); Red Cell Distribution Width 15.7 % (11.0-16.0); White Blood Count 9.2 X10*3/uL (4.8-10.8)
[2024-03-04 09:51] LABS: Estimated Average Glucose 235 mg/dL; Hemoglobin A1c % 9.8 % (<6.0)
[2024-03-04 10:19] LABS: Alanine Aminotransferase 11 U/L (0-31); Albumin Level 3.8 g/dL (3.5-5.0); Alkaline Phosphatase 70 U/L (39-117); Anion Gap 11 (12-20); Aspartate Amino Transferase 13 U/L (5-31); Bilirubin Total 0.3 mg/dL (0.0-1.0); Blood Urea Nitrogen 17 mg/dL (9-16); Calcium 9.2 mg/dL (8.4-10.2); Carbon Dioxide 28 mmol/L (22-29); Chloride 105 mmol/L (96-108); Cholesterol 131 mg/dL (<200); Estimated Glomerular Filt Rate > 60; Glucose Fasting 165 mg/dL (60-99); HDL Cholesterol 44 mg/dL (>40); LDL Cholesterol Calculated 65 mg/dL (<100); Potassium 4.3 mmol/L (3.3-5.1); Sodium 140 mmol/L (135-145); Triglycerides 111 mg/dL (<150)
[2024-03-04 10:22] LABS: Appearance Urine Cloudy; Color Urine Yellow; Glucose Urine UA Negative (Negative); Leukocyte Esterase Urine Large (3+) (Negative); Nitrite Urine Negative (Negative); PH 5.5 (5.0-9.0); UMIC TRIGGER UACC YES; Urine Blood Negative (Negative); Urine Ketones Trace mg/dL (Negative); Urine Protein Negative (Neg-Trace)
[2024-03-04 10:32] LABS: Bacteria Urine 4+ (None Seen); Hyaline Casts Urine 0-2 /LPF (0-2); RBC Urine 0-2 /HPF (0-2); UACC Culture Trigger YES; WBC Urine 21-50 /HPF (0-5)
[2024-03-04 10:35] LABS: TSH reflex Free T4 0.78 uIU/mL (0.32-4.0); Vitamin D 25-OH Total 52.8 ng/mL (>30)
== END 2024-03-04 08:24 | disposition home or self-care (01) ==
LOC: HO.LAB 08:23
PROVIDERS: PCP Internal Medicine; Visit Provider Internal Medicine
DX: E11.9 Type 2 diabetes mellitus without complications (principal); E55.9 Vitamin D deficiency, unspecified; E78.00 Pure hypercholesterolemia, unspecified; D64.9 Anemia, unspecified; R30.0 Dysuria
CPT/HCPCS: 36415; 80053; 80061; 81001; 81003; 82306; 83036; 84443; 85025; 87086; 87088; 87186

== ENCOUNTER 2024-03-11 11:50 | Outpatient (AMB) | payer OTHER, SELFPAY ==
[2024-03-11 12:34] VITALS: BP 108/56; PULSE 79; O2SAT 95; BMI 36.2
--- NOTE | 2024-03-11 12:34 | A.OFFPC_ITS ---
Vital Signs 03/11/24 12:34 Height 4 ft 11 in Weight 179 lb 3.773 oz BMI 36.2 BP 108/56 L Blood Pressure Location Lt brachial Position Sitting Pulse 79 Pulse Source Pulse Oximeter Pulse Oximetry (%) 95 Oxygen Delivery Method Room Air Intake Visit Reasons: DM Orthodontic Lab Technician Required: No Allergies No Known Allergies Allergy (Verified 03/11/24 12:52) Medication List - Last Reconciled 03/11/24 by Rodrigo Damon MD atorvastatin 20 mg PO DAILY 90 days benzonatate 200 mg PO TID PRN blood sugar diagnostic (FreeStyle Lite Strips) As directed once a day blood-glucose meter (FreeStyle Lite Meter kit) As directed cyclobenzaprine 5 mg PO TID PRN 10 days diclofenac sodium 1% 2 grams topical QID PRN dorzolamide-timolol 22.3-6.8 mg/mL 1 drp ophthalmic (eye) BID enalapril maleate 10 mg PO DAILY 90 days flash glucose scanning reader ([place] Terri 2 Fritch) As directed flash glucose sensor (FreeStyle Terri 2 Sensor kit) As directed change every 14 days gabapentin 100 mg PO BID 30 days glucagon 3 mg/actuation (Baqsimi) 3 mg intranasal ONCE ibuprofen 600 mg PO Q8H PRN incontinence pad, liner, disp To be changed 6 to 8 times a day insulin aspart U-100 12 to 15 units 3 times a day with meals per sliding scale subcut; insulin degludec (Tresiba FlexTouch U-100 insulin) 30 units (0.3 mL) subcut BEDTIME insulin syr/ndl U100 half geoffrey (BD Insulin Syringe Ultra-Fine (half unit)) Use 4 times daily ketorolac 0.5% 0 drps ophthalmic (eye) lancets (FreeStyle Lancets) As directed once a day latanoprost 0.005% 0 drps ophthalmic (eye) metformin 500 mg PO BID netarsudil 0.02% (Rhopressa) 1 drp ophthalmic-Right BEDTIME omeprazole 40 mg PO DAILY 90 days oxybutynin chloride ER 5 mg PO DAILY 90 days pen needle, diabetic (BD Ultra-Fine Mini Pen Needle) Use as directed once a day with Tresiba semaglutide (Ozempic) 0.25 mg (0.368 mL) subcut QWEEK 12 weeks sennosides (senna) 8.6 mg PO BEDTIME PRN 30 days [wipes As directed] Tobacco use date assessed: 11/25/23 Fall risk assessment: No Falls in past year Last assessed Fall Risk: 03/11/24 Dental Screening Dental Screen Date: 11/25/23 HPI DM HPI Details Patient comes in today for her follow up visit States that she feels okay except for increasing anxiety lately Per her daughter, they are currently in the process of moving to a different apartment complex and is not sure if this is what is triggering her anxiety States that her mother has been having trouble sleeping at night lately due to her increasing anxiety and they would like for her to get something to help with these issues Patient denies any headaches or dizziness Denies any chest pains, no SOB No nausea/vomiting, no abdominal pain No change in bowel habits noted She has her follow up labs done last week - to discuss her results [facility] Medical History Hyperparathyroidism Constipation Obesity (BMI 30-39.9) Overactive bladder GERD without esophagitis Pure hypercholesterolemia Benign essential hypertension Diabetes mellitus Surgical History Status post parathyroidectomy (~09/02/22) Hx of section Status post excision of lipoma Family History Mother Diabetes mellitus Hypertension Father Hypertension Cancer Other Substance abuse Social History Housing: Apartment Alcohol intake: never Patient Tobacco Use Status: Never used Tobacco e-Cigarette/Vaping Use: Never Used Second Hand Smoke Exposure: No service: No Current occupational status: disabled Cognitive needs: Yes (walker) Hearing needs: No Vision needs: Yes Questionnaire Thrive Questionnaire Date Thrive assessed: 11/25/23 I am a: Patient What is your living situation today?: I have a steady place to live Within the past 12 months, did the food you bought not last and you didn't have the money to get more?: Never true Within the past 12 months, did you worry whether your food would run out before you got money to buy more?: Never true Do you have trouble paying for medicines?: No Do you have trouble getting transportation to medical appointments?: No Do you have trouble paying your heating and electricity bill?: No Do you have trouble taking care of your child, family member or friend?: No Do you have trouble with day-to-day activities such as bathing, preparing meals, shopping, managing finances, etc.?: No Are you currently unemployed and looking for a job?: No Are you interested in more education?: No Please select the resources that you would like help with: None Currently or been in a relationship where the following occur: no concerns reported THRIVE Score: 0 AUDIT C Alcohol Use Questionnaire (AUDIT-C) 1. How often do you have a drink containing alcohol?: Never 3. How often do you have six or more drinks on one occasion?: Never Total Score: 0 Score Reviewed/Action Taken: Yes MOLLY-7 AMB Questionnaire MOLLY-7 Date MOLLY - 7 assessed: 11/25/23 Source: Developed by Drs. Gerber Vee, Rocio Ross, Roland Henriquez and colleagues, with an educational víctor from [employer]. Review of Systems Const Reports difficulty sleeping (increasing lately), Reports fatigue, Denies fever(s) and Denies headache(s) ENT Denies dysphagia, Denies dizziness, Denies otalgia, Denies headache(s), Denies neck pain, Denies odynophagia and Denies sore throat Card Denies chest pain, Denies palpitations and Denies dyspnea Resp Denies chest congestion, Denies cough and Denies dyspnea GI Denies abdominal pain, Reports constipation (on and off), Denies dysphagia, Denies heartburn, Denies diarrhea, Denies nausea, Denies odynophagia and Denies vomiting Denies difficulty voiding, Denies nocturia, Denies dysuria and Denies urinary urgency Musc Reports back pain (over the lower back), Reports arthralgias (involving multiple joints - include hips and knees) and Denies neck pain Skin/Breast Denies rash Neuro Denies dizziness and Denies headache(s) Psych Reports anxiety (increasing lately) Endo Reports fatigue and Denies palpitations Physical exam (Primary Care) Vital Signs: Last Vital Signs Pulse 79 03/11/24 12:34 BP 108/56 L 03/11/24 12:34 Pulse Ox 95 03/11/24 12:34 Oxygen Delivery Method Room Air 03/11/24 12:34 BMI result Body Mass Index 36.2 Tobacco/Smoking Status: Tobacco use Status Tobacco use date assessed 11/25/23 03/11/24 12:35 Patient Tobacco Use Status Never used Tobacco 03/11/24 12:35 e-Cigarette/Vaping Use Never Used 03/11/24 12:35 Thrive Assessment: Date of Thrive Assessment Date Thrive assessed 11/25/23 03/11/24 12:35 Currently or been in a relationship where the following occur: no concerns reported Const General: no acute distress and alert HENMT Throat: Yes posterior oropharynx normal and Yes tonsils normal (no TP congestion noted) Neck Neck: Yes no lymphadenopathy and Yes supple Thyroid: Thyroid normal Resp Auscultation: clear to auscultation bilaterally, no rales and no wheezes Cardio Rate: regular rate Rhythm: regular rhythm Heart sounds: no murmurs GI Palpation (GI): Soft to palpation and nontender Auscultation: normal bowel sounds Back/Spine/Pelvis Thoracic/Lumbar Spine: lumbar spinal tenderness Skin Rashes: no rashes Extrem General: Yes no clubbing, cyanosis or edema Right lower extremity: hip/thigh Details: tenderness Location: of the hip and knee Details: tenderness; no swelling Left lower extremity: hip/thigh Details: tenderness Location: of the hip and knee Details: tenderness; no swelling Results Reviewed Results Reviewed: Laboratory Tests 03/04/24 03/04/24 08:52 08:58 WBC 9.2 Hgb 11.7 L Hct 37.0 Plt Count 237 Sodium 140 Potassium 4.3 Creatinine 0.76 Estimated GFR > 60 Fasting Glucose 165 H Hemoglobin A1c % 9.8 H Calcium 9.2 AST 13 ALT 11 Triglycerides 111 Cholesterol 131 LDL Cholesterol, Calc 65 HDL Cholesterol 44 25-OH Vitamin D Total 52.8 TSH 0.78 Ur Specific [place] 1.020 Urine Protein Negative Urine Glucose (UA) Negative Urine Blood Negative Urine Nitrite Negative Ur Leukocyte Esterase Large (3+) H Assessment and Plan Assessment & Plan (1) Diabetes mellitus: Code(s): E11.9 - Type 2 diabetes mellitus without complications Qualifiers: Diabetes mellitus type: type 2 Diabetes mellitus jail insulin use: with jail use Diabetes mellitus complication status: without complication Qualified Code(s): E11.9 - Type 2 diabetes mellitus without complications; Z79.4 - long term (current) use of insulin Plan: Her HgbA1c has increased to 9.8% on her labs done last week (was at 8.2% a few months ago) - goal is at least 7.5% or less Reinforced diabetic diet - patient's daughter admits that patient has not been compliant with her diet lately States that they are currently in the process of moving to a different apartment and has been eating a lot of fast foods lately She was previously seeing an slide fasteners inspector based in [place] (patient does not remember doctor's name) but is now seeing Dr. Vu here at [facility] Continue Metformin 500 mg BID, Tresiba 30 units Q HS, Humalog 12 to 15 units 3 times a day with meals per sliding scale and Ozempic at 0.25 mg SQ once a week Patient is requesting to be switched from Metformin to Jardiance Have advised her that as she has an upcoming appointment with Dr. Vu in a couple of weeks (03/31/2024) for endocrinology follow up, I will leave it up to Dr. Vu to determine which medications she should best be on for her diabetes - have reminded her about this appointment and that she should keep this (2) Pure hypercholesterolemia: Code(s): E78.00 - Pure hypercholesterolemia, unspecified Plan: Results of her labs done last week reviewed and discussed with patient Reinforced low cholesterol diet Continue Atorvastatin 20 mg QD Will recheck her labs and fasting lipids in 3 months for follow up (3) Benign essential hypertension: Code(s): I10 - Essential (primary) hypertension Plan: Reinforced low sodium diet - goal is systolic BP of at least 140 to 150 mm or less Continue Enalapril 10 mg QD (4) Hyperparathyroidism: Code(s): E21.3 - Hyperparathyroidism, unspecified Plan: S/P parathyroidectomy with Dr. Ferrera in [place] on 09/02/2022 Was reportedly advised by Dr. Ferrera that he will just need to see her for follow up on an as needed basis and for her to just continue seeing her slide fasteners inspector and PCP regularly from now on for routine surveillance/follow up (5) GERD without esophagitis: Code(s): K21.9 - Gastro-esophageal reflux disease without esophagitis Plan: Dietary restrictions reinforced Continue Omeprazole 40 mg QD (6) Constipation: Code(s): K59.00 - Constipation, unspecified Qualifiers: Constipation type: unspecified constipation type Qualified Code(s): K59.00 - Constipation, unspecified Plan: Reinforced increased oral fluids and dietary fiber Was taking Miralax 17 gm QD in the past but stopped taking it a few months ago as she was throwing up every time she takes the Rx Continue Senna 8.6 mg QD PRN (7) Overactive bladder: Code(s): N32.81 - Overactive bladder Plan: Continue Oxybutynin ER 5 mg QD States that she is still getting up to go to the bathroom about 4 times a night Will consider increasing Rx dosage if her symptoms persist/progress (8) Arthralgia: Code(s): M25.50 - Pain in unspecified joint Qualifiers: Joint pain location: unspecified Qualified Code(s): M25.50 - Pain in unspecified joint Plan: Continue topical Diclofenac 1% gel to apply to affected/painful areas QID PRN and Gabapentin 100 mg BID (9) Insomnia: Code(s): G47.00 - Insomnia, unspecified Qualifiers: Insomnia type: unspecified Qualified Code(s): G47.00 - Insomnia, unspecified Plan: This appears to be mostly due to her increasing anxiety lately and may resolve once her anxiety is better controlled Will start patient for now on Triazolam 0.125 mg Q HS PRN (10) Anxiety: Code(s): F41.9 - Anxiety disorder, unspecified Plan: Will start her on Sertraline 25 mg QAM - is advised that this should be taken daily for the Rx to be effecive Discussed that her recent increasing anxiety may be related to her recent move to a different apartment (11) Obesity (BMI 30-39.9): Code(s): E66.9 - Obesity, unspecified Plan: Reinforced diet; exercise and weight loss may be unrealistic due to patient's age and physical limitations Plan Follow up in 3 months Orders: Orders TSH reflex Free T4 3 Months E78.00 - Pure hypercholesterolemia, unspecified UA CC w/rflx Micro + Cult 3 Months R30.0 - Dysuria Vitamin B12 and Folate 3 Months E53.8 - Deficiency of other specified B group vitamins Complete Blood Count Auto Diff 3 Months D64.9 - Anemia, unspecified Comprehensive [place]. Panel Fast 3 Months E78.00 - Pure hypercholesterolemia, unspecified Lipid Panel 3 Months E78.00 - Pure hypercholesterolemia, unspecified Hemoglobin A1c 3 Months E11.9 - Type 2 diabetes mellitus without complications Microalbumin, Random (w Creat) 3 Months E11.9 - Type 2 diabetes mellitus without complications Vitamin D 25-OH Total 3 Months E55.9 - Vitamin D deficiency, unspecified Medications: New sertraline 25 mg PO .Q AM 30 days 30 tabs 3RF triazolam 0.125 mg PO BEDTIME 30 days PRN 30 tabs 0RF sleep Coding Level of Care Code Est Pt Level 4 (31164) Complex EM visit Add On G2211 Diagnoses Type 2 diabetes mellitus without complication, with long-term current use of insulin E11.9; Z79.4 Diabetes mellitus type: type 2 Diabetes mellitus intermediate project manager insulin use: with intermediate project manager use Diabetes mellitus complication status: without complication Pure hypercholesterolemia E78.00 Benign essential hypertension I10 Hyperparathyroidism E21.3 GERD without esophagitis K21.9 Constipation, unspecified constipation type K59.00 Constipation type: unspecified constipation type Overactive bladder N32.81 Arthralgia, unspecified joint M25.50 Joint pain location: unspecified Insomnia, unspecified type G47.00 Insomnia type: unspecified Anxiety F41.9 Obesity (BMI 30-39.9) E66.9
== END 2024-03-11 13:09 | disposition home or self-care (01) ==
PROVIDERS: PCP Internal Medicine; Visit Provider Internal Medicine
DX: E11.9 Type 2 diabetes mellitus without complications (principal); Z79.4 Long term (current) use of insulin; E21.3 Hyperparathyroidism, unspecified; E78.00 Pure hypercholesterolemia, unspecified; I10 Essential (primary) hypertension; K21.9 Gastro-esophageal reflux disease without esophagitis; E66.9 Obesity, unspecified; K59.00 Constipation, unspecified; N32.81 Overactive bladder; M25.50 Pain in unspecified joint; G47.00 Insomnia, unspecified; F41.9 Anxiety disorder, unspecified
CPT/HCPCS: 99214; G2211

== ENCOUNTER 2024-03-31 08:18 | Outpatient (AMB) | payer OTHER, SELFPAY ==
--- NOTE | 2024-03-31 08:49 | A.OFFVIS_ITS ---
Vital Signs 03/31/24 08:55 Height 4 ft 11 in Weight 176 lb 5.917 oz BMI 35.6 BP 114/76 Blood Pressure Location Rt brachial Pulse 76 Pulse Source Pulse Oximeter Intake Visit Reasons: DM2/CONFIRMED Intake Note: Patient presents today to follow up on D2MT. Last Diabetic Eye exam: 01/2024 Last Podiatry Visit: Does not see a Solar Installation Technician Random Glucose: 143mg/dl HgA1c: 9.8% 03/04/24 Allergies No Known Allergies Allergy (Verified 03/11/24 12:52) Medication List - Last Reconciled 03/31/24 by Luana Cardona MD atorvastatin 20 mg PO DAILY 90 days benzonatate 200 mg PO TID PRN blood sugar diagnostic (FreeStyle Lite Strips) As directed once a day blood-glucose meter (FreeStyle Lite Meter kit) As directed cyclobenzaprine 5 mg PO TID PRN 10 days diclofenac sodium 1% 2 grams topical QID PRN dorzolamide-timolol 22.3-6.8 mg/mL 1 drp ophthalmic (eye) BID empagliflozin (Jardiance) 25 mg PO DAILY enalapril maleate 10 mg PO DAILY 90 days flash glucose scanning reader ([place]Style Terri 2 Rogers) As directed flash glucose sensor (FreeStyle Terri 2 Sensor kit) As directed change every 14 days gabapentin 100 mg PO BID 90 days glucagon 3 mg/actuation (Baqsimi) 3 mg intranasal ONCE ibuprofen 600 mg PO Q8H PRN incontinence pad, liner, disp To be changed 6 to 8 times a day insulin degludec (Tresiba FlexTouch U-100 insulin) 30 units (0.3 mL) subcut BEDTIME insulin syr/ndl U100 half geoffrey (BD Insulin Syringe Ultra-Fine (half unit)) Use 4 times daily ketorolac 0.5% 0 drps ophthalmic (eye) lancets (FreeStyle Lancets) As directed once a day latanoprost 0.005% 0 drps ophthalmic (eye) netarsudil 0.02% (Rhopressa) 1 drp ophthalmic-Right BEDTIME omeprazole 40 mg PO DAILY 90 days oxybutynin chloride ER 5 mg PO DAILY 90 days pen needle, diabetic (BD Ultra-Fine Mini Pen Needle) Use as directed once a day with Tresiba semaglutide (Ozempic) 0.5 mg (0.736 mL) subcut QWEEK 12 weeks sennosides (senna) 8.6 mg PO BEDTIME PRN 30 days sertraline 25 mg PO .Q AM 30 days triazolam 0.125 mg PO BEDTIME PRN 30 days [wipes As directed] HPI Comments Details: This is an 83 year old female with a past medical history of IDDM, Initially diagnosed with T2DM ~20 yrs . Saw faith in [facility] long time ago. Saw Dr Vu 04/2023. Was initially started on treatment with .Took Trulicity but changed to Ozempic because of wt gain metformin 500 mg BID -she stopped this due to GI side effects Current regimen Ozempic 0.25 mg Qwkly-taking Tresiba 30 units -taking Novolog- not taking Requesting jardiance Past [id number] but failed effectiveness Patient was prescribed Terri CGM. Did not like it. Checking fasting blood glucose once daily. Last A1C 9.8 last month. No interval med change however has changed diet. Fasting blood glucose for past few weeks has improved to 70s-150. Today 78. Unfortunately, patient did not bring glucometer or log book to visit Treats any low BG with OJ. None under 70. Checks sugar after to ensure it is rising. Checks 2 hr after corrects Family history of T2DM in mother and grandmother . Follows with ophtho, eports exam is UTD. Has retinopathy and getting injections . Mild bilateral foot numbness, no pain. Not seeing podiatry Denies nephropathy, on CANDICE/ARB. Has HLD, on statin. Denies CAD. Has had diabetic education ROS CONSTITUTIONAL: Denies weight loss, fever and chills. HEENT: Denies changes in vision and hearing. RESPIRATORY: Denies SOB and cough. CV: Denies palpitations and CP GI: Denies abdominal pain, nausea, vomiting and diarrhea. : Denies dysuria and urinary frequency. MSK: Denies new myalgia and joint pain. SKIN: Denies rash and pruritus. NEUROLOGICAL: Denies headache PSYCHIATRIC: Denies recent changes in mood. PHYSICAL EXAM: GENERAL: Alert and oriented x 3. NAD EYES: EOMI. Anicteric. HENT: Moist mucous membranes. No scleral icterus. No cervical lymphadenopathy. LUNGS: Clear to auscultation bilaterally. CARDIOVASCULAR: Regular rate and rhythm. No murmur. No JVD. ABDOMEN: Soft, non-tender +bs EXTREMITIES: No edema. Non-tender. SKIN: No rashes or lesions. Warm. NEUROLOGIC: No focal neurological deficits. CN II-XII grossly intact. Normal monofilament. Intact vibratory sense PSYCHIATRIC: Cooperative. Appropriate mood and affect [facility] Medical History Hyperparathyroidism Constipation Obesity (BMI 30-39.9) Overactive bladder GERD without esophagitis Pure hypercholesterolemia Benign essential hypertension Diabetes mellitus Surgical History Status post parathyroidectomy (~09/02/22) Hx of section Status post excision of lipoma Family History Mother Diabetes mellitus Hypertension Father Hypertension Cancer Other Substance abuse Social History Housing: Apartment Alcohol intake: never Patient Tobacco Use Status: Never used Tobacco e-Cigarette/Vaping Use: Never Used Second Hand Smoke Exposure: No service: No Current occupational status: disabled Cognitive needs: Yes (walker) Hearing needs: No Vision needs: Yes Physical Exam Vital Signs: Last Vital Signs Pulse 76 03/31/24 08:55 BP 114/76 03/31/24 08:55 BMI result Body Mass Index 35.6 Results Reviewed Results Reviewed: Laboratory Last Values Glucose (Clinic) 143 mg/dL (60-115) H 03/31/24 09:02 Assessment & Plan Assessment & Plan (1) Diabetes mellitus with hyperglycemia, with long-term current use of insulin: Code(s): E11.65 - Type 2 diabetes mellitus with hyperglycemia; Z79.4 - detention (current) use of insulin Category: Medical Qualifiers: Diabetes mellitus type: type 2 Qualified Code(s): E11.65 - Type 2 diabetes mellitus with hyperglycemia; Z79.4 - termite treater helper (current) use of insulin Plan: Improving control since high A1C of 9.8% last month. She has stopped metformin. Will add jardiance. Discussed measurement to avoid of yeast infections Increase ozempic to 0.5mg weekly Continue current toujeo dose Not taking and declines short acting insulin Return in 3 months for follow up. If frequent hypoglycemia will decrease insulin dosing (2) Benign essential hypertension: Code(s): I10 - Essential (primary) hypertension Category: Medical Plan: Well controlled on current medications Plan 3 month Medications: New empagliflozin (Jardiance) 25 mg PO DAILY 90 tabs 3RF Changed From semaglutide (Ozempic) 0.25 mg (0.368 mL) subcut QWEEK 12 weeks 4.416 mL 1RF To semaglutide (Ozempic) 0.5 mg (0.736 mL) subcut QWEEK 12 weeks 8.832 mL 1RF From gabapentin Take 1 capsule 2 times a day for pain 100 mg PO BID 30 days 60 caps 3RF pain To gabapentin Take 1 capsule 2 times a day for pain 100 mg PO BID 90 days 180 caps 3RF pain Refilled lancets (FreeStyle Lancets) As directed once a day 100 ea 12RF E11.9 - Type 2 diabetes mellitus without complications, Z79.4 - detention (current) use of insulin Discontinued insulin aspart U-100 Discontinued Reason: Doctor's Order 12 to 15 units 3 times a day with meals per sliding scale subcut; 15 mL 3RF metformin Discontinued Reason: Doctor's Order 500 mg PO BID 180 tabs 1RF E11.9 - Type 2 diabetes mellitus without complications, Z79.4 - termite treater helper (current) use of insulin Coding Level of Care Code Est Pt Level 5 (01323) Diagnoses Type 2 diabetes mellitus with hyperglycemia, with long-term current use of insulin E11.65; Z79.4 Diabetes mellitus type: type 2 Benign essential hypertension I10 Time Spent (min) 47
[2024-03-31 08:55] VITALS: BP 114/76; PULSE 76; BMI 35.6
[2024-03-31 09:05] LABS: Glucose, Whole Blood 143 mg/dL (60-115)
== END 2024-03-31 09:35 | disposition home or self-care (01) ==
PROVIDERS: PCP Internal Medicine; Visit Provider Internal Medicine
DX: E11.65 Type 2 diabetes mellitus with hyperglycemia (principal); Z79.4 Long term (current) use of insulin; I10 Essential (primary) hypertension
CPT/HCPCS: 99215

== ENCOUNTER → 2024-03-31 08:18 | Outpatient (BNVA) | payer OTHER, SELFPAY | PROVIDERS: PCP Internal Medicine; Visit Provider Internal Medicine | DX: E11.65 Type 2 diabetes mellitus with hyperglycemia (principal); I10 Essential (primary) hypertension; Z79.4 Long term (current) use of insulin | CPT/HCPCS: 82947; 99212 ==

== ENCOUNTER 2024-06-21 08:07 | Outpatient (REF) | payer OTHER, SELFPAY ==
[2024-06-21 08:29] LABS: MANUAL DIFF FLAG NO
[2024-06-21 08:58] LABS: Appearance Urine Clear; Color Urine Yellow; Glucose Urine UA >=1000 mg/dL (Negative); Leukocyte Esterase Urine Small (1+) (Negative); Nitrite Urine Negative (Negative); PH 5.5 (5.0-9.0); Specific Gravity - Urine 1.025 (1.005-1.025); UMIC TRIGGER UACC YES; Urine Blood Negative (Negative); Urine Ketones Negative (Negative); Urine Protein Negative (Neg-Trace)
[2024-06-21 09:03] LABS: Bacteria Urine 4+ (None Seen); Hyaline Casts Urine 0-2 /LPF (0-2); RBC Urine 0-2 /HPF (0-2); UACC Culture Trigger YES; WBC Urine >50 /HPF (0-5)
[2024-06-21 09:06] LABS: Basophils Absolute Auto 0.1 X10*3/uL (0.0-0.2); Basophils Percent Auto 0.6 % (0-2); Eosinophils Absolute Auto 0.3 X10*3/uL (0.0-0.4); Hematocrit 41.7 % (37.0-47.0); Hemoglobin 12.9 g/dl (12.0-16.0); Imm Gran Abs Auto 0.02 X10*3/uL (0.00-0.03); Imm Gran Pct Auto 0.2 % (0.0-0.4); Lymphocytes Absolute Auto 2.9 X10*3/uL (1.2-4.9); Lymphocytes Percent Auto 29.2 % (20-40); Mean Corpuscular HGB Conc 30.9 g/dl (31.0-35.0); Mean Corpuscular Hemoglobin 27.6 pg (27.0-33.0); Mean Corpuscular Volume 89.1 fL (80.0-98.0); Mean Platelet Volume 11.1 fL (9.4-12.3); Monocytes Absolute Auto 0.5 X10*3/uL (0.1-1.2); Monocytes Percent Auto 4.6 % (2-11); Neutrophils Absolute Auto 6.2 x10*3/uL (2.0-8.3); Neutrophils Percent Auto 62.4 % (45-73); Platelet Count 273 X10*3/uL (160-400); Red Blood Count 4.68 X10*6/uL (4.20-5.50)
[2024-06-21 09:22] LABS: Estimated Average Glucose 212 mg/dL; Hemoglobin A1C 244.3206 umol/L; Total Hemoglobin (HGBA1C) 3271.0749 umol/L
[2024-06-21 09:30] LABS: Creatinine Urine 47.62 mg/dL
[2024-06-21 09:38] LABS: Alanine Aminotransferase 9 U/L (0-31); Albumin Level 3.9 g/dL (3.5-5.0); Alkaline Phosphatase 101 U/L (39-117); Anion Gap 14 (12-20); Aspartate Amino Transferase 11 U/L (5-31); Bilirubin Total 0.3 mg/dL (0.0-1.0); Blood Urea Nitrogen 29 mg/dL (9-16); Calcium 9.5 mg/dL (8.4-10.2); Carbon Dioxide 26 mmol/L (22-29); Chloride 107 mmol/L (96-108); Cholesterol 146 mg/dL (<200); Estimated Glomerular Filt Rate 53; Glucose Fasting 165 mg/dL (60-99); HDL Cholesterol 44 mg/dL (>40); LDL Cholesterol Calculated 83 mg/dL (<100); Potassium 4.2 mmol/L (3.3-5.1); Sodium 143 mmol/L (135-145); Total Protein 7.5 g/dL (6.5-8.0); Triglycerides 98 mg/dL (<150)
[2024-06-21 09:58] LABS: TSH reflex Free T4 1.27 uIU/mL (0.32-4.0); Vitamin D 25-OH Total 66.6 ng/mL (>30)
[2024-06-21 10:06] LABS: Folate 8.6 ng/mL (> or = 4.0); Vitamin B12 > 2000 pg/mL (200-900)
== END 2024-06-21 08:08 | disposition home or self-care (01) ==
LOC: HO.LAB 08:07
PROVIDERS: PCP Internal Medicine; Visit Provider Internal Medicine
DX: E78.00 Pure hypercholesterolemia, unspecified (principal); E11.9 Type 2 diabetes mellitus without complications; E55.9 Vitamin D deficiency, unspecified; E53.8 Deficiency of other specified B group vitamins; D64.9 Anemia, unspecified; R30.0 Dysuria
CPT/HCPCS: 36415; 80053; 80061; 81001; 82043; 82306; 82570; 82607; 82746; 83036; 84443; 85025; 87086

== ENCOUNTER 2024-06-29 12:10 | Outpatient (AMB) | payer OTHER, SELFPAY ==
[2024-06-29 12:32] VITALS: BP 106/62; PULSE 78; O2SAT 95; BMI 34.5
--- NOTE | 2024-06-29 12:32 | MHC.PC.OV ---
Vital Signs 06/29/24 12:32 Height 4 ft 11 in Weight 170 lb 10.205 oz BMI 34.5 BP 106/62 Blood Pressure Location Lt brachial Position Sitting Pulse 78 Pulse Source Pulse Oximeter Pulse Oximetry (%) 95 Oxygen Delivery Method Room Air Intake Visit Reasons: 3mth f/u Venetian Blind Maker Required: No Accompanied by: Self / Same As Patient Allergies No Known Allergies Allergy (Verified 06/29/24 12:56) Medication List - Last Reconciled 06/29/24 by Rodrigo Damon MD atorvastatin 20 mg PO DAILY 90 days benzonatate 200 mg PO TID PRN blood sugar diagnostic (FreeStyle Lite Strips) As directed once a day blood-glucose meter (FreeStyle Lite Meter kit) As directed cyclobenzaprine 5 mg PO TID PRN 10 days diclofenac sodium 1% 2 grams topical QID PRN disposable gloves (Disposable Latex-Free Gloves) As directed dorzolamide-timolol 22.3-6.8 mg/mL 1 drp ophthalmic (eye) BID empagliflozin (Jardiance) 25 mg PO DAILY enalapril maleate 10 mg PO DAILY 90 days flash glucose scanning reader ([employer] Terri 2 [place]) As directed flash glucose sensor (FreeStyle Terri 2 Sensor kit) As directed change every 14 days gabapentin 100 mg PO BID 90 days glucagon 3 mg/actuation (Baqsimi) 3 mg intranasal ONCE ibuprofen 600 mg PO Q8H PRN incontinence pad, liner, disp To be changed 6 to 8 times a day incontinence pad, liner, disp To be changed 6 to 8 times a day incontinence pad, liner, disp (Pads For Women) As directed insulin degludec (Tresiba FlexTouch U-100 insulin) 30 units (0.3 mL) subcut BEDTIME insulin syr/ndl U100 half geoffrey (BD Insulin Syringe Ultra-Fine (half unit)) Use 4 times daily ketorolac 0.5% 0 drps ophthalmic (eye) lancets (FreeStyle Lancets) As directed once a day latanoprost 0.005% 0 drps ophthalmic (eye) netarsudil 0.02% (Rhopressa) 1 drp ophthalmic-Right BEDTIME omeprazole 40 mg PO DAILY 90 days oxybutynin chloride ER 5 mg PO DAILY 90 days pen needle, diabetic (BD Ultra-Fine Mini Pen Needle) Use as directed once a day with Tresiba semaglutide (Ozempic) 0.5 mg (0.736 mL) subcut QWEEK 12 weeks sennosides (senna) 8.6 mg PO BEDTIME PRN 30 days sertraline 25 mg PO .Q AM 30 days triazolam 0.125 mg PO BEDTIME PRN 30 days [wipes As directed] [wipes As directed] Tobacco use date assessed: 06/29/24 Fall risk assessment: No Falls in past year Last assessed Fall Risk: 06/29/24 Dental Screening Dental Screen Date: 06/29/24 Did you have a dental visit in the last 12 months?: Yes Did you have a dental problem in the last 6 months where you did not have access to dental care?: No Was dental information given to patient?: Patient has dentist HPI 3mth f/u HPI Details Patient comes in today for her follow up visit States that she feels okay She denies any headaches or dizziness Denies any chest pains, no SOB No nausea/vomiting, no abdominal pain No change in bowel habits noted Needs her Triazolam Rx refilled - states that this has helped her a lot with her sleeping issues at night Her daughter is also looking for Rx for a stair stepper for patient to use to exercise her legs - states that she was advised by [facility] that they will cover the Rx if her PCP will write one for her She had her follow up labs done last week - to discuss her results [facility] Medical History Hyperparathyroidism Constipation Obesity (BMI 30-39.9) Overactive bladder GERD without esophagitis Pure hypercholesterolemia Benign essential hypertension Diabetes mellitus Surgical History Status post parathyroidectomy (~09/02/22) Hx of section Status post excision of lipoma Family History Mother Diabetes mellitus Hypertension Father Hypertension Cancer Other Substance abuse Social History Housing: Apartment Alcohol intake: never Patient Tobacco Use Status: Never used Tobacco e-Cigarette/Vaping Use: Never Used Second Hand Smoke Exposure: No service: No Current occupational status: disabled Cognitive needs: Yes (walker) Hearing needs: No Vision needs: Yes Questionnaire PHQ-9 Over the last 2 weeks, how often have you been bothered by any of the following problems? 1. Little interest or pleasure in doing things: not at all 2. Feeling down, depressed, or hopeless: not at all 3. Trouble falling or staying asleep, or sleeping too much: not at all 4. Feeling tired or having little energy: not at all 5. Poor appetite or overeating: not at all 6. Feeling bad about yourself - or that you are a failure or have let yourself or your family down: not at all 7. Trouble concentrating on things, such as reading the newspaper or watching television: not at all 8. Moving or speaking so slowly that other people could have noticed. Or the opposite - being so fidgety or restless that you have been moving around a lot more than usual: not at all 9. Thoughts that you would be better off or of hurting yourself in some way: not at all Total score: 0 Depression Screening Interpretation: Negative Depression Screening Done: Yes 41908 - PHQ-9 Billing: Yes Source: Developed by Drs. Gerber Vee, Rocio Ross, Roland Henriquez and colleagues, with an educational víctor from [employer]. Thrive Questionnaire Date Thrive assessed: 06/29/24 I am a: Patient What is your living situation today?: I have a steady place to live Within the past 12 months, did the food you bought not last and you didn't have the money to get more?: Never true Within the past 12 months, did you worry whether your food would run out before you got money to buy more?: Never true Do you have trouble paying for medicines?: No Do you have trouble getting transportation to medical appointments?: No Do you have trouble paying your heating and electricity bill?: No Do you have trouble taking care of your child, family member or friend?: No Do you have trouble with day-to-day activities such as bathing, preparing meals, shopping, managing finances, etc.?: No Are you currently unemployed and looking for a job?: No Are you interested in more education?: No Please select the resources that you would like help with: None Currently or been in a relationship where the following occur: No concerns reported THRIVE Score: 0 AUDIT C Alcohol Use Questionnaire (AUDIT-C) 1. How often do you have a drink containing alcohol?: Never 3. How often do you have six or more drinks on one occasion?: Never Total Score: 0 Score Reviewed/Action Taken: Yes MOLLY-7 AMB Questionnaire MOLLY-7 Date MOLLY - 7 assessed: 06/29/24 Feeling nervous, anxious, or on edge: 0 = Not at all Not being able to stop or control worryin = Not at all Worrying too much about different things: 0 = Not at all Trouble relaxin = Not at all Being so restless that it is hard to sit still: 0 = Not at all Becoming easily annoyed or irritable: 0 = Not at all Feeling afraid as if something awful might happen: 0 = Not at all Total MOLLY-7 score (0-4 normal; 5-9 mild; 10-14 moderate; 15-21 severe): 0 Source: Developed by Drs. Gerber Vee, Rocio Ross, Roland Henriquez and colleagues, with an educational víctor from [employer]. Review of Systems Const Reports difficulty sleeping (Rx helping), Reports fatigue, Denies fever(s) and Denies headache(s) ENT Denies dysphagia, Denies dizziness, Denies otalgia, Denies headache(s), Denies neck pain, Denies odynophagia and Denies sore throat Card Denies chest pain, Denies palpitations and Denies dyspnea Resp Denies chest congestion, Denies cough and Denies dyspnea GI Denies abdominal pain, Reports constipation (on and off), Denies dysphagia, Denies heartburn, Denies diarrhea, Denies nausea, Denies odynophagia and Denies vomiting Denies difficulty voiding, Denies nocturia, Denies dysuria and Denies urinary urgency Musc Reports back pain (over the lower back), Reports arthralgias (involving multiple joints - include hips and knees) and Denies neck pain Skin/Breast Denies rash Neuro Denies dizziness and Denies headache(s) Psych Reports anxiety (increasing lately) Endo Reports fatigue and Denies palpitations Physical exam (Primary Care) Vital Signs: Last Vital Signs Pulse 78 10/09/24 12:32 BP 106/62 06/29/24 12:32 Pulse Ox 95 06/29/24 12:32 Oxygen Delivery Method Room Air 06/29/24 12:32 BMI result Body Mass Index 34.5 Tobacco/Smoking Status: Tobacco use Status Tobacco use date assessed 06/29/24 06/29/24 12:40 Patient Tobacco Use Status Never used Tobacco 06/29/24 12:40 e-Cigarette/Vaping Use Never Used 06/29/24 12:40 PHQ-9: PHQ-9 Score PHQ-9: Total score 0 06/29/24 12:40 Depression Screening Interpretation: Negative Thrive Assessment: Date of Thrive Assessment Date Thrive assessed 06/29/24 06/29/24 12:40 Currently or been in a relationship where the following occur: No concerns reported Const General: no acute distress and alert HENMT Ears: TM's normal bilaterally and EAC's normal Throat: Yes posterior oropharynx normal and Yes tonsils normal (no TP congestion noted) Neck Neck: Yes no lymphadenopathy and Yes supple Thyroid: Thyroid normal Resp Auscultation: clear to auscultation bilaterally, no rales and no wheezes Cardio Rate: regular rate Rhythm: regular rhythm Heart sounds: no murmurs GI Palpation (GI): Soft to palpation and nontender Auscultation: normal bowel sounds General: Yes no CVA tenderness Back/Spine/Pelvis Back: no CVA tenderness Thoracic/Lumbar Spine: lumbar spinal tenderness (mild) Skin Rashes: no rashes Extrem General: Yes no clubbing, cyanosis or edema Right lower extremity: hip/thigh Details: tenderness Location: of the hip and knee Details: tenderness; no swelling Left lower extremity: hip/thigh Details: tenderness Location: of the hip and knee Details: tenderness; no swelling Results Reviewed Results Reviewed: Laboratory Tests 06/21/24 06/21/24 08:15 08:25 WBC 10.0 Hgb 12.9 Hct 41.7 Plt Count 273 Sodium 143 Potassium 4.2 Creatinine 1.00 Estimated GFR 53 Fasting Glucose 165 H Hemoglobin A1c % 9.0 H Calcium 9.5 AST 11 ALT 9 Triglycerides 98 Cholesterol 146 LDL Cholesterol, Calc 83 HDL Cholesterol 44 Vitamin B12 > 2000 H 25-OH Vitamin D Total 66.6 TSH 1.27 Ur Specific [place] 1.025 Urine Protein Negative Urine Glucose (UA) >=1000 H Urine Blood Negative Urine Nitrite Negative Ur Leukocyte Esterase Small (1+) H Microalb/Creat Ratio 44.0 H Coding Level of Care Code Est Pt Level 4 (30336) Diagnoses Type 2 diabetes mellitus without complication, with long-term current use of insulin E11.9; Z79.4 Diabetes mellitus type: type 2 Diabetes mellitus long term care pharmacist insulin use: with long term care pharmacist use Diabetes mellitus complication status: without complication Pure hypercholesterolemia E78.00 Benign essential hypertension I10 Hyperparathyroidism E21.3 GERD without esophagitis K21.9 Constipation, unspecified constipation type K59.00 Constipation type: unspecified constipation type Overactive bladder N32.81 Arthralgia, unspecified joint M25.50 Joint pain location: unspecified Insomnia, unspecified type G47.00 Insomnia type: unspecified Anxiety F41.9 Obesity (BMI 30-39.9) E66.9 Assessment & Plan Assessment & Plan (1) Diabetes mellitus: Code(s): E11.9 - Type 2 diabetes mellitus without complications Category: Medical Qualifiers: Diabetes mellitus type: type 2 Diabetes mellitus long term care pharmacist insulin use: with long term care pharmacist use Diabetes mellitus complication status: without complication Qualified Code(s): E11.9 - Type 2 diabetes mellitus without complications; Z79.4 - snf (current) use of insulin Plan: Her HgbA1c has improved to 9.0% on her labs done last week (was at 9.8% a few months ago) - goal is at least 7.5% or less Reinforced diabetic diet Patient was previously seeing an it desktop support specialist based in [place] (patient does not remember doctor's name) but is now following up [place] [facility] for her diabetes Continue Ozempic 0.5 mg SQ once a week, Jardiance 25 mg Q AM and Tresiba 30 units Q HS Her Metformin and Humalog have both been discontinued by endocrinology recently Have advised patient again that as she is now seeing endocrinology, I will leave it up to them to adjust and manage her diabetes meds but reassured her that her glycemic control has been improving slowly and she is going in the right direction She has a follow up appointment with endocrinology tomorrow and she is encouraged to keep her appt (2) Pure hypercholesterolemia: Code(s): E78.00 - Pure hypercholesterolemia, unspecified Category: Medical Plan: Results of her labs done last week reviewed and discussed with patient Reinforced low cholesterol diet Continue Atorvastatin 20 mg QD Will recheck her labs and fasting lipids in 3 months for follow up (3) Benign essential hypertension: Code(s): I10 - Essential (primary) hypertension Category: Medical Plan: Reinforced low sodium diet - goal is systolic BP of at least 140 to 150 mm or less Continue Enalapril 10 mg QD (4) Hyperparathyroidism: Code(s): E21.3 - Hyperparathyroidism, unspecified Category: Medical Plan: S/P parathyroidectomy with Dr. Ferrera in [place] on 09/02/2022 She was reportedly advised by Dr. Ferrera that he will just need to see her for follow up on an as needed basis and for her to just continue seeing her it desktop support specialist and PCP regularly from now on for routine surveillance/follow up (5) GERD without esophagitis: Code(s): K21.9 - Gastro-esophageal reflux disease without esophagitis Category: Medical Plan: Dietary restrictions reinforced Continue Omeprazole 40 mg QD (6) Constipation: Code(s): K59.00 - Constipation, unspecified Category: Medical Qualifiers: Constipation type: unspecified constipation type Qualified Code(s): K59.00 - Constipation, unspecified Plan: Reinforced increased oral fluids and dietary fiber She was taking Miralax 17 gm QD in the past but stopped taking it a few months ago as she was throwing up every time she takes the Rx Continue Senna 8.6 mg QD PRN (7) Overactive bladder: Code(s): N32.81 - Overactive bladder Category: Medical Plan: Continue Oxybutynin ER 5 mg QD States that she is still getting up to go to the bathroom about 4 times a night Will consider increasing Rx dosage if her symptoms persist/progress but due to her age, will continue on same dose for now as higher doses may result in side effects, including drowsiness which may increase her risks of injuries (8) Arthralgia: Code(s): M25.50 - Pain in unspecified joint Category: Medical Qualifiers: Joint pain location: unspecified Qualified Code(s): M25.50 - Pain in unspecified joint Plan: Continue topical Diclofenac 1% gel to apply to affected/painful areas QID PRN and Gabapentin 100 mg BID Per request, Rx for Stair Steppers printed out and handed to patient - states that they will send this over to [facility] (9) Insomnia: Code(s): G47.00 - Insomnia, unspecified Category: Medical Qualifiers: Insomnia type: unspecified Qualified Code(s): G47.00 - Insomnia, unspecified Plan: Sleep hygiene reinforced Continue Triazolam 0.125 mg Q HS PRN - Rx refilled (10) Anxiety: Code(s): F41.9 - Anxiety disorder, unspecified Category: Medical Plan: Continue Sertraline 25 mg Q AM (11) Obesity (BMI 30-39.9): Code(s): E66.9 - Obesity, unspecified Category: Medical Plan: Reinforced diet; exercise and weight loss are unrealistic due to patient's age and physical limitations Plan Follow up in 3 months Orders: Orders UA CC w/rflx Micro + Cult 3 Months R30.0 - Dysuria Hemoglobin A1c 3 Months E11.9 - Type 2 diabetes mellitus without complications Complete Blood Count Auto Diff 3 Months D64.9 - Anemia, unspecified Comprehensive [place]. Panel Fast 3 Months E78.00 - Pure hypercholesterolemia, unspecified Lipid Panel 3 Months E78.00 - Pure hypercholesterolemia, unspecified Microalbumin, Random (w Creat) 3 Months E11.9 - Type 2 diabetes mellitus without complications Medications: New [STAIR STEPPERS] As directed 1 ea 0RF M19.90 - Unspecified osteoarthritis, unspecified site, M81.0 - Age-related osteoporosis without current pathological fracture Refilled triazolam 0.125 mg PO BEDTIME 30 days PRN 30 tabs 2RF sleep
== END 2024-06-29 13:10 | disposition home or self-care (01) ==
PROVIDERS: PCP Internal Medicine; Visit Provider Internal Medicine
DX: E11.9 Type 2 diabetes mellitus without complications (principal); Z79.4 Long term (current) use of insulin; E21.3 Hyperparathyroidism, unspecified; E78.00 Pure hypercholesterolemia, unspecified; I10 Essential (primary) hypertension; K21.9 Gastro-esophageal reflux disease without esophagitis; K59.00 Constipation, unspecified; N32.81 Overactive bladder; M25.50 Pain in unspecified joint; G47.00 Insomnia, unspecified; F41.9 Anxiety disorder, unspecified; E66.9 Obesity, unspecified

== ENCOUNTER → 2024-06-29 12:10 | Outpatient (BNVA) | payer OTHER, SELFPAY | PROVIDERS: PCP Internal Medicine; Visit Provider Internal Medicine | DX: E11.9 Type 2 diabetes mellitus without complications (principal); Z79.4 Long term (current) use of insulin; E78.00 Pure hypercholesterolemia, unspecified; I10 Essential (primary) hypertension; E21.3 Hyperparathyroidism, unspecified; K21.9 Gastro-esophageal reflux disease without esophagitis; N32.81 Overactive bladder; M25.50 Pain in unspecified joint; F41.9 Anxiety disorder, unspecified; E66.9 Obesity, unspecified; G47.00 Insomnia, unspecified | CPT/HCPCS: 96127; 99212 ==

== ENCOUNTER 2024-06-30 10:12 | Outpatient (AMB) | payer OTHER, SELFPAY ==
--- NOTE | 2024-06-30 10:15 | A.OFFVIS_ITS ---
Vital Signs 06/30/24 10:17 Height 4 ft 11 in Weight 169 lb 12.095 oz BMI 34.3 BP 108/62 Blood Pressure Location Rt brachial Position Sitting Pulse 85 Pulse Source Pulse Oximeter Intake Visit Reasons: T2DM/CONFIRMED Intake Note: Patient presents today to follow up on D2MT. Last Diabetic Eye exam: 01/2024 Last Podiatry Visit: Does not see a Stone Spreader Operator Most Recent HgA1c: 9.6%, 06/30/2024 Random Glucose: 300 mg/dL, Today Customer Care Agent Required: No Accompanied by: Daughter Allergies No Known Allergies Allergy (Verified 06/30/24 10:20) Medication List - Last Reconciled 06/30/24 by Luana Cardona MD atorvastatin 20 mg PO DAILY 90 days benzonatate 200 mg PO TID PRN blood sugar diagnostic (FreeStyle Lite Strips) As directed once a day blood-glucose meter (FreeStyle Lite Meter kit) As directed cyclobenzaprine 5 mg PO TID PRN 10 days diclofenac sodium 1% 2 grams topical QID PRN disposable gloves (Disposable Latex-Free Gloves) As directed dorzolamide-timolol 22.3-6.8 mg/mL 1 drp ophthalmic (eye) BID empagliflozin (Jardiance) 25 mg PO DAILY enalapril maleate 10 mg PO DAILY 90 days flash glucose scanning reader (FreeStyle Terri 2 [place]) As directed flash glucose sensor (FreeStyle Terri 2 Sensor kit) As directed change every 14 days gabapentin 100 mg PO BID 90 days glucagon 3 mg/actuation (Baqsimi) 3 mg intranasal ONCE ibuprofen 600 mg PO Q8H PRN incontinence pad, liner, disp To be changed 6 to 8 times a day incontinence pad, liner, disp To be changed 6 to 8 times a day incontinence pad, liner, disp (Pads For Women) As directed insulin degludec (Tresiba FlexTouch U-100 insulin) 30 units (0.3 mL) subcut BEDTIME insulin syr/ndl U100 half geoffrey (BD Insulin Syringe Ultra-Fine (half unit)) Use 4 times daily ketorolac 0.5% 0 drps ophthalmic (eye) lancets (FreeStyle Lancets) As directed once a day latanoprost 0.005% 0 drps ophthalmic (eye) netarsudil 0.02% (Rhopressa) 1 drp ophthalmic-Right BEDTIME omeprazole 40 mg PO DAILY 90 days oxybutynin chloride ER 5 mg PO DAILY 90 days pen needle, diabetic (BD Ultra-Fine Mini Pen Needle) Use as directed once a day with Tresiba semaglutide (Ozempic) 0.5 mg (0.736 mL) subcut QWEEK 12 weeks sennosides (senna) 8.6 mg PO BEDTIME PRN 30 days sertraline 25 mg PO .Q AM 30 days [STAIR STEPPERS As directed] triazolam 0.125 mg PO BEDTIME PRN 30 days [wipes As directed] [wipes As directed] HPI Comments Details: This is an 83 year old female with a past medical history of IDDM presenting for follow up Initially diagnosed with T2DM ~20 yrs. Saw faith in [facility] long time ago. Saw Dr Vu 04/2023. Current regimen Ozempic 0.5 mg Qwkly-increased from 0.25 last visit Tresiba 30 units -taking Novolog- not taking started jardiance last visit Past mekmxhkwtyz-[id number] but failed effectiveness. metformin 500 mg BID -she stopped this due to GI side effects Patient was prescribed Terri CGM. Did not like it. Checking fasting blood glucose once daily. A1C last week 9.0% from 9.8 prior. No interval med change however has changed diet. Unfortunately, patient did not bring glucometer or log book to visit Treats any low BG with OJ. None under 70. Checks sugar after to ensure it is rising. Checks 2 hr after corrects Family history of T2DM in mother and grandmother . Follows with maria fernanda michaelsrts exam is UTD. Has retinopathy and getting injections . Mild bilateral foot numbness, no pain. Not seeing podiatry Denies nephropathy, on CANDICE/ARB. Has HLD, on statin. Denies CAD. Has had diabetic education ROS CONSTITUTIONAL: Denies weight loss, fever and chills. HEENT: Denies changes in vision and hearing. RESPIRATORY: Denies SOB and cough. CV: Denies palpitations and CP GI: Denies abdominal pain, nausea, vomiting and diarrhea. : Denies dysuria and urinary frequency. MSK: Denies new myalgia and joint pain. SKIN: Denies rash and pruritus. NEUROLOGICAL: Denies headache PSYCHIATRIC: Denies recent changes in mood. PHYSICAL EXAM: GENERAL: Alert and oriented x 3. NAD EYES: EOMI. Anicteric. HENT: Moist mucous membranes. No scleral icterus. No cervical lymphadenopathy. LUNGS: Clear to auscultation bilaterally. CARDIOVASCULAR: Regular rate and rhythm. No murmur. No JVD. ABDOMEN: Soft, non-tender +bs EXTREMITIES: No edema. Non-tender. SKIN: No rashes or lesions. Warm. NEUROLOGIC: No focal neurological deficits. CN II-XII grossly intact. Normal monofilament. Intact vibratory sense PSYCHIATRIC: Cooperative. Appropriate mood and affect [facility] Medical History Hyperparathyroidism Constipation Obesity (BMI 30-39.9) Overactive bladder GERD without esophagitis Pure hypercholesterolemia Benign essential hypertension Diabetes mellitus Surgical History Status post parathyroidectomy (~09/02/22) Hx of section Status post excision of lipoma Family History Mother Diabetes mellitus Hypertension Father Hypertension Cancer Other Substance abuse Social History Housing: Apartment Alcohol intake: never Patient Tobacco Use Status: Never used Tobacco e-Cigarette/Vaping Use: Never Used Second Hand Smoke Exposure: No service: No Current occupational status: disabled Cognitive needs: Yes (walker) Hearing needs: No Vision needs: Yes Physical Exam Vital Signs: Last Vital Signs Pulse 85 06/30/24 10:17 BP 108/62 06/30/24 10:17 BMI result Body Mass Index 34.3 Results AMB Hemoglobin A1c AMB Hemoglobin A1c 9.6 % Last Edit by MANINDER Mota on 06/30/24 11:05 Results Reviewed Results Reviewed: Laboratory Last Values Glucose (Clinic) 300 mg/dL (60-115) H 06/30/24 10:23 Assessment & Plan Assessment & Plan (1) Diabetes mellitus with hyperglycemia, with long-term current use of insulin: Code(s): E11.65 - Type 2 diabetes mellitus with hyperglycemia; Z79.4 - vermin exterminator (current) use of insulin Category: Medical Qualifiers: Diabetes mellitus type: type 2 Qualified Code(s): E11.65 - Type 2 diabetes mellitus with hyperglycemia; Z79.4 - vermin exterminator (current) use of insulin Plan: Tolerating ozempic well. Will increase to 1mg weekly Will also likely need increase in insulin dose however patient will return in four weeks to check glucometer/log to make she is not having and are at not at risk of low BG. Orders: Orders AMB Hemoglobin A1c Today E11.9 - Type 2 diabetes mellitus without compl ications, Z79.4 - shelter (current) use of insulin Medications: New semaglutide (Ozempic) 1 mg (0.75 mL) subcut QWEEK 3 mL 3RF Discontinued semaglutide (Ozempic) Discontinued Reason: Doctor's Order 0.5 mg (0.736 mL) subcut QWEEK 12 weeks 8.832 mL 1RF Coding Level of Care Code Est Pt Level 4 (34894) Diagnoses Type 2 diabetes mellitus with hyperglycemia, with long-term current use of insulin E11.65; Z79.4 Diabetes mellitus type: type 2
[2024-06-30 10:17] VITALS: BP 108/62; PULSE 85; BMI 34.3
[2024-06-30 10:28] LABS: Glucose, Whole Blood 300 mg/dL (60-115)
== END 2024-06-30 10:50 | disposition home or self-care (01) ==
PROVIDERS: PCP Internal Medicine; Visit Provider Internal Medicine
DX: E11.9 Type 2 diabetes mellitus without complications (principal); Z79.4 Long term (current) use of insulin; E11.65 Type 2 diabetes mellitus with hyperglycemia

== ENCOUNTER → 2024-06-30 10:12 | Outpatient (BNVA) | payer OTHER, SELFPAY | PROVIDERS: PCP Internal Medicine; Visit Provider Internal Medicine | DX: E11.65 Type 2 diabetes mellitus with hyperglycemia (principal); Z79.4 Long term (current) use of insulin | CPT/HCPCS: 82947; 83036; 99212 ==

== ENCOUNTER 2024-08-17 09:43 | Outpatient (AMB) | payer OTHER, SELFPAY ==
--- NOTE | 2024-08-17 09:52 | MHC.OFFVIS ---
Vital Signs 08/17/24 09:53 Height 4 ft 11 in Weight 170 lb 6.677 oz BMI 34.4 BP 112/54 L Blood Pressure Location Rt brachial Position Sitting Pulse 76 Pulse Source Pulse Oximeter Intake Visit Reasons: T2DM/CONFIRMED Intake Note: Patient present today to follow up on Type 2 Diabetes Mellitus. Last Diabetic Eye exam: January 2024 Last Podiatry Visit: Does not see a Java Developer Consultant Random Glucose: 151 mg/dl HgA1C: 9.6% 06/30/24 Box Tender Required: No Accompanied by: Daughter Allergies No Known Allergies Allergy (Verified 08/17/24 09:55) HPI Comments Details: This is an 83 year old female with a past medical history of IDDM presenting for follow up Initially diagnosed with T2DM ~20 yrs. Saw [facility] in [facility] long time ago. Saw Dr Vu 04/2023. Current regimen Ozempic 1 mg Qwkly-increased from 0.5 last visit Tresiba 30 units -taking Novolog- not taking Continue jardiance Past lamanbnirfd-Byzzrvlee-skpxrumdj but failed effectiveness. metformin 500 mg BID -she stopped this due to GI side effects Patient was prescribed Terri CGM. Did not like it. Checking fasting blood glucose once daily. Forgot her meter today notes fasting blood glucose 95-150 with one outlying fasting reading at 200. A1C 06/30-9.6 Treats any low BG with OJ. None under 70. Checks sugar after to ensure it is rising. Checks 2 hr after corrects Family history of T2DM in mother and grandmother . Follows with ophtho eports exam is UTD. Has retinopathy and getting injections . Mild bilateral foot numbness, no pain. Not seeing podiatry Denies nephropathy, on CANDICE/ARB. Has HLD, on statin. Denies CAD. Has had diabetic education ROS CONSTITUTIONAL: Denies weight loss, fever and chills. HEENT: Denies changes in vision and hearing. RESPIRATORY: Denies SOB and cough. CV: Denies palpitations and CP GI: Denies abdominal pain, nausea, vomiting and diarrhea. : Denies dysuria and urinary frequency. MSK: Denies new myalgia and joint pain. SKIN: Denies rash and pruritus. NEUROLOGICAL: Denies headache PSYCHIATRIC: Denies recent changes in mood. PHYSICAL EXAM: GENERAL: Alert and oriented x 3. NAD EYES: EOMI. Anicteric. HENT: Moist mucous membranes. No scleral icterus. No cervical lymphadenopathy. LUNGS: Clear to auscultation bilaterally. CARDIOVASCULAR: Regular rate and rhythm. No murmur. No JVD. ABDOMEN: Soft, non-tender +bs EXTREMITIES: No edema. Non-tender. SKIN: No rashes or lesions. Warm. NEUROLOGIC: No focal neurological deficits. CN II-XII grossly intact. Normal monofilament. Intact vibratory sense PSYCHIATRIC: Cooperative. Appropriate mood and affect [facility] Medical History Hyperparathyroidism Constipation Obesity (BMI 30-39.9) Overactive bladder GERD without esophagitis Pure hypercholesterolemia Benign essential hypertension Diabetes mellitus Surgical History Status post parathyroidectomy (~09/02/22) Hx of section Status post excision of lipoma Family History Mother Diabetes mellitus Hypertension Father Hypertension Cancer Other Substance abuse Social History Housing: Apartment Alcohol intake: never Patient Tobacco Use Status: Never used Tobacco e-Cigarette/Vaping Use: Never Used Second Hand Smoke Exposure: No service: No Current occupational status: disabled Cognitive needs: Yes (walker) Hearing needs: No Vision needs: Yes Physical Exam Vital Signs: Last Vital Signs Pulse 76 08/17/24 09:53 BP 112/54 L 08/17/24 09:53 BMI result Body Mass Index 34.4 Assessment & Plan Assessment & Plan (1) Diabetes mellitus with hyperglycemia, with long-term current use of insulin: Code(s): E11.65 - Type 2 diabetes mellitus with hyperglycemia; Z79.4 - intermediate manager (current) use of insulin Category: Medical Qualifiers: Diabetes mellitus type: type 2 Qualified Code(s): E11.65 - Type 2 diabetes mellitus with hyperglycemia; Z79.4 - [facility] (current) use of insulin Plan: Improving fasting numbers per patient report continue current medication doses-next visit 2 months with A1C Annual eye exam Medications: Refilled semaglutide (Ozempic) 1 mg (0.75 mL) subcut QWEEK 9 mL 3RF E11.65 - Type 2 diabetes mellitus with hyperglycemia, Z79.4 - intermediate manager (current) use of insulin blood sugar diagnostic (FreeStyle Lite Strips) As directed once a day 100 ea 12RF E11.9 - Type 2 diabetes mellitus without complications, Z79.4 - [facility] (current) use of insulin lancets (FreeStyle Lancets) As directed once a day 100 ea 12RF E11.9 - Type 2 diabetes mellitus without complications, Z79.4 - [facility] (current) use of insulin semaglutide (Ozempic) 1 mg (0.75 mL) subcut QWEEK 3 mL 3RF Coding Level of Care Code Est Pt Level 4 (92664) Diagnoses Type 2 diabetes mellitus with hyperglycemia, with long-term current use of insulin E11.65; Z79.4 Diabetes mellitus type: type 2
[2024-08-17 09:53] VITALS: BP 112/54; PULSE 76; BMI 34.4
[2024-08-17 10:03] LABS: Glucose, Whole Blood 151 mg/dL (60-115)
== END 2024-08-17 10:14 | disposition home or self-care (01) ==
PROVIDERS: PCP Internal Medicine; Visit Provider Internal Medicine
DX: E11.65 Type 2 diabetes mellitus with hyperglycemia (principal); Z79.4 Long term (current) use of insulin

== ENCOUNTER → 2024-08-17 09:43 | Outpatient (BNVA) | payer OTHER, SELFPAY | PROVIDERS: PCP Internal Medicine; Visit Provider Internal Medicine | DX: E11.65 Type 2 diabetes mellitus with hyperglycemia (principal); Z79.4 Long term (current) use of insulin | CPT/HCPCS: 82947; 99212 ==

== ENCOUNTER 2024-09-28 09:23 | Outpatient (AMB) | payer OTHER, SELFPAY ==
[2024-09-28 09:24] VITALS: BP 100/66; PULSE 74; BMI 33.4
--- NOTE | 2024-09-28 09:24 | A.OFFVIS_ITS ---
Vital Signs 09/28/24 09:24 Height 4 ft 11 in Weight 165 lb 5.547 oz BMI 33.4 BP 100/66 Blood Pressure Location Rt brachial Position Sitting Pulse 74 Pulse Source Pulse Oximeter Intake Visit Reasons: diabetes follow up, bring meter Intake Note: Patient presents today for a follow-up on Type 2 Diabetes Mellitus: Last Diabetic eye exam was on: 01/20/2024 Last Podiatry exam was on: Patient does not see a Wealth Management Consultant Most recent HbA1c: 8.6%, 09/28/2024 Random Glucose- 168 mg/dL, Today Chief Technical Officer Required: Yes Chief Technical Officer Language: Property Clerk Services: Chief Technical Officer Offered & Declined Accompanied by: Daughter Allergies No Known Allergies Allergy (Verified 09/28/24 09:26) HPI Comments Details: This is an 83 year old female with a past medical history of IDDM presenting for follow up Initially diagnosed with T2DM ~20 yrs. Saw faith in [facility] long time ago. Saw Dr Vu 04/2023. Current regimen Ozempic 1 mg Qwkly-she has lost pounds Tresiba 30 units -taking Novolog- not taking Continue jardiances Past ohtlbbqhjxc-Kjwdkjiqy-udiqnhxxp but failed effectiveness. metformin 500 mg BID -she stopped this due to GI side effects Patient was prescribed Terri CGM. Did not like it. Checking fasting blood glucose once daily. Forgot her meter today notes fasting blood glucose 110-191. A1C 10/10-9.6 today POC A1C is 8.6%. Treats any low BG with OJ. None under 70. Checks sugar after to ensure it is rising. Checks 2 hr after corrects Family history of T2DM in mother and grandmother . Follows with raad michaels exam is UTD. Has retinopathy and getting injections . Mild bilateral foot numbness, no pain. Not seeing podiatry Denies nephropathy, on CANDICE/ARB. Has HLD, on statin. Denies CAD. Has had diabetic education ROS CONSTITUTIONAL: Denies weight loss, fever and chills. HEENT: Denies changes in vision and hearing. RESPIRATORY: Denies SOB and cough. CV: Denies palpitations and CP GI: Denies abdominal pain, nausea, vomiting and diarrhea. : Denies dysuria and urinary frequency. MSK: Denies new myalgia and joint pain. SKIN: Denies rash and pruritus. NEUROLOGICAL: Denies headache PSYCHIATRIC: Denies recent changes in mood. PHYSICAL EXAM: GENERAL: Alert and oriented x 3. NAD EYES: EOMI. Anicteric. HENT: Moist mucous membranes. No scleral icterus. No cervical lymphadenopathy. LUNGS: Clear to auscultation bilaterally. CARDIOVASCULAR: Regular rate and rhythm. No murmur. No JVD. ABDOMEN: Soft, non-tender +bs EXTREMITIES: No edema. Non-tender. SKIN: No rashes or lesions. Warm. NEUROLOGIC: No focal neurological deficits. CN II-XII grossly intact. Normal monofilament. Intact vibratory sense PSYCHIATRIC: Cooperative. Appropriate mood and affect [facility] Medical History Hyperparathyroidism Constipation Obesity (BMI 30-39.9) Overactive bladder GERD without esophagitis Pure hypercholesterolemia Benign essential hypertension Diabetes mellitus Surgical History Status post parathyroidectomy (~09/02/22) Hx of section Status post excision of lipoma Family History Mother Diabetes mellitus Hypertension Father Hypertension Cancer Other Substance abuse Social History Housing: Apartment Alcohol intake: never Patient Tobacco Use Status: Never used Tobacco e-Cigarette/Vaping Use: Never Used Second Hand Smoke Exposure: No service: No Current occupational status: disabled Cognitive needs: Yes (walker) Hearing needs: No Vision needs: Yes Physical Exam Vital Signs: Last Vital Signs Pulse 74 09/28/24 09:24 BP 100/66 09/28/24 09:24 BMI result Body Mass Index 33.4 Results AMB Hemoglobin A1c AMB Hemoglobin A1c 8.6 % Last Edit by MANINDER Mota on 09/28/24 09:51 Results Reviewed Results Reviewed: Laboratory Last Values Glucose (Clinic) 168 mg/dL (60-115) H 09/28/24 09:38 Hgb A1c (Clinic) 8.6 % (4.0-6.0) H 09/28/24 09:50 Assessment & Plan Assessment & Plan (1) Diabetes mellitus with hyperglycemia, with long-term current use of insulin: Code(s): E11.65 - Type 2 diabetes mellitus with hyperglycemia; Z79.4 - skilled nursing (cur rent) use of insulin Category: Medical Qualifiers: Diabetes mellitus type: type 2 Qualified Code(s): E11.65 - Type 2 diabetes mellitus with hyperglycemia; Z79.4 - skilled nursing (current) use of insulin Plan: Increase tresiba to 34 units. There has not been any hypoglycemia she will continue current ozempic dose and jardiance She will return in 4-6 weeks for further adjustment as needed Orders: Orders AMB Hemoglobin A1c Today E11.9 - Type 2 diabetes mellitus without complications, Z79.4 - retail management trainee (current) use of insulin Medications: Changed From insulin degludec (Tresiba FlexTouch U-100 insulin) 30 units (0.3 mL) subcut BEDTIME 15 mL 3RF To insulin degludec (Tresiba FlexTouch U-100 insulin) 34 units (0.34 mL) subcut BEDTIME 30 mL 3RF Coding Level of Care Code Est Pt Level 4 (02266) Diagnoses Type 2 diabetes mellitus with hyperglycemia, with long-term current use of insulin E11.65; Z79.4 Diabetes mellitus type: type 2
[2024-09-28 09:43] LABS: Glucose, Whole Blood 168 mg/dL (60-115)
== END 2024-09-28 10:01 | disposition home or self-care (01) ==
PROVIDERS: PCP Internal Medicine; Visit Provider Internal Medicine
DX: E11.9 Type 2 diabetes mellitus without complications (principal); Z79.4 Long term (current) use of insulin; E11.65 Type 2 diabetes mellitus with hyperglycemia

== ENCOUNTER → 2024-09-28 09:23 | Outpatient (BNVA) | payer OTHER, SELFPAY | PROVIDERS: PCP Internal Medicine; Visit Provider Internal Medicine | DX: E11.65 Type 2 diabetes mellitus with hyperglycemia (principal); Z79.4 Long term (current) use of insulin | CPT/HCPCS: 82947; 83036; 99212 ==

== ENCOUNTER 2024-10-17 08:10 | Outpatient (REF) | payer OTHER, SELFPAY ==
[2024-10-17 08:35] LABS: MANUAL DIFF FLAG NO
[2024-10-17 08:51] LABS: Basophils Absolute Auto 0.1 X10*3/uL (0.0-0.2); Basophils Percent Auto 0.5 % (0-2); Eosinophils Absolute Auto 0.2 X10*3/uL (0.0-0.4); Eosinophils Percent Auto 1.9 % (0-4); Hemoglobin 13.1 g/dl (12.0-16.0); Imm Gran Abs Auto 0.04 X10*3/uL (0.00-0.03); Imm Gran Pct Auto 0.4 % (0.0-0.4); Lymphocytes Percent Auto 30.7 % (20-40); Mean Corpuscular Hemoglobin 27.2 pg (27.0-33.0); Mean Corpuscular Volume 85.1 fL (80.0-98.0); Mean Platelet Volume 10.6 fL (9.4-12.3); Monocytes Absolute Auto 0.5 X10*3/uL (0.1-1.2); Monocytes Percent Auto 5.2 % (2-11); Neutrophils Absolute Auto 6.1 x10*3/uL (2.0-8.3); Neutrophils Percent Auto 61.3 % (45-73); Platelet Count 341 X10*3/uL (160-400); Red Blood Count 4.82 X10*6/uL (4.20-5.50); White Blood Count 9.9 X10*3/uL (4.8-10.8)
[2024-10-17 08:55] LABS: Estimated Average Glucose 189 mg/dL; Hemoglobin A1C 223.1256 umol/L; Hemoglobin A1c % 8.2 % (<6.0)
[2024-10-17 09:48] LABS: Appearance Urine Cloudy; Color Urine Yellow; Glucose Urine UA >=1000 mg/dL (Negative); Leukocyte Esterase Urine Small (1+) (Negative); Nitrite Urine Negative (Negative); PH 5.5 (5.0-9.0); Specific Gravity - Urine 1.025 (1.005-1.025); UMIC TRIGGER UACC YES; Urine Blood Negative (Negative); Urine Ketones Negative (Negative); Urine Protein Negative (Neg-Trace)
[2024-10-17 09:51] LABS: Bacteria Urine 4+ (None Seen); Hyaline Casts Urine 0-2 /LPF (0-2); RBC Urine 0-2 /HPF (0-2); UACC Culture Trigger YES; WBC Urine >50 /HPF (0-5)
[2024-10-17 09:56] LABS: Alanine Aminotransferase 13 U/L (0-31); Albumin Level 3.7 g/dL (3.5-5.0); Alkaline Phosphatase 115 U/L (39-117); Anion Gap 13 (12-20); Aspartate Amino Transferase 20 U/L (5-31); Bilirubin Total 0.2 mg/dL (0.0-1.0); Blood Urea Nitrogen 21 mg/dL (9-16); Calcium 9.4 mg/dL (8.4-10.2); Carbon Dioxide 27 mmol/L (22-29); Chloride 107 mmol/L (96-108); Cholesterol 120 mg/dL (<200); Estimated Glomerular Filt Rate 48; Glucose Fasting 141 mg/dL (60-99); HDL Cholesterol 34 mg/dL (>40); LDL Cholesterol Calculated 72 mg/dL (<100); Potassium 4.5 mmol/L (3.3-5.1); Sodium 142 mmol/L (135-145); Total Protein 7.8 g/dL (6.5-8.0); Triglycerides 74 mg/dL (<150)
[2024-10-17 10:03] LABS: Creatinine Urine 76.85 mg/dL; Microalbum/Creatinine Ratio Ur 16.9 ug/mg cr (<30)
== END 2024-10-17 08:11 | disposition home or self-care (01) ==
LOC: HO.LAB 08:10
PROVIDERS: PCP Internal Medicine; Visit Provider Internal Medicine
DX: D64.9 Anemia, unspecified (principal); E78.00 Pure hypercholesterolemia, unspecified; E11.9 Type 2 diabetes mellitus without complications; R30.0 Dysuria
CPT/HCPCS: 36415; 80053; 80061; 81001; 82043; 82570; 83036; 85025; 87086; 87088; 87186

== ENCOUNTER 2024-10-26 09:29 | Outpatient (AMB) | payer OTHER, SELFPAY ==
[2024-10-26 09:30] VITALS: BP 118/62; PULSE 81; O2SAT 96; BMI 33.9
--- NOTE | 2024-10-26 09:30 | A.OFFPC_ITS ---
Vital Signs 10/26/24 09:30 Height 4 ft 11 in Weight 167 lb 15.876 oz BMI 33.9 BP 118/62 Blood Pressure Location Lt brachial Position Sitting Pulse 81 Pulse Source Pulse Oximeter Pulse Oximetry (%) 96 Oxygen Delivery Method Room Air Intake Visit Reasons: DM, insomnia Brake Repair Mechanic Required: No Accompanied by: Self / Same As Patient Allergies No Known Allergies Allergy (Verified 10/26/24 10:29) Medication List - Last Reconciled 10/26/24 by Rodrigo Damon MD atorvastatin 20 mg PO DAILY 90 days blood sugar diagnostic (FreeStyle Lite Strips) As directed once a day blood-glucose meter (FreeStyle Lite Meter kit) As directed cyclobenzaprine 5 mg PO TID PRN 10 days diclofenac sodium 1% 2 grams topical QID PRN disposable gloves (Disposable Latex-Free Gloves) As directed dorzolamide-timolol 22.3-6.8 mg/mL 1 drp ophthalmic (eye) BID empagliflozin (Jardiance) 25 mg PO DAILY enalapril maleate 10 mg PO DAILY 90 days [exercise peddler As directed] flash glucose scanning reader ([place]Style Terri 2 [place]) As directed flash glucose sensor (FreeStyle Terri 2 Sensor kit) As directed change every 14 days [Full size firm mattress As directed] gabapentin 100 mg PO BID 90 days glucagon 3 mg/actuation (Baqsimi) 3 mg intranasal ONCE ibuprofen 600 mg PO Q8H PRN incontinence pad, liner, disp To be changed 6 to 8 times a day incontinence pad, liner, disp (Pads For Women) As directed incontinence pad, liner, disp To be changed 6 to 8 times a day insulin degludec (Tresiba FlexTouch U-100 insulin) 34 units (0.34 mL) subcut BEDTIME insulin syr/ndl U100 half geoffrey (BD Insulin Syringe Ultra-Fine (half unit)) Use 4 times daily ketorolac 0.5% 0 drps ophthalmic (eye) lancets (FreeStyle Lancets) As directed once a day latanoprost 0.005% 0 drps ophthalmic (eye) netarsudil 0.02% (Rhopressa) 1 drp ophthalmic-Right BEDTIME omeprazole 40 mg PO DAILY 90 days oxybutynin chloride ER 5 mg PO DAILY 90 days pen needle, diabetic (BD Ultra-Fine Mini Pen Needle) Use as directed once a day with Tresiba semaglutide (Ozempic) 1 mg (0.75 mL) subcut QWEEK sennosides (senna) 8.6 mg PO BEDTIME PRN 30 days sertraline 25 mg PO .Q AM 30 days [STAIR STEPPERS As directed] triazolam 0.125 mg PO BEDTIME PRN 30 days [wipes As directed] [wipes As directed] Tobacco use date assessed: 10/26/24 Fall risk assessment: No Falls in past year Last assessed Fall Risk: 10/26/24 Dental Screening Dental Screen Date: 10/26/24 Did you have a dental visit in the last 12 months?: Yes Did you have a dental problem in the last 6 months where you did not have access to dental care?: No Was dental information given to patient?: Patient has dentist HPI DM, insomnia HPI Details Patient comes in today for her follow up visit States that she feels okay She denies any headaches or dizziness Denies any chest pains, no SOB No nausea/vomiting, no abdominal pain No change in bowel habits noted - is still having problems with constipation at times even with her current Rx She had her follow up labs done last week - to discuss her results She was seen by endocrinology for follow up a few weeks ago and had her Tresiba dose increased by 4 units - she is not at 34 units QD ON LICENSE OF [facility] Medical History Hyperparathyroidism Constipation Obesity (BMI 30-39.9) Overactive bladder GERD without esophagitis Pure hypercholesterolemia Benign essential hypertension Diabetes mellitus Surgical History Status post parathyroidectomy (~09/02/22) Hx of section Status post excision of lipoma Family History Mother Diabetes mellitus Hypertension Father Hypertension Cancer Other Substance abuse Social History Housing: Apartment Alcohol intake: never Patient Tobacco Use Status: Never used Tobacco e-Cigarette/Vaping Use: Never Used Second Hand Smoke Exposure: No service: No Current occupational status: disabled Cognitive needs: Yes (walker) Hearing needs: No Vision needs: Yes Questionnaire PHQ-9 Over the last 2 weeks, how often have you been bothered by any of the following problems? 1. Little interest or pleasure in doing things: not at all 2. Feeling down, depressed, or hopeless: not at all 3. Trouble falling or staying asleep, or sleeping too much: not at all 4. Feeling tired or having little energy: not at all 5. Poor appetite or overeating: not at all 6. Feeling bad about yourself - or that you are a failure or have let yourself or your family down: not at all 7. Trouble concentrating on things, such as reading the newspaper or watching television: not at all 8. Moving or speaking so slowly that other people could have noticed. Or the opposite - being so fidgety or restless that you have been moving around a lot more than usual: not at all 9. Thoughts that you would be better off or of hurting yourself in some way: not at all Total score: 0 Depression Screening Interpretation: Negative Depression Screening Done: Yes 64063 - PHQ-9 Billing: Yes Source: Developed by Drs. Gerber Vee, Rocio Ross, Roland Henriquez and colleagues, with an educational víctor from [employer]. Thrive Questionnaire Date Thrive assessed: 10/26/24 I am a: Patient What is your living situation today?: I have a steady place to live Within the past 12 months, did the food you bought not last and you didn't have the money to get more?: Never true Within the past 12 months, did you worry whether your food would run out before you got money to buy more?: Never true Do you have trouble paying for medicines?: No Do you have trouble getting transportation to medical appointments?: No Do you have trouble paying your heating and electricity bill?: No Do you have trouble taking care of your child, family member or friend?: No Do you have trouble with day-to-day activities such as bathing, preparing meals, shopping, managing finances, etc.?: No Are you currently unemployed and looking for a job?: No Are you interested in more education?: No Please select the resources that you would like help with: None Currently or been in a relationship where the following occur: No concerns reported THRIVE Score: 0 AUDIT C Alcohol Use Questionnaire (AUDIT-C) 1. How often do you have a drink containing alcohol?: Never 3. How often do you have six or more drinks on one occasion?: Never Total Score: 0 Score Reviewed/Action Taken: Yes MOLLY-7 AMB Questionnaire MOLLY-7 Date MOLLY - 7 assessed: 10/26/24 Feeling nervous, anxious, or on edge: 0 = Not at all Not being able to stop or control worryin = Not at all Worrying too much about different things: 0 = Not at all Trouble relaxin = Not at all Being so restless that it is hard to sit still: 0 = Not at all Becoming easily annoyed or irritable: 0 = Not at all Feeling afraid as if something awful might happen: 0 = Not at all Total MOLLY-7 score (0-4 normal; 5-9 mild; 10-14 moderate; 15-21 severe): 0 Source: Developed by Drs. Gerber Vee, Rocio Ross, Roland Henriquez and colleagues, with an educational víctor from [employer]. Review of Systems Const Reports difficulty sleeping (Rx helping), Reports fatigue, Denies fever(s) and Denies headache(s) ENT Details: increased dryness inside her nose, leading to on and off nosebleeds at times Denies dysphagia, Denies dizziness, Denies otalgia, Denies headache(s), Denies neck pain, Denies odynophagia and Denies sore throat Card Denies chest pain, Denies palpitations and Denies dyspnea Resp Denies chest congestion, Denies cough and Denies dyspnea GI Denies abdominal pain, Reports constipation (on and off), Denies dysphagia, Denies heartburn, Denies diarrhea, Denies nausea, Denies odynophagia and Denies vomiting Denies difficulty voiding, Denies nocturia, Denies dysuria and Denies urinary urgency Musc Reports back pain (over the lower back), Reports arthralgias (involving multiple joints - include hips and knees) and Denies neck pain Skin/Breast Denies rash Neuro Denies dizziness and Denies headache(s) Psych Reports anxiety Endo Reports fatigue and Denies palpitations Physical exam (Primary Care) Vital Signs: Last Vital Signs Pulse 81 10/26/24 09:30 BP 118/62 10/26/24 09:30 Pulse Ox 96 10/26/24 09:30 Oxygen Delivery Method Room Air 10/26/24 09:30 BMI result Body Mass Index 33.9 Tobacco/Smoking Status: Tobacco use Status Tobacco use date assessed 10/26/24 10/26/24 09:39 Patient Tobacco Use Status Never used Tobacco 10/26/24 09:39 e-Cigarette/Vaping Use Never Used 10/26/24 09:39 PHQ-9: PHQ-9 Score PHQ-9: Total score 0 10/26/24 09:39 Depression Screening Interpretation: Negative Thrive Assessment: Date of Thrive Assessment Date Thrive assessed 10/26/24 10/26/24 09:39 Currently or been in a relationship where the following occur: No concerns reported Const General: no acute distress and alert HENMT Ears: TM's normal bilaterally and EAC's normal Throat: Yes posterior oropharynx normal and Yes tonsils normal (no TP congestion noted) Neck Neck: Yes supple and No lymphadenopathy Thyroid: Thyroid normal Resp Auscultation: clear to auscultation bilaterally, no rales and no wheezes Cardio Rate: regular rate Rhythm: regular rhythm Heart sounds: no murmurs GI Palpation (GI): Soft to palpation and nontender Auscultation: normal bowel sounds General: Yes no CVA tenderness Back/Spine/Pelvis Back: no CVA tenderness Thoracic/Lumbar Spine: lumbar spinal tenderness (mild) Skin Rashes: no rashes Extrem General: Yes no clubbing, cyanosis or edema Right lower extremity: hip/thigh Details: tenderness Location: of the hip and knee Details: tenderness; no swelling Left lower extremity: hip/thigh Details: tenderness Location: of the hip and knee Details: tenderness; no swelling Results Reviewed Results Reviewed: Laboratory Tests 09/28/24 10/17/24 10/17/24 09:50 08:32 08:34 WBC 9.9 Hgb 13.1 Hct 41.0 Plt Count 341 Sodium 142 Potassium 4.5 Creatinine 1.08 Estimated GFR 48 Fasting Glucose 141 H Hgb A1c (Clinic) 8.6 H Hemoglobin A1c % 8.2 H Calcium 9.4 AST 20 ALT 13 Triglycerides 74 Cholesterol 120 LDL Cholesterol, Calc 72 HDL Cholesterol 34 L Ur Specific [place] 1.025 Urine Protein Negative Urine Glucose (UA) >=1000 H Urine Blood Negative Urine Nitrite Negative Ur Leukocyte Esterase Small (1+) H Microalb/Creat Ratio 16.9 Coding Level of Care Code Est Pt Level 4 (81440) Diagnoses Type 2 diabetes mellitus without complication, with long-term current use of insulin E11.9; Z79.4 Diabetes mellitus type: type 2 Diabetes mellitus custodial insulin use: with custodial use Diabetes mellitus complication status: without complication Pure hypercholesterolemia E78.00 Benign essential hypertension I10 GERD without esophagitis K21.9 Hyperparathyroidism E21.3 Constipation, unspecified constipation type K59.00 Constipation type: unspecified constipation type Nasal dryness J34.89 Overactive bladder N32.81 Arthralgia, unspecified joint M25.50 Joint pain location: unspecified Insomnia, unspecified type G47.00 Insomnia type: unspecified Anxiety F41.9 Obesity (BMI 30-39.9) E66.9 Additional Codes PHQ-9 - 40524 - PHQ-9 Billing: Yes ([id number]) Assessment & Plan Assessment & Plan (1) Diabetes mellitus: Code(s): E11.9 - Type 2 diabetes mellitus without complications Category: Medical Qualifiers: Diabetes mellitus type: type 2 Diabetes mellitus termite exterminator insulin use: with custodial use Diabetes mellitus complication status: without complication Qualified Code(s): E11.9 - Type 2 diabetes mellitus without complications; Z79.4 - predatory animal exterminator (current) use of insulin Plan: Her HgbA1c has improved to 8.2% on her labs done last week (she was at 8.6% a few weeks ago and at 9.0% at her last visit in June 2024) - goal is at least 7.5% or less Reinforced diabetic diet Patient was previously seeing an enrollment processor based in [place] (patient does not remember doctor's name) but is now following up with [facility] Endocrinology for her diabetes Continue Ozempic 0.5 mg SQ once a week, Jardiance 25 mg Q AM and Tresiba now at 34 units Q HS Her Metformin and Humalog have both been discontinued by endocrinology a few months back Follow up with endocrinology as scheduled (2) Pure hypercholesterolemia: Code(s): E78.00 - Pure hypercholesterolemia, unspecified Category: Medical Plan: Results of her labs done last week reviewed and discussed with patient Reinforced low cholesterol diet Continue Atorvastatin 20 mg QD Will recheck her labs and fasting lipids in 4 months for follow up (3) Benign essential hypertension: Code(s): I10 - Essential (primary) hypertension Category: Medical Plan: Reinforced low sodium diet - goal is systolic BP of at least 140 to 150 mm or less Continue Enalapril 10 mg QD (4) GERD without esophagitis: Code(s): K21.9 - Gastro-esophageal reflux disease without esophagitis Category: Medical Plan: Dietary restrictions reinforced Continue Omeprazole 40 mg QD (5) Hyperparathyroidism: Code(s): E21.3 - Hyperparathyroidism, unspecified Category: Medical Plan: RESOLVED - S/P parathyroidectomy with Dr. Ferrera in [place] on 09/02/2022 She was reportedly advised by Dr. Ferrera that he will just need to see her for follow up on an as needed basis and for her to just continue seeing her enrollment processor and PCP regularly from now on for routine surveillance/follow up (6) Constipation: Code(s): K59.00 - Constipation, unspecified Category: Medical Qualifiers: Constipation type: unspecified constipation type Qualified Code(s): K59.00 - Constipation, unspecified Plan: Reinforced increased oral fluids and dietary fiber She was taking Miralax 17 gm QD in the past but stopped taking it a few months ago as she was throwing up every time she takes the Rx As she still reports (+) on and off constipation and frequent abdominal gas and bloating, will have her increase her Senna to 17.2 mg (2 x 8.6 mg) QD PRN (7) Nasal dryness: Code(s): J34.89 - Other specified disorders of nose and nasal sinuses Category: Medical Plan: Patient reports experiencing increasing dryness inside her nose (nasal mucosa) and she sometimes has nose bleeds Explained to patient that this is not uncommon in the winter due to the dry air and that having heat on inside the house compounds the dryness of her surroundings Will start her on some Saline nasal spray PRN - she is advised that if her insurance will not cover the Rx, this is something that she can get OTC with no Rx required (8) Overactive bladder: Code(s): N32.81 - Overactive bladder Category: Medical Plan: Continue Oxybutynin ER 5 mg QD States that she is still getting up to go to the bathroom about 4 times a night Will consider increasing Rx dosage if her symptoms persist/progress but due to her age, will continue on same dose for now as higher doses may result in side effects, including drowsiness which may increase her risks of injuries (9) Arthralgia: Code(s): M25.50 - Pain in unspecified joint Category: Medical Qualifiers: Joint pain location: unspecified Qualified Code(s): M25.50 - Pain in unspecified joint Plan: Continue topical Diclofenac 1% gel to apply to affected/painful areas QID PRN and Gabapentin 100 mg BID (10) Insomnia: Code(s): G47.00 - Insomnia, unspecified Category: Medical Qualifiers: Insomnia type: unspecified Qualified Code(s): G47.00 - Insomnia, unspecified Plan: Sleep hygiene reinforced Continue Triazolam 0.125 mg Q HS PRN (11) Anxiety: Code(s): F41.9 - Anxiety disorder, unspecified Category: Medical Plan: Continue Sertraline 25 mg Q AM (12) Obesity (BMI 30-39.9): Code(s): E66.9 - Obesity, unspecified Category: Medical Plan: Reinforced diet; exercise and weight loss are unrealistic due to patient's age and physical limitations Plan Follow up in 4 months Orders: Orders Complete Blood Count Auto Diff 4 Months D64.9 - Anemia, unspecified Hemoglobin A1c 4 Months E11.9 - Type 2 diabetes mellitus without complications UA CC w/rflx Micro + Cult 4 Months R30.0 - Dysuria Comprehensive Morgan. Panel Fast 4 Months E78.00 - Pure hypercholesterolemia, unspecified Lipid Panel 4 Months E78.00 - Pure hypercholesterolemia, unspecified Microalbumin, Random (w Creat) 4 Months E11.9 - Type 2 diabetes mellitus without complications Vitamin D 25-OH Total 4 Months E55.9 - Vitamin D deficiency, unspecified TSH reflex Free T4 4 Months E78.00 - Pure hypercholesterolemia, unspecified Medications: New sodium chloride 0.65% (Saline Nasal) 2 sprays intranasal QID PRN 44 mL 6RF dry nasal passages Changed From sennosides (senna) 8.6 mg PO BEDTIME 30 days PRN 30 tabs 3RF constipation To sennosides (senna) 17.2 mg (2 x 8.6 mg) PO BEDTIME 30 days PRN 60 tabs 3RF constipation
== END 2024-10-26 10:44 | disposition home or self-care (01) ==
PROVIDERS: PCP Internal Medicine; Visit Provider Internal Medicine
DX: E11.9 Type 2 diabetes mellitus without complications (principal); Z79.4 Long term (current) use of insulin; E21.3 Hyperparathyroidism, unspecified; E66.9 Obesity, unspecified; Z68.33 Body mass index [BMI] 33.0-33.9, adult; E78.00 Pure hypercholesterolemia, unspecified; I10 Essential (primary) hypertension; K21.9 Gastro-esophageal reflux disease without esophagitis; K59.00 Constipation, unspecified; J34.89 Other specified disorders of nose and nasal sinuses; N32.81 Overactive bladder; M25.50 Pain in unspecified joint; G47.00 Insomnia, unspecified

== ENCOUNTER → 2024-10-26 09:29 | Outpatient (BNVA) | payer OTHER, SELFPAY | PROVIDERS: PCP Internal Medicine; Visit Provider Internal Medicine | DX: E11.9 Type 2 diabetes mellitus without complications (principal); Z79.4 Long term (current) use of insulin; E78.00 Pure hypercholesterolemia, unspecified; I10 Essential (primary) hypertension; E21.3 Hyperparathyroidism, unspecified; K21.9 Gastro-esophageal reflux disease without esophagitis; K59.00 Constipation, unspecified; J34.89 Other specified disorders of nose and nasal sinuses; N32.81 Overactive bladder; M25.50 Pain in unspecified joint; G47.00 Insomnia, unspecified; F41.9 Anxiety disorder, unspecified; E66.9 Obesity, unspecified | CPT/HCPCS: 96127; 99212 ==

== ENCOUNTER 2024-11-30 14:18 | Outpatient (AMB) | payer OTHER, SELFPAY ==
[2024-11-30 14:22] VITALS: BP 112/74; PULSE 92; O2SAT 95; BMI 33.4
--- NOTE | 2024-11-30 14:22 | A.OFFVIS_ITS ---
Vital Signs 11/30/24 14:22 Height 4 ft 11 in Weight 165 lb 5.547 oz BMI 33.4 BP 112/74 Blood Pressure Location Rt brachial Position Sitting Pulse 92 Pulse Source Pulse Oximeter Pulse Oximetry (%) 95 Oxygen Delivery Method Room Air Intake Visit Reasons: follow up BG readings Intake Note: Patient presents today for a follow-up on Type 2 Diabetes Mellitus: Last Diabetic eye exam was on: 10/18/2024, [facility] Last Podiatry exam was on: Patient does not see a Equipment Or Machinery Cleaner Most recent HbA1c: 8.6%, 09/28/2024 Random Glucose- 169 mg/dL, Today Proof Load Mechanic Required: Yes Proof Load Mechanic Language: Network Pricing Consultant Services: Proof Load Mechanic Offered & Declined Accompanied by: Daughter Allergies No Known Allergies Allergy (Verified 11/30/24 14:23) Medication List - Last Reconciled 12/04/24 by Luana Cardona MD atorvastatin 20 mg PO DAILY 90 days blood sugar diagnostic (FreeStyle Lite Strips) As directed once a day blood-glucose meter (FreeStyle Lite Meter kit) As directed cyclobenzaprine 5 mg PO TID PRN 10 days diclofenac sodium 1% 2 grams topical QID PRN disposable gloves (Disposable Latex-Free Gloves) As directed dorzolamide-timolol 22.3-6.8 mg/mL 1 drp ophthalmic (eye) BID doxepin 3 mg PO BEDTIME PRN empagliflozin (Jardiance) 25 mg PO DAILY enalapril maleate 10 mg PO DAILY 90 days [exercise peddler As directed] flash glucose scanning reader (FreeStyle Terri 2 [place]) As directed flash glucose sensor (FreeStyle Terri 2 Sensor kit) As directed change every 14 days [Full size firm mattress As directed] gabapentin 100 mg PO BID 90 days glucagon 3 mg/actuation (Baqsimi) 3 mg intranasal ONCE ibuprofen 600 mg PO Q8H PRN incontinence pad, liner, disp To be changed 6 to 8 times a day incontinence pad, liner, disp (Pads For Women) As directed incontinence pad, liner, disp To be changed 6 to 8 times a day insulin degludec (Tresiba FlexTouch U-100 insulin) 34 units (0.34 mL) subcut BEDTIME insulin syr/ndl U100 half geoffrey (BD Insulin Syringe Ultra-Fine (half unit)) Use 4 times daily ketorolac 0.5% 0 drps ophthalmic (eye) lancets (FreeStyle Lancets) As directed once a day latanoprost 0.005% 0 drps ophthalmic (eye) netarsudil 0.02% (Rhopressa) 1 drp ophthalmic-Right BEDTIME omeprazole 40 mg PO DAILY 90 days oxybutynin chloride ER 5 mg PO DAILY 90 days pen needle, diabetic (BD Ultra-Fine Mini Pen Needle) Use as directed once a day with Tresiba semaglutide (Ozempic) 1 mg (0.75 mL) subcut QWEEK [Semi-electric hospital bed with mattress and rails As directed] sennosides (senna) 17.2 mg (2 x 8.6 mg) PO BEDTIME PRN 30 days sertraline 25 mg PO .Q AM 30 days sodium chloride 0.65% (Saline Nasal) 2 sprays intranasal QID PRN [STAIR STEPPERS As directed] triazolam 0.125 mg PO BEDTIME PRN 30 days [wipes As directed] [wipes As directed] HPI Comments Details: This is an 84 year old female with a past medical history of IDDM presenting for follow up Initially diagnosed with T2DM ~20 yrs. Saw faith in [facility] long time ago. Current regimen Ozempic 1 mg Qwkly Tresiba 34 units -increased from 30 Novolog- not taking Continue jardiance 25mg daily 09/2024-A1C 8.2% Past [id number]-mzbydrzmz but failed effectiveness. metformin 500 mg BID -she stopped this due to GI side effects Patient was prescribed Terri CGM. Did not like it. Checking fasting blood glucose once daily. Forgot her meter today Treats any low BG with OJ. No recent hypoglycemia Checks sugar after to ensure it is rising. Checks 2 hr after corrects Family history of T2DM in mother and grandmother . Follows with ophtho, eports exam is UTD. Has retinopathy and getting injections . Mild bilateral foot numbness, no pain. Not seeing podiatry Denies nephropathy, on CANDICE/ARB. Has HLD, on statin. Denies CAD. Has had diabetic education ROS CONSTITUTIONAL: Denies weight loss, fever and chills. HEENT: Denies changes in vision and hearing. RESPIRATORY: Denies SOB and cough. CV: Denies palpitations and CP GI: Denies abdominal pain, nausea, vomiting and diarrhea. : Denies dysuria and urinary frequency. MSK: Denies new myalgia and joint pain. SKIN: Denies rash and pruritus. NEUROLOGICAL: Denies headache PSYCHIATRIC: Denies recent changes in mood. PHYSICAL EXAM: GENERAL: Alert and oriented x 3. NAD EYES: EOMI. Anicteric. HENT: Moist mucous membranes. No scleral icterus. No cervical lymphadenopathy. LUNGS: Clear to auscultation bilaterally. CARDIOVASCULAR: Regular rate and rhythm. No murmur. No JVD. ABDOMEN: Soft, non-tender +bs EXTREMITIES: No edema. Non-tender. SKIN: No rashes or lesions. Warm. NEUROLOGIC: No focal neurological deficits. CN II-XII grossly intact. Normal monofilament. Intact vibratory sense PSYCHIATRIC: Cooperative. Appropriate mood and affect [facility] Medical History Hyperparathyroidism Constipation Obesity (BMI 30-39.9) Overactive bladder GERD without esophagitis Pure hypercholesterolemia Benign essential hypertension Diabetes mellitus Surgical History Status post parathyroidectomy (~09/02/22) Hx of section Status post excision of lipoma Family History Mother Diabetes mellitus Hypertension Father Hypertension Cancer Other Substance abuse Social History Housing: Apartment Alcohol intake: never Patient Tobacco Use Status: Never used Tobacco e-Cigarette/Vaping Use: Never Used Second Hand Smoke Exposure: No service: No Current occupational status: disabled Cognitive needs: Yes (walker) Hearing needs: No Vision needs: Yes Physical Exam Vital Signs: Last Vital Signs Pulse 92 11/30/24 14:22 BP 112/74 11/30/24 14:22 Pulse Ox 95 11/30/24 14:22 Oxygen Delivery Method Room Air 11/30/24 14:22 BMI result Body Mass Index 33.4 Results Reviewed Results Reviewed: Laboratory Last Values Glucose (Clinic) 169 mg/dL (60-115) H 11/30/24 14:29 Assessment & Plan Assessment & Plan (1) Diabetes mellitus: Code(s): E11.9 - Type 2 diabetes mellitus without complications Category: Medical Qualifiers: Diabetes mellitus type: type 2 Diabetes mellitus skilled nursing insulin use: with lobsterman use Diabetes mellitus complication status: without complication Qualified Code(s): E11.9 - Type 2 diabetes mellitus without complications; Z79.4 - terminologist (current) use of insulin Plan: Notes improved control Do not have readings today She will continue the tresiba 34, jardiance, ozempic and return in 7 weeks when due for A1C. She will call in the interim for hypo/hyperglycemia Coding Level of Care Code Est Pt Level 4 (65877) Diagnoses Type 2 diabetes mellitus without complication, with long-term current use of insulin E11.9; Z79.4 Diabetes mellitus type: type 2 Diabetes mellitus lobsterman insulin use: with skilled nursing use Diabetes mellitus complication status: without complication
[2024-11-30 14:34] LABS: Glucose, Whole Blood 169 mg/dL (60-115)
== END 2024-11-30 14:47 | disposition home or self-care (01) ==
PROVIDERS: PCP Internal Medicine; Visit Provider Internal Medicine
DX: E11.9 Type 2 diabetes mellitus without complications (principal); Z79.4 Long term (current) use of insulin

== ENCOUNTER → 2024-11-30 14:18 | Outpatient (BNVA) | payer OTHER, SELFPAY | PROVIDERS: PCP Internal Medicine; Visit Provider Internal Medicine | DX: E11.9 Type 2 diabetes mellitus without complications (principal); Z79.4 Long term (current) use of insulin | CPT/HCPCS: 82947; 99212 ==

== ENCOUNTER 2025-01-18 11:13 | Outpatient (AMB) | payer OTHER, SELFPAY ==
[2025-01-18 11:24] VITALS: BP 116/74; PULSE 85; O2SAT 96; BMI 33.5
--- NOTE | 2025-01-18 11:24 | A.OFFVIS_ITS ---
Vital Signs 01/18/25 11:24 Height 4 ft 11 in Weight 165 lb 12.095 oz BMI 33.5 BP 116/74 Blood Pressure Location Rt brachial Position Sitting Pulse 85 Pulse Source Pulse Oximeter Pulse Oximetry (%) 96 Oxygen Delivery Method Room Air Intake Visit Reasons: DM follow up for A1C Intake Note: Patient presents today for a follow-up on Type 2 Diabetes Mellitus: Last Diabetic eye exam was on: 10/18/2024, [facility] Last Podiatry exam was on: Patient does not see a Repairer General Most recent HbA1c: 7.5%, 01/18/2025 Random Glucose- 141 mg/dL, Today Manufacturing Mechanic Required: Yes Manufacturing Mechanic Language: Coal Miner Services: Manufacturing Mechanic Offered & Declined Manufacturing Mechanic Name: Daughter Information Interpreted: non-clinical & clinical Accompanied by: Daughter Allergies No Known Allergies Allergy (Verified 11/30/24 14:23) HPI Comments Details: This is an 84 year old female with a past medical history of IDDM presenting for follow up Initially diagnosed with T2DM ~20 yrs. Saw faith in [facility] long time ago. Current regimen Ozempic 1 mg Qwkly, missed the last two weeks, pharmacy issues Tresiba 34 units -increased from 30 Novolog- not taking Continue jardiance 25mg daily Todays A1C is 7.5%. 09/2024-A1C 8.2% Past yhlldrfjmww-Gcgnkqzlx-vyehuywya but failed effectiveness. metformin 500 mg BID -she stopped this due to GI side effects Patient was prescribed Terri CGM. Did not like it. Checking fasting blood gl ucose once daily. Forgot her meter today Treats any low BG with OJ. No recent hypoglycemia Checks sugar after to ensure it is rising. Checks 2 hr after corrects Family history of T2DM in mother and grandmother . Follows with ophtho, reports exam is UTD. Has retinopathy and getting injections . Mild bilateral foot numbness, no pain. Not seeing podiatry Denies nephropathy, on CANDICE/ARB. Has HLD, on statin. Denies CAD. Has had diabetic education ROS CONSTITUTIONAL: Denies weight loss, fever and chills. HEENT: Denies changes in vision and hearing. RESPIRATORY: Denies SOB and cough. CV: Denies palpitations and CP GI: Denies abdominal pain, nausea, vomiting and diarrhea. : Denies dysuria and urinary frequency. MSK: Denies new myalgia and joint pain. SKIN: Denies rash and pruritus. NEUROLOGICAL: Denies headache PSYCHIATRIC: Denies recent changes in mood. PHYSICAL EXAM: GENERAL: Alert and oriented x 3. NAD EYES: EOMI. Anicteric. HENT: Moist mucous membranes. No scleral icterus. No cervical lymphadenopathy. LUNGS: Clear to auscultation bilaterally. CARDIOVASCULAR: Regular rate and rhythm. No murmur. No JVD. ABDOMEN: Soft, non-tender +bs EXTREMITIES: No edema. Non-tender. SKIN: No rashes or lesions. Warm. NEUROLOGIC: No focal neurological deficits. CN II-XII grossly intact. Normal monofilament. Intact vibratory sense PSYCHIATRIC: Cooperative. Appropriate mood and affect [facility] Medical History Hyperparathyroidism Constipation Obesity (BMI 30-39.9) Overactive bladder GERD without esophagitis Pure hypercholesterolemia Benign essential hypertension Diabetes mellitus Surgical History Status post parathyroidectomy (~09/02/22) Hx of section Status post excision of lipoma Family History Mother Diabetes mellitus Hypertension Father Hypertension Cancer Other Substance abuse Social History Housing: Apartment Alcohol intake: never Patient Tobacco Use Status: Never used Tobacco e-Cigarette/Vaping Use: Never Used Second Hand Smoke Exposure: No service: No Current occupational status: disabled Cognitive needs: Yes (walker) Hearing needs: No Vision needs: Yes Physical Exam Vital Signs: Last Vital Signs Pulse 85 01/18/25 11:24 BP 116/74 01/18/25 11:24 Pulse Ox 96 01/18/25 11:24 Oxygen Delivery Method Room Air 01/18/25 11:24 BMI result Body Mass Index 33.5 Results AMB Hemoglobin A1c AMB Hemoglobin A1c 7.5 % Last Edit by MANINDER Mota on 01/18/25 11:43 Results Reviewed Results Reviewed: Laboratory Last Values Glucose (Clinic) 141 mg/dL (60-115) H 01/18/25 11:32 Assessment & Plan Assessment & Plan (1) Diabetes mellitus with hyperglycemia, with long-term current use of insulin: Code(s): E11.65 - Type 2 diabetes mellitus with hyperglycemia; Z79.4 - jail (current) use of insulin Category: Medical Qualifiers: Diabetes mellitus type: type 2 Qualified Code(s): E11.65 - Type 2 diabetes mellitus with hyperglycemia; Z79.4 - ocean transportation intermediary (current) use of insulin Plan Diabetes with improved control. No hypoglycemia. Will increase tresiba to 50 units. No other changes today She will return in 3 months of sooner as needed. Labs prior to visit Orders: Orders AMB Hemoglobin A1c Today E11.65 - Type 2 diabetes mellitus with hyperglycemia, Z79.4 - jail (current) use of insulin Comprehensive Met. Panel 3 Months E11.65 - Type 2 diabetes mellitus with hyperglycemia, Z79.4 - jail (current) use of insulin Hemoglobin A1c 3 Months E11.65 - Type 2 diabetes mellitus with hyperglycemia, Z79.4 - jail (current) use of insulin Lipid Panel 3 Months E11.65 - Type 2 diabetes mellitus with hyperglycemia, Z79.4 - jail (current) use of insulin Microalbumin, Random (w Creat) 3 Months E11.65 - Type 2 diabetes mellitus with hyperglycemia, Z79.4 - ocean transportation intermediary (current) use of insulin Medications: Changed From semaglutide (Ozempic) 1 mg (0.75 mL) subcut QWEEK 9 mL 3RF E11.65 - Type 2 diabetes mellitus with hyperglycemia, Z79.4 - ocean transportation intermediary (current) use of insulin To Ozempic (semaglutide) 1 mg (0.75 mL) subcut QWEEK 9 mL 3RF NS E11.65 - Type 2 diabetes mellitus with hyperglycemia, Z79.4 - ocean transportation intermediary (current) use of insulin Coding Level of Care Code Est Pt Level 4 (44565) Diagnoses Type 2 diabetes mellitus with hyperglycemia, with long-term current use of insulin E11.65; Z79.4 Diabetes mellitus type: type 2
[2025-01-18 11:36] LABS: Glucose, Whole Blood 141 mg/dL (60-115)
== END 2025-01-18 11:53 | disposition home or self-care (01) ==
LOC: HO.ENCR 11:14
PROVIDERS: PCP Internal Medicine; Visit Provider Internal Medicine
DX: E11.65 Type 2 diabetes mellitus with hyperglycemia (principal); Z79.4 Long term (current) use of insulin

== ENCOUNTER → 2025-01-18 11:13 | Outpatient (BNVA) | payer OTHER, SELFPAY | PROVIDERS: PCP Internal Medicine; Visit Provider Internal Medicine | DX: E11.65 Type 2 diabetes mellitus with hyperglycemia (principal); Z79.4 Long term (current) use of insulin; Z79.899 Other long term (current) drug therapy | CPT/HCPCS: 82947; 83036; 99212 ==

== ENCOUNTER 2025-02-14 08:39 | Outpatient (REF) | payer OTHER, SELFPAY ==
[2025-02-14 08:54] LABS: MANUAL DIFF FLAG NO
[2025-02-14 09:10] LABS: Basophils Percent Auto 0.4 % (0-2); Eosinophils Absolute Auto 0.2 X10*3/uL (0.0-0.4); Eosinophils Percent Auto 1.9 % (0-4); Hematocrit 40.1 % (37.0-47.0); Hemoglobin 12.8 g/dl (12.0-16.0); Imm Gran Abs Auto 0.03 X10*3/uL (0.00-0.03); Imm Gran Pct Auto 0.3 % (0.0-0.4); Lymphocytes Absolute Auto 2.7 X10*3/uL (1.2-4.9); Lymphocytes Percent Auto 28.5 % (20-40); Mean Corpuscular HGB Conc 31.9 g/dl (31.0-35.0); Mean Corpuscular Hemoglobin 27.2 pg (27.0-33.0); Mean Corpuscular Volume 85.3 fL (80.0-98.0); Mean Platelet Volume 10.6 fL (9.4-12.3); Monocytes Absolute Auto 0.5 X10*3/uL (0.1-1.2); Monocytes Percent Auto 5.5 % (2-11); Neutrophils Percent Auto 63.4 % (45-73); Platelet Count 298 X10*3/uL (160-400); Red Cell Distribution Width 16.7 % (11.0-16.0); White Blood Count 9.5 X10*3/uL (4.8-10.8)
[2025-02-14 09:21] LABS: Appearance Urine Clear; Color Urine Yellow; Glucose Urine UA >=1000 mg/dL (Negative); Leukocyte Esterase Urine Moderate (2+) (Negative); Nitrite Urine Positive (Negative); PH 7.5 (5.0-9.0); Specific Gravity - Urine 1.025 (1.005-1.025); UMIC TRIGGER UACC YES; Urine Blood Negative (Negative); Urine Ketones Negative (Negative); Urine Protein Negative (Neg-Trace)
[2025-02-14 09:22] LABS: Estimated Average Glucose 183 mg/dL
[2025-02-14 09:24] LABS: Bacteria Urine 4+ (None Seen); Hyaline Casts Urine 0-2 /LPF (0-2); RBC Urine 0-2 /HPF (0-2); UACC Culture Trigger YES; WBC Urine >50 /HPF (0-5)
[2025-02-14 09:48] LABS: Microalbum/Creatinine Ratio Ur 21.7 ug/mg cr (<30)
[2025-02-14 09:52] LABS: Alanine Aminotransferase 10 U/L (0-31); Albumin Level 3.9 g/dL (3.5-5.0); Alkaline Phosphatase 98 U/L (39-117); Anion Gap 13 (12-20); Aspartate Amino Transferase 20 U/L (5-31); Bilirubin Total 0.2 mg/dL (0.0-1.0); Blood Urea Nitrogen 17 mg/dL (9-16); Calcium 9.4 mg/dL (8.4-10.2); Carbon Dioxide 31 mmol/L (22-29); Chloride 103 mmol/L (96-108); Cholesterol 124 mg/dL (<200); Estimated Glomerular Filt Rate 57; Glucose Fasting 103 mg/dL (60-99); HDL Cholesterol 38 mg/dL (>40); LDL Cholesterol Calculated 70 mg/dL (<100); Potassium 4.8 mmol/L (3.3-5.1); Sodium 142 mmol/L (135-145); Total Protein 7.6 g/dL (6.5-8.0); Triglycerides 81 mg/dL (<150)
[2025-02-14 10:13] LABS: TSH reflex Free T4 0.89 uIU/mL (0.32-4.0); Vitamin D 25-OH Total 67.5 ng/mL (>30)
== END 2025-02-14 08:40 | disposition home or self-care (01) ==
LOC: HO.LAB 08:39
PROVIDERS: PCP Internal Medicine; Visit Provider Internal Medicine
DX: D64.9 Anemia, unspecified (principal); E55.9 Vitamin D deficiency, unspecified; E78.00 Pure hypercholesterolemia, unspecified; E11.9 Type 2 diabetes mellitus without complications; R30.0 Dysuria
CPT/HCPCS: 36415; 80053; 80061; 81001; 82043; 82306; 82570; 83036; 84443; 85025; 87086

== ENCOUNTER 2025-02-20 12:54 | Outpatient (AMB) | payer OTHER, SELFPAY ==
[2025-02-20 13:00] VITALS: BP 100/52; PULSE 81; O2SAT 98; BMI 33.8
--- NOTE | 2025-02-20 13:00 | MHC.PC.OV ---
Vital Signs 02/20/25 13:00 Height 4 ft 11 in Weight 167 lb 2 oz BMI 33.8 BP 100/52 L Blood Pressure Location Lt brachial Position Sitting Pulse 81 Pulse Source Pulse Oximeter Pulse Oximetry (%) 98 Oxygen Delivery Method Room Air Intake Visit Reasons: 4 month f/u Saw Repairer Required: No Accompanied by: Self / Same As Patient Allergies No Known Allergies Allergy (Verified 02/20/25 13:14) Medication List - Last Reconciled 02/20/25 by Rodrigo Damon MD atorvastatin 20 mg PO DAILY 90 days blood sugar diagnostic (FreeStyle Lite Strips) As directed once a day blood-glucose meter (FreeStyle Lite Meter kit) As directed cyclobenzaprine 5 mg PO TID PRN 10 days diclofenac sodium 1% 2 grams topical QID PRN disposable gloves (Disposable Latex-Free Gloves) As directed doxepin 3 mg PO BEDTIME PRN empagliflozin (Jardiance) 25 mg PO DAILY enalapril maleate 10 mg PO DAILY 90 days [exercise peddler As directed] flash glucose scanning reader (Wiener GamesStyle Terri 2 [place]) As directed flash glucose sensor (FreeStyle Terri 2 Sensor kit) As directed change every 14 days [Full size firm mattress As directed] gabapentin 100 mg PO BID 90 days glucagon 3 mg/actuation (Baqsimi) 3 mg intranasal ONCE ibuprofen 600 mg PO Q8H PRN incontinence pad, liner, disp To be changed 6 to 8 times a day incontinence pad, liner, disp (Pads For Women) As directed incontinence pad, liner, disp To be changed 6 to 8 times a day insulin degludec (Tresiba FlexTouch U-100 insulin) 50 units subcut BEDTIME insulin syr/ndl U100 half geoffrey (BD Insulin Syringe Ultra-Fine (half unit)) Use 4 times daily lancets (FreeStyle Lancets) As directed once a day omeprazole 40 mg PO DAILY 90 days oxybutynin chloride ER 5 mg PO DAILY 90 days Ozempic (semaglutide) 1 mg (0.75 mL) subcut QWEEK NS pen needle, diabetic (BD Ultra-Fine Mini Pen Needle) Use as directed once a day with Tresiba [Semi-electric hospital bed with mattress and rails As directed] sennosides (senna) 17.2 mg (2 x 8.6 mg) PO BEDTIME PRN 30 days sertraline 25 mg PO .Q AM 30 days sodium chloride 0.65% (Saline Nasal) 2 sprays intranasal QID PRN [STAIR STEPPERS As directed] triazolam 0.125 mg PO BEDTIME PRN 30 days [wipes As directed] [wipes As directed] Tobacco use date assessed: 02/20/25 Fall risk assessment: No Falls in past year Last assessed Fall Risk: 02/20/25 Dental Screening Dental Screen Date: 02/20/25 Did you have a dental visit in the last 12 months?: Yes Did you have a dental problem in the last 6 months where you did not have access to dental care?: No Was dental information given to patient?: Patient has dentist HPI 4 month f/u HPI Details Patient comes in today for her follow up visit States that she feels okay She denies any headaches or dizziness Denies any chest pains, no SOB No nausea/vomiting, no abdominal pain No change in bowel habits noted - still has some problems with constipation at times but states that her current Rx has been helping States that she will need several of her Rx refilled She had her follow up labs done last week - to discuss her results [facility] Medical History Hyperparathyroidism Constipation Obesity (BMI 30-39.9) Overactive bladder GERD without esophagitis Pure hypercholesterolemia Benign essential hypertension Diabetes mellitus Surgical History Status post parathyroidectomy (~09/02/22) Hx of section Status post excision of lipoma Family History Mother Diabetes mellitus Hypertension Father Hypertension Cancer Other Substance abuse Social History Housing: Apartment Alcohol intake: never Patient Tobacco Use Status: Never used Tobacco e-Cigarette/Vaping Use: Never Used Second Hand Smoke Exposure: No service: No Current occupational status: disabled Cognitive needs: Yes (walker) Hearing needs: No Vision needs: Yes Questionnaire PHQ-9 Over the last 2 weeks, how often have you been bothered by any of the following problems? 1. Little interest or pleasure in doing things: not at all 2. Feeling down, depressed, or hopeless: not at all 3. Trouble falling or staying asleep, or sleeping too much: not at all 4. Feeling tired or having little energy: not at all 5. Poor appetite or overeating: not at all 6. Feeling bad about yourself - or that you are a failure or have let yourself or your family down: not at all 7. Trouble concentrating on things, such as reading the newspaper or watching television: not at all 8. Moving or speaking so slowly that other people could have noticed. Or the opposite - being so fidgety or restless that you have been moving around a lot more than usual: not at all 9. Thoughts that you would be better off or of hurting yourself in some way: not at all Total score: 0 Depression Screening Interpretation: Negative Depression Screening Done: Yes 84069 - PHQ-9 Billing: Yes Source: Developed by Drs. Gerber Vee, Rocio Ross, Roland Henriquez and colleagues, with an educational víctor from [employer]. Thrive Questionnaire Date Thrive assessed: 02/20/25 I am a: Patient What is your living situation today?: I have a steady place to live Within the past 12 months, did the food you bought not last and you didn't have the money to get more?: Never true Within the past 12 months, did you worry whether your food would run out before you got money to buy more?: Never true Do you have trouble paying for medicines?: No Do you have trouble getting transportation to medical appointments?: No Do you have trouble paying your heating and electricity bill?: No Do you have trouble taking care of your child, family member or friend?: No Do you have trouble with day-to-day activities such as bathing, preparing meals, shopping, managing finances, etc.?: No Are you currently unemployed and looking for a job?: No Are you interested in more education?: No Please select the resources that you would like help with: None Currently or been in a relationship where the following occur: No concerns reported THRIVE Score: 0 AUDIT C Alcohol Use Questionnaire (AUDIT-C) 1. How often do you have a drink containing alcohol?: Never 3. How often do you have six or more drinks on one occasion?: Never Total Score: 0 Score Reviewed/Action Taken: Yes MOLLY-7 AMB Questionnaire MOLLY-7 Date MOLLY - 7 assessed: 02/20/25 Feeling nervous, anxious, or on edge: 0 = Not at all Not being able to stop or control worryin = Not at all Worrying too much about different things: 0 = Not at all Trouble relaxin = Not at all Being so restless that it is hard to sit still: 0 = Not at all Becoming easily annoyed or irritable: 0 = Not at all Feeling afraid as if something awful might happen: 0 = Not at all Total MOLLY-7 score (0-4 normal; 5-9 mild; 10-14 moderate; 15-21 severe): 0 Source: Developed by Drs. Gerber Vee, Rocio Ross, Roland Henriquez and colleagues, with an educational víctor from [employer]. Review of Systems Const Reports difficulty sleeping (Rx helping), Reports fatigue, Denies fever(s) and Denies headache(s) ENT Denies dysphagia, Denies dizziness, Denies otalgia, Denies headache(s), Denies neck pain, Denies odynophagia and Denies sore throat Card Denies chest pain, Denies palpitations and Denies dyspnea Resp Denies chest congestion, Denies cough and Denies dyspnea GI Denies abdominal pain, Reports constipation (on and off), Denies dysphagia, Denies heartburn, Denies diarrhea, Denies nausea, Denies odynophagia and Denies vomiting Denies difficulty voiding, Denies nocturia, Denies dysuria and Denies urinary urgency Musc Reports back pain (over the lower back), Reports arthralgias (involving multiple joints - include hips and knees) and Denies neck pain Skin/Breast Denies rash Neuro Denies dizziness and Denies headache(s) Psych Reports anxiety Endo Reports fatigue and Denies palpitations Physical exam (Primary Care) Vital Signs: Last Vital Signs Pulse 81 02/20/25 13:00 BP 100/52 L 02/20/25 13:00 Pulse Ox 98 02/20/25 13:00 Oxygen Delivery Method Room Air 02/20/25 13:00 BMI result Body Mass Index 33.8 Tobacco/Smoking Status: Tobacco use Status Tobacco use date assessed 02/20/25 02/20/25 13:13 Patient Tobacco Use Status Never used Tobacco 02/20/25 13:13 e-Cigarette/Vaping Use Never Used 02/20/25 13:13 PHQ-9: PHQ-9 Score PHQ-9: Total score 0 02/20/25 13:13 Depression Screening Interpretation: Negative Thrive Assessment: Date of Thrive Assessment Date Thrive assessed 02/20/25 02/20/25 13:13 Currently or been in a relationship where the following occur: No concerns reported Const General: no acute distress and alert HENMT Ears: TM's normal bilaterally and EAC's normal Throat: Yes posterior oropharynx normal and Yes tonsils normal (no TP congestion noted) Neck Neck: Yes supple and No lymphadenopathy Thyroid: Thyroid normal Resp Auscultation: clear to auscultation bilaterally, no rales and no wheezes Cardio Rate: regular rate Rhythm: regular rhythm Heart sounds: no murmurs GI Palpation (GI): Soft to palpation and nontender Auscultation: normal bowel sounds General: Yes no CVA tenderness Back/Spine/Pelvis Back: no CVA tenderness Thoracic/Lumbar Spine: lumbar spinal tenderness (mild) Skin Rashes: no rashes Extrem General: Yes no clubbing, cyanosis or edema Right lower extremity: hip/thigh Details: tenderness Location: of the hip and knee Details: tenderness; no swelling Left lower extremity: hip/thigh Details: tenderness Location: of the hip and knee Details: tenderness; no swelling Results Reviewed Results Reviewed: Laboratory Tests 01/18/25 02/14/25 02/14/25 11:42 08:46 08:53 WBC 9.5 Hgb 12.8 Hct 40.1 Plt Count 298 Sodium 142 Potassium 4.8 Creatinine 0.93 Estimated GFR 57 Fasting Glucose 103 H Hgb A1c (Clinic) 7.5 H Hemoglobin A1c % 8.0 H Calcium 9.4 AST 20 ALT 10 Triglycerides 81 Cholesterol 124 LDL Cholesterol, Calc 70 HDL Cholesterol 38 L 25-OH Vitamin D Total 67.5 TSH 0.89 Urine pH 7.5 Ur Specific Harrison 1.025 Urine Protein Negative Urine Glucose (UA) >=1000 H Urine Blood Negative Urine Nitrite Positive H Ur Leukocyte Esterase Moderate (2+) H Microalb/Creat Ratio 21.7 Coding Level of Care Code Est Pt Level 4 (91491) Diagnoses Type 2 diabetes mellitus without complication, with long-term current use of insulin E11.9; Z79.4 Diabetes mellitus type: type 2 Diabetes mellitus exterminator helper insulin use: with longterm use Diabetes mellitus complication status: without complication Pure hypercholesterolemia E78.00 Benign essential hypertension I10 GERD without esophagitis K21.9 Hyperparathyroidism E21.3 Constipation, unspecified constipation type K59.00 Constipation type: unspecified constipation type Overactive bladder N32.81 Arthralgia, unspecified joint M25.50 Joint pain location: unspecified Insomnia, unspecified type G47.00 Insomnia type: unspecified Anxiety F41.9 Obesity (BMI 30-39.9) E66.9 Additional Codes PHQ-9 - 94852 - PHQ-9 Billing: Yes ([id number]) Assessment & Plan Assessment & Plan (1) Diabetes mellitus: Code(s): E11.9 - Type 2 diabetes mellitus without complications Category: Medical Qualifiers: Diabetes mellitus type: type 2 Diabetes mellitus exterminator helper insulin use: with longterm use Diabetes mellitus complication status: without complication Qualified Code(s): E11.9 - Type 2 diabetes mellitus without complications; Z79.4 - senior living (current) use of insulin Plan: Her in-office HgbA1c has improved to 7.5% while at the endocrinology office back on 01/18/2025 but it is at 8.0% on her labs done last week - goal is at least 7.5% or less Reinforced diabetic diet Patient was previously seeing an educational paraprofessional based in [place] (patient does not remember doctor's name) but is now following up with [facility] Endocrinology for her diabetes Continue Ozempic 0.5 mg SQ once a week, Jardiance 25 mg Q AM and Tresiba now at 50 units Q HS Her Metformin and Humalog have both been discontinued by endocrinology months ago Follow up with endocrinology as scheduled (2) Pure hypercholesterolemia: Code(s): E78.00 - Pure hypercholesterolemia, unspecified Category: Medical Plan: Results of her labs done last week reviewed and discussed with patient Reinforced low cholesterol diet Continue Atorvastatin 20 mg QD Will recheck her labs and fasting lipids in 4 months for follow up (3) Benign essential hypertension: Code(s): I10 - Essential (primary) hypertension Category: Medical Plan: Reinforced low sodium diet - goal is systolic BP of at least 140 to 150 mm or less Continue Enalapril 10 mg QD (4) GERD without esophagitis: Code(s): K21.9 - Gastro-esophageal reflux disease without esophagitis Category: Medical Plan: Dietary restrictions reinforced Continue Omeprazole 40 mg QD (5) Hyperparathyroidism: Code(s): E21.3 - Hyperparathyroidism, unspecified Category: Medical Plan: RESOLVED - S/P parathyroidectomy with Dr. Ferrera in [place] on 09/02/2022 She was reportedly advised by Dr. Ferrera that he will just need to see her for follow up on an as needed basis and for her to just continue seeing her educational paraprofessional and PCP regularly from now on for routine surveillance/follow up (6) Constipation: Code(s): K59.00 - Constipation, unspecified Category: Medical Qualifiers: Constipation type: unspecified constipation type Qualified Code(s): K59.00 - Constipation, unspecified Plan: Reinforced increased oral fluids and dietary fiber She was taking Miralax 17 gm QD in the past but stopped taking it a few months ago as she was throwing up every time she takes the Rx Continue Senna to 17.2 mg (2 x 8.6 mg) QD PRN - states that this has been helping her a lot (7) Overactive bladder: Code(s): N32.81 - Overactive bladder Category: Medical Plan: Continue Oxybutynin ER 5 mg QD States that she is still getting up to go to the bathroom about 4 times a night Will consider increasing Rx dosage if her symptoms persist/progress but due to her age, will continue on same dose for now as higher doses may result in side effects, including drowsiness (8) Arthralgia: Code(s): M25.50 - Pain in unspecified joint Category: Medical Qualifiers: Joint pain location: unspecified Qualified Code(s): M25.50 - Pain in unspecified joint Plan: Continue topical Diclofenac 1% gel to apply to affected/painful areas QID PRN and Gabapentin 100 mg BID (9) Insomnia: Code(s): G47.00 - Insomnia, unspecified Category: Medical Qualifiers: Insomnia type: unspecified Qualified Code(s): G47.00 - Insomnia, unspecified Plan: Sleep hygiene reinforced Continue Triazolam 0.125 mg Q HS PRN (10) Anxiety: Code(s): F41.9 - Anxiety disorder, unspecified Category: Medical Plan: Continue Sertraline 25 mg Q AM (11) Obesity (BMI 30-39.9): Code(s): E66.9 - Obesity, unspecified Category: Medical Plan: Reinforced diet; exercise and weight loss are unrealistic due to patient's age and physical limitations Plan Follow up in 4 months Orders: Orders Hemoglobin A1c 4 Months E11.9 - Type 2 diabetes mellitus without complications Complete Blood Count Auto Diff 4 Months D64.9 - Anemia, unspecified Lipid Panel 4 Months E78.00 - Pure hypercholesterolemia, unspecified UA CC w/rflx Micro + Cult 4 Months R30.0 - Dysuria Vitamin D 25-OH Total 4 Months E55.9 - Vitamin D deficiency, unspecified Comprehensive [place]. Panel Fast 4 Months E78.00 - Pure hypercholesterolemia, unspecified Microalbumin, Random (w Creat) 4 Months E11.9 - Type 2 diabetes mellitus without complications TSH reflex Free T4 4 Months E78.00 - Pure hypercholesterolemia, unspecified Vitamin B12 and Folate 4 Months E53.8 - Deficiency of other specified B group vitamins Medications: Changed From insulin degludec (Tresiba FlexTouch U-100 insulin) 50 units subcut BEDTIME To insulin degludec (Tresiba FlexTouch U-100 insulin) 50 units (0.5 mL) subcut BEDTIME 90 days 45 mL 1RF Refilled empagliflozin (Jardiance) 25 mg PO DAILY 90 tabs 3RF sertraline 25 mg PO .Q AM 30 days 30 tabs 1RF enalapril maleate 10 mg PO DAILY 90 days 90 tabs 1RF I10 - Essential (primary) hypertension atorvastatin 20 mg PO DAILY 90 days 90 tabs 1RF Ozempic (semaglutide) 1 mg (0.75 mL) subcut QWEEK 9 mL 3RF NS E11.65 - Type 2 diabetes mellitus with hyperglycemia, Z79.4 - remote computer terminal operator (current) use of insulin
== END 2025-02-20 13:30 | disposition home or self-care (01) ==
LOC: HO.HMCH 12:54
PROVIDERS: PCP Internal Medicine; Visit Provider Internal Medicine
DX: E11.9 Type 2 diabetes mellitus without complications (principal); Z79.4 Long term (current) use of insulin; E66.9 Obesity, unspecified; Z68.33 Body mass index [BMI] 33.0-33.9, adult; E78.00 Pure hypercholesterolemia, unspecified; I10 Essential (primary) hypertension; K21.9 Gastro-esophageal reflux disease without esophagitis; E21.3 Hyperparathyroidism, unspecified; K59.00 Constipation, unspecified; N32.81 Overactive bladder; M25.50 Pain in unspecified joint; G47.00 Insomnia, unspecified

== ENCOUNTER → 2025-02-20 12:54 | Outpatient (BNVA) | payer OTHER, SELFPAY | PROVIDERS: PCP Internal Medicine; Visit Provider Internal Medicine | DX: I10 Essential (primary) hypertension (principal); E78.00 Pure hypercholesterolemia, unspecified; K21.9 Gastro-esophageal reflux disease without esophagitis; E21.3 Hyperparathyroidism, unspecified; K59.00 Constipation, unspecified; N32.81 Overactive bladder; M25.50 Pain in unspecified joint; G47.00 Insomnia, unspecified; F41.9 Anxiety disorder, unspecified; E66.9 Obesity, unspecified; R30.0 Dysuria; E55.9 Vitamin D deficiency, unspecified; E53.8 Deficiency of other specified B group vitamins; E11.65 Type 2 diabetes mellitus with hyperglycemia; Z79.4 Long term (current) use of insulin; Z68.33 Body mass index [BMI] 33.0-33.9, adult | CPT/HCPCS: 96127; 99212 ==

== ENCOUNTER 2025-04-19 11:15 | Outpatient (AMB) | payer OTHER, SELFPAY ==
[2025-04-19 11:19] VITALS: BP 98/58; PULSE 86; O2SAT 96; BMI 33.8
--- NOTE | 2025-04-19 11:19 | MHC.OFFVIS ---
Vital Signs 04/19/25 11:19 Height 4 ft 11 in Weight 167 lb 8.821 oz BMI 33.8 BP 98/58 L Blood Pressure Location Rt brachial Position Sitting Pulse 86 Pulse Source Pulse Oximeter Pulse Oximetry (%) 96 Oxygen Delivery Method Room Air Intake Visit Reasons: DM Intake Note: Patient presents today for a follow-up on Type 2 Diabetes Mellitus: Last Diabetic eye exam was on: 10/18/2024, [facility] Last Podiatry exam was on: Patient does not see a Information Resources Director Most recent HbA1c: 8.0%, 02/14/2025 Random Glucose- 111 mg/dL, Today Subassembly Supervisor Required: Yes Subassembly Supervisor Language: Utility Sales Representative Services: Subassembly Supervisor Offered & Declined Accompanied by: Daughter Allergies No Known Allergies Allergy (Verified 04/19/25 11:28) HPI Comments Details: This is an 84 year old female with a past medical history of IDDM presenting for follow up Initially diagnosed with T2DM ~20 yrs. Saw faith in [facility] long time ago. Current regimen Ozempic 1 mg Qwkly. She had not increased to 1 yet Tresiba 34 units -increased from 30 Novolog- not taking Stopped jardiance 25mg daily due to recurrent urinary symptoms. Presently with vaginal itching. no fevers. increase urination, denies dysuria. A1c end of January 8.0 %. 09/2024-A1C 8.2% Past jpcjrryrfht-Injvowvvj-mdwovzyas but failed effectiveness. metformin 500 mg BID -she stopped this due to GI side effects Patient was prescribed Terri CGM. Did not like it. Checking fasting blood glucose once daily. Forgot her meter today Treats any low BG with OJ. No recent hypoglycemia Checks sugar after to ensure it is rising. Checks 2 hr after corrects Family history of T2DM in mother and grandmother . Follows with ophtho, reports exam is UTD. Has retinopathy and getting injections . Mild bilateral foot numbness, no pain. Not seeing podiatry Denies nephropathy, on CANDICE/ARB. Has HLD, on statin. Denies CAD. Has had diabetic education ROS CONSTITUTIONAL: Denies weight loss, fever and chills. HEENT: Denies changes in vision and hearing. RESPIRATORY: Denies SOB and cough. CV: Denies palpitations and CP GI: Denies abdominal pain, nausea, vomiting and diarrhea. : Denies dysuria and urinary frequency. MSK: Denies new myalgia and joint pain. SKIN: Denies rash and pruritus. NEUROLOGICAL: Denies headache PSYCHIATRIC: Denies recent changes in mood. PHYSICAL EXAM: GENERAL: Alert and oriented x 3. NAD EYES: EOMI. Anicteric. HENT: Moist mucous membranes. No scleral icterus. No cervical lymphadenopathy. LUNGS: Clear to auscultation bilaterally. CARDIOVASCULAR: Regular rate and rhythm. No murmur. No JVD. ABDOMEN: Soft, non-tender +bs EXTREMITIES: No edema. Non-tender. SKIN: No rashes or lesions. Warm. NEUROLOGIC: No focal neurological deficits. CN II-XII grossly intact. Normal monofilament. Intact vibratory sense PSYCHIATRIC: Cooperative. Appropriate mood and affect [facility] Medical History Hyperparathyroidism Constipation Obesity (BMI 30-39.9) Overactive bladder GERD without esophagitis Pure hypercholesterolemia Benign essential hypertension Diabetes mellitus Surgical History Status post parathyroidectomy (~09/02/22) Hx of section Status post excision of lipoma Family History Mother Diabetes mellitus Hypertension Father Hypertension Cancer Other Substance abuse Social History Housing: Apartment Alcohol intake: never Patient Tobacco Use Status: Never used Tobacco e-Cigarette/Vaping Use: Never Used Second Hand Smoke Exposure: No service: No Current occupational status: disabled Cognitive needs: Yes (walker) Hearing needs: No Vision needs: Yes Physical Exam Vital Signs: Last Vital Signs Pulse 86 04/19/25 11:19 BP 98/58 L 04/19/25 11:19 Pulse Ox 96 04/19/25 11:19 Oxygen Delivery Method Room Air 04/19/25 11:19 BMI result Body Mass Index 33.8 Results Reviewed Results Reviewed: Laboratory Last Values Glucose (Clinic) 111 mg/dL (60-115) 04/19/25 11:26 Assessment & Plan Assessment & Plan (1) Diabetes mellitus: Code(s): E11.9 - Type 2 diabetes mellitus without complications Category: Medical Qualifiers: Diabetes mellitus type: type 2 Diabetes mellitus retirement insulin use: with retirement use Diabetes mellitus complication status: without complication Qualified Code(s): E11.9 - Type 2 diabetes mellitus without complications; Z79.4 - residential (current) use of insulin (2) Diabetes mellitus with hyperglycemia, with long-term current use of insulin: Code(s): E11.65 - Type 2 diabetes mellitus with hyperglycemia; Z79.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 Increase ozempic to the 1mg Continue 34 units once daily insulin. Start fluconazole. Check UA/Ucx Orders: Orders UA ClnCatch+Micro w/rflx Cult 04/19/25 R30.0 - Dysuria Medications: New fluconazole may repeat second dose 72 hrs after first dose if symptoms persist 150 mg PO Q3D 2 tabs 0RF 2 doses lactulose 20 grams (30 mL) PO BID PRN 473 mL 1RF no BM x 72 hours Changed From insulin degludec (Tresiba FlexTouch U-100 insulin) 50 units (0.5 mL) subcut BEDTIME 90 days 45 mL 1RF To insulin degludec (Tresiba FlexTouch U-100 insulin) 34 units (0.34 mL) subcut BEDTIME 30.6 mL 1RF 90 days Discontinued empagliflozin (Jardiance) Discontinued Reason: Doctor's Order 25 mg PO DAILY 90 tabs 3RF Coding Level of Care Code Est Pt Level 4 (11919) Complex EM visit Add On G2211 Diagnoses Type 2 diabetes mellitus without complication, with long-term current use of insulin E11.9; Z79.4 Diabetes mellitus type: type 2 Diabetes mellitus extermination supervisor insulin use: with extermination supervisor use Diabetes mellitus complication status: without complication Type 2 diabetes mellitus with hyperglycemia, with long-term current use of insulin E11.65; Z79.4 Diabetes mellitus type: type 2
[2025-04-19 11:29] LABS: Glucose, Whole Blood 111 mg/dL (60-115)
--- OUTSIDE RECORDS SUMMARY | 2025-04-19 12:19 | XMS_ITS | Patient Health Record ---
Author Organization [facility] Address [address] [place] [address] Care Team Providers Care Urologic Surgeon Name Role Phone ANASTASIIA SCOTT Primary Care Provider Unavailabl e Reason For Referral No Information Medications Medication SIG (Take, Route, Frequency, Duration) Notes Start Date End Date Status NovoLOG 100 UNIT/ML 12 unit Subcutaneous TID Active Atorvastatin Calcium 20 MG 1 tablet Orally Once a day; Duration: 30 day(s) Active Enalapril Maleate 10 MG Orally Once a day Active oxyBUTYnin Chloride 5 MG 1 tablet Orally Once a day Active Tresiba FlexTouch 100 UNIT/ML 30 units Subcutaneous Active metFORMIN HCl 1000 MG 1 tablet with a meal Orally BID Active glipiZIDE *please review f or potential update for e-prescription and drug interaction check* Active Gabapentin *please review f or potential update for e-prescription and drug interaction check* Unknown Omeprazole 40 MG 1 capsule 30 minutes before morning meal Orally Once a day Active Cinacalcet HCl 30 MG 1 tablet with food or after a meal Orally Once a day; Duration: 90 days 12/13/2019 Active Vitamin B-12 *please review f or potential update for e-prescription and drug interaction check* Active Flonase *please review f or potential update for e-prescription and drug interaction check* Active Problems Problem Type SNOMED Code ICD Code Onset Dates Problem Status W/U Status Risk Notes Problem Hypercalcemia (07096408) Hypercalcemia (E83.52) Active confirmed parathyroid vs. non-parathyroi d dependant hypercalcemia Plan Of Treatment Pending Test Test Name Order Date PTH, INTACT AND CALCIUM 06/16/2019 PHOSPHATE ( PHOSPHORUS) 06/16/2019 Calcium, Serum 03/02/2019 Calcium, 24Hr Urine 01/21/2019 CBC With Differential/Platelet 9 Ca+PTH Intact 02/23/2020 Vitamin D, 25-Hydroxy 02/23/2020 Comp. Metabolic Panel (14) 02/23/2020 Comp. Metabolic Panel (14) 03/02/2019 Chest X-ray PA and lateral 03/02/2019 Insurance Providers Payer Name Payer Address Payer Phone Subscriber Number Group Number Insured Name Patient Relationship to Insured Coverage Start Date Coverage End Date [facility] [address] [address] [place] [phone] [id number] MELONY BULLARD Self - patient is the insured Medical (General) History Medical History History ICD Code diabetes mellitus cataracts
== END 2025-04-19 11:44 | disposition home or self-care (01) ==
LOC: HO.ENCR 11:16
PROVIDERS: PCP Internal Medicine; Visit Provider Internal Medicine
DX: E11.9 Type 2 diabetes mellitus without complications (principal); Z79.4 Long term (current) use of insulin; E11.65 Type 2 diabetes mellitus with hyperglycemia

== ENCOUNTER → 2025-04-19 11:15 | Outpatient (BNVA) | payer OTHER, SELFPAY | PROVIDERS: PCP Internal Medicine; Visit Provider Internal Medicine | DX: E11.65 Type 2 diabetes mellitus with hyperglycemia (principal); Z79.4 Long term (current) use of insulin | CPT/HCPCS: 82947; 99212 ==

== ENCOUNTER 2025-06-14 10:43 | Outpatient (AMB) | payer OTHER, SELFPAY ==
--- NOTE | 2025-06-14 10:59 | A.OFFVIS_ITS ---
Intake Visit Reasons: DM Allergies No Known Allergies Allergy (Verified 04/19/25 11:28) HPI Comments Details: This is an 84 year old female with a past medical history of IDDM presenting for follow up Initially diagnosed with T2DM ~[address] faith in [facility] long time ago. Current regimen Ozempic 1 mg Qwkly. (increased following last visit) Tresiba 34 units -increased from 30 Novolog- not taking Past medications-jardiance 25mg daily due to recurrent urinary symptoms. Trulicity-tolerated but failed effectiveness. metformin 500 mg BID -she stopped this due to GI side effects A1c 8.0 % from 8.2% Patient was prescribed Terri CGM. Did not like it. Checking fasting blood glucose once daily. Forgot her meter today Treats any low BG with OJ. No recent hypoglycemia Checks sugar after to ensure it is rising. Checks 2 hr after corrects Family history of T2DM in mother and grandmother . Follows with ophtho, reports exam is UTD. Has retinopathy and getting injections . Mild bilateral foot numbness, no pain. Not seeing podiatry Denies nephropathy, on CANDICE/ARB. Has HLD, on statin. Denies CAD. Has had diabetic education ROS CONSTITUTIONAL: Denies weight loss, fever and chills. HEENT: Denies changes in vision and hearing. RESPIRATORY: Denies SOB and cough. CV: Denies palpitations and CP GI: Denies abdominal pain, nausea, vomiting and diarrhea. : Denies dysuria and urinary frequency. MSK: Denies new myalgia and joint pain. SKIN: Denies rash and pruritus. NEUROLOGICAL: Denies headache PSYCHIATRIC: Denies recent changes in mood. PHYSICAL EXAM: GENERAL: Alert and oriented x 3. NAD EYES: EOMI. Anicteric. HENT: Moist mucous membranes. No scleral icterus. No cervical lymphadenopathy. LUNGS: Clear to auscultation bilaterally. CARDIOVASCULAR: Regular rate and rhythm. No murmur. No JVD. ABDOMEN: Soft, non-tender +bs EXTREMITIES: No edema. Non-tender. SKIN: No rashes or lesions. Warm. NEUROLOGIC: No focal neurological deficits. CN II-XII grossly intact. Normal monofilament. Intact vibratory sense PSYCHIATRIC: Cooperative. Appropriate mood and affect [facility] Medical History Hyperparathyroidism Constipation Obesity (BMI 30-39.9) Overactive bladder GERD without esophagitis Pure hypercholesterolemia Benign essential hypertension Diabetes mellitus Surgical History Status post parathyroidectomy (~09/02/22) Hx of section Status post excision of lipoma Family History Mother Diabetes mellitus Hypertension Father Hypertension Cancer Other Substance abuse Social History Housing: Apartment Alcohol intake: never Patient Tobacco Use Status: Never used Tobacco e-Cigarette/Vaping Use: Never Used Second Hand Smoke Exposure: No service: No Current occupational status: disabled Cognitive needs: Yes (walker) Hearing needs: No Vision needs: Yes Coding
--- NOTE | 2025-06-14 11:20 | MHC.OFFVIS ---
Vital Signs 06/14/25 11:21 Height 4 ft 11 in Weight 169 lb 1.513 oz BMI 34.1 BP 110/56 L Blood Pressure Location Lt brachial Position Sitting Pulse 77 Pulse Source Pulse Oximeter Pulse Oximetry (%) 97 Oxygen Delivery Method Room Air Intake Visit Reasons: DM Intake Note: Patient present today for Type 2 Diabetes Mellitus Last Diabetic eye exam: Last exam was early summer 2024 Last Podiatry Visit: Doesn't have one Random Glucose: 145 mg/dl HgA1C: 8.0% Residential Building Inspector Required: Yes Residential Building Inspector Language: Cpa Tax Services: Residential Building Inspector Offered & Declined Accompanied by: Daughter Allergies No Known Allergies Allergy (Verified 06/14/25 11:26) Medication List - Last Reconciled 06/14/25 by Luana Cardona MD atorvastatin 20 mg PO DAILY 90 days blood sugar diagnostic (FreeStyle Lite Strips) As directed once a day cyclobenzaprine 5 mg PO TID PRN 10 days diclofenac sodium 1% 2 grams topical QID PRN disposable gloves (Disposable Latex-Free Gloves) As directed doxepin 3 mg PO BEDTIME PRN enalapril maleate 10 mg PO DAILY 90 days [exercise peddler As directed] fluconazole 150 mg PO Q3D 2 doses [Full size firm mattress As directed] gabapentin 100 mg PO BID PRN glucagon 3 mg/actuation (Baqsimi) 3 mg intranasal ONCE ibuprofen 600 mg PO Q8H PRN incontinence pad, liner, disp To be changed 6 to 8 times a day insulin degludec (Tresiba FlexTouch U-100 insulin) 34 units (0.34 mL) subcut BEDTIME 90 days insulin syr/ndl U100 half geoffrey (BD Insulin Syringe Ultra-Fine (half unit)) Use 4 times daily lactulose 20 grams (30 mL) PO BID PRN lancets (FreeStyle Lancets) As directed once a day omeprazole 40 mg PO DAILY 90 days oxybutynin chloride ER 5 mg PO DAILY 90 days Ozempic (semaglutide) 1 mg (0.75 mL) subcut QWEEK NS pen needle, diabetic (BD Ultra-Fine Mini Pen Needle) Use as directed once a day with Tresiba [Semi-electric hospital bed with mattress and rails As directed] sennosides (senna) 17.2 mg (2 x 8.6 mg) PO BEDTIME PRN 30 days sertraline 25 mg PO .Q AM 30 days sodium chloride 0.65% (Saline Nasal) 2 sprays intranasal QID PRN [STAIR STEPPERS As directed] triazolam 0.125 mg PO BEDTIME PRN 30 days [wipes As directed] HPI Comments Details: This is an 84 year old female with a past medical history of IDDM presenting for follow up Initially diagnosed with T2DM ~20 yrs. Saw faith in [facility] long time ago. Current regimen Ozempic 1 mg Qwkly. (increased following last visit) Tresiba 34 units Novolog- not taking Past medications-jardiance 25mg daily due to recurrent urinary symptoms. Trulicity-tolerated but failed effectiveness. metformin 500 mg BID -she stopped this due to GI side effects A1c 8.0 % from 8.0% from 8.2% Range 107-190 fasting traditional glucometer No hypoglycemia Patient was prescribed Terri CGM. Did not like it. Treats any low BG with OJ. No recent hypoglycemia. Checks sugar after to ensure it is rising. Family history of T2DM in mother and grandmother. Follows with ophtho-eye exam was early summer. Has retinopathy and getting injections . Mild bilateral foot numbness, no pain. Not seeing podiatry Denies nephropathy, on CANDICE/ARB. Has HLD, on statin. Denies CAD. Has had diabetic education ROS CONSTITUTIONAL: Denies weight loss, fever and chills. HEENT: Denies changes in vision and hearing. RESPIRATORY: Denies SOB and cough. CV: Denies palpitations and CP GI: Denies abdominal pain, nausea, vomiting and diarrhea. : Denies dysuria and urinary frequency. MSK: Denies new myalgia and joint pain. SKIN: Denies rash and pruritus. NEUROLOGICAL: Denies headache PSYCHIATRIC: Denies recent changes in mood. PHYSICAL EXAM: GENERAL: Alert and oriented x 3. NAD EYES: EOMI. Anicteric. HENT: Moist mucous membranes. No scleral icterus. No cervical lymphadenopathy. LUNGS: Clear to auscultation bilaterally. CARDIOVASCULAR: Regular rate and rhythm. No murmur. No JVD. ABDOMEN: Soft, non-tender +bs EXTREMITIES: No edema. Non-tender. SKIN: No rashes or lesions. Warm. NEUROLOGIC: No focal neurological deficits. CN II-XII grossly intact. Normal monofilament. Intact vibratory sense PSYCHIATRIC: Cooperative. Appropriate mood and affect [facility] Medical History Hyperparathyroidism Constipation Obesity (BMI 30-39.9) Overactive bladder GERD without esophagitis Pure hypercholesterolemia Benign essential hypertension Diabetes mellitus Surgical History Status post parathyroidectomy (~09/02/22) Hx of section Status post excision of lipoma Family History Mother Diabetes mellitus Hypertension Father Hypertension Cancer Other Substance abuse Social History Housing: Apartment Alcohol intake: never Patient Tobacco Use Status: Never used Tobacco e-Cigarette/Vaping Use: Never Used Second Hand Smoke Exposure: No service: No Current occupational status: disabled Cognitive needs: Yes (walker) Hearing needs: No Vision needs: Yes Physical Exam Vital Signs: Last Vital Signs Pulse 77 06/14/25 11:21 BP 110/56 L 06/14/25 11:21 Pulse Ox 97 06/14/25 11:21 Oxygen Delivery Method Room Air 06/14/25 11:21 BMI result Body Mass Index 34.1 Results AMB Hemoglobin A1c AMB Hemoglobin A1c 8.0 % Last Edit by MANINDER Guzman on 06/14/25 11:39 Results Reviewed Results Reviewed: Laboratory Last Values Glucose (Clinic) 145 mg/dL (60-115) H 06/14/25 11:29 Assessment & Plan Assessment & Plan (1) Diabetes mellitus with hyperglycemia, with long-term current use of insulin: Code(s): E11.65 - Type 2 diabetes mellitus with hyperglycemia; Z79.4 - correction (current) use of insulin Category: Medical Qualifiers: Diabetes mellitus type: type 2 Qualified Code(s): E11.65 - Type 2 diabetes mellitus with hyperglycemia; Z79.4 - regional intermodal truck driver (current) use of insulin (2) Benign essential hypertension: Code(s): I10 - Essential (primary) hypertension Category: Medical Plan DM-would like to see her A1C less than 7.5%. She is hesitant to use meal time insulin and is not using CGM. No lows. Increase tresiba to 38 units. Continue ozempic 1mg, may increase in future if still uncontrolled Continue statin therapy Treat any hypoglycemia by rules of 15s Continue at least annual eye exams Continue home BG log Return in 3 months or sooner as needed Orders: Orders AMB Hemoglobin A1c Today E11.65 - Type 2 diabetes mellitus with hyperglycemia, Z13.9 - Encounter for screening, unspecified, Z79.4 - correction (current) use of insulin Medications: Changed From insulin degludec (Tresiba FlexTouch U-100 insulin) 34 units (0.34 mL) subcut BEDTIME 90 days 30.6 mL 1RF To insulin degludec (Tresiba FlexTouch U-100 insulin) 38 units (0.38 mL) subcut BEDTIME 35 mL 1RF 90 days Refilled atorvastatin 20 mg PO DAILY 90 tabs 1RF 90 days Coding Level of Care Code Est Pt Level 4 (85179) Diagnoses Type 2 diabetes mellitus with hyperglycemia, with long-term current use of insulin E11.65; Z79.4 Diabetes mellitus type: type 2 Benign essential hypertension I10
[2025-06-14 11:21] VITALS: BP 110/56; PULSE 77; O2SAT 97; BMI 34.1
[2025-06-14 11:33] LABS: Glucose, Whole Blood 145 mg/dL (60-115)
--- OUTSIDE RECORDS SUMMARY | 2025-06-14 13:27 | XMS_ITS | Patient Health Record ---
Author Organization [facility] Address [address] [place] [address] Care Team Providers Care Quality Assurance Supervisor Name Role Phone ANASTASIIA SCOTT Primary Care [...] Status W/U Status Risk Notes Problem Hypercalcemia (20211862) Hypercalcemia (E83.52) Active confirmed parathyroid vs. non-parathyroi [...] Insured Coverage Start Date Coverage End Date [facility] [address] [address] [place] [phone] [id number] MELONY BULLARD Self - patient is the insured Medical (General) History Medical History History ICD Code diabetes mellitus cataracts
== END 2025-06-14 11:45 | disposition home or self-care (01) ==
LOC: HO.ENCR 10:44
PROVIDERS: PCP Internal Medicine; Visit Provider Internal Medicine
DX: Z13.9 Encounter for screening, unspecified (principal); E11.65 Type 2 diabetes mellitus with hyperglycemia; Z79.4 Long term (current) use of insulin; I10 Essential (primary) hypertension

== ENCOUNTER → 2025-06-14 10:43 | Outpatient (BNVA) | payer OTHER, SELFPAY | PROVIDERS: PCP Internal Medicine; Visit Provider Internal Medicine | DX: E11.65 Type 2 diabetes mellitus with hyperglycemia (principal); I10 Essential (primary) hypertension; Z79.4 Long term (current) use of insulin; Z79.85 Long-term (current) use of injectable non-insulin antidiabetic drugs | CPT/HCPCS: 82947; 83036; 99212 ==

== ENCOUNTER 2025-07-05 07:44 | Outpatient (REF) | payer OTHER, SELFPAY ==
--- OUTSIDE RECORDS SUMMARY | 2025-07-05 07:49 | XMS_ITS | Patient Health Record ---
Author Organization [facility] Address [address] [place] [address] Care Team Providers Care Statistical Analyst Name Role Phone ANASTASIIA SCOTT Primary Care [...] Status W/U Status Risk Notes Problem Hypercalcemia (13064957) Hypercalcemia (E83.52) Active confirmed parathyroid vs. non-parathyroi [...] Insured Coverage Start Date Coverage End Date [facility] [address] [address] [place] [address] [phone] [id number] MELONY BULLARD Self - patient is the insured Medical (General) History Medical History History ICD Code diabetes mellitus cataracts
[2025-07-05 08:03] LABS: MANUAL DIFF FLAG NO
[2025-07-05 08:17] LABS: Hematocrit 41.1 % (37.0-47.0); Hemoglobin 13.0 g/dl (12.0-16.0); Imm Gran Abs Auto 0.01 X10*3/uL (0.00-0.03); Imm Gran Pct Auto 0.1 % (0.0-0.4); Lymphocytes Absolute Auto 3.0 X10*3/uL (1.2-4.9); Mean Corpuscular HGB Conc 31.6 g/dl (31.0-35.0); Mean Corpuscular Hemoglobin 28.1 pg (27.0-33.0); Mean Corpuscular Volume 88.8 fL (80.0-98.0); NRBC Abs Auto 0.000 X10*3/uL (0.0-0.012); NRBC Pct Auto 0.0 /100WBC (0.0-0.2); Platelet Count 257 X10*3/uL (160-400); Red Blood Count 4.63 X10*6/uL (4.20-5.50); White Blood Count 8.5 X10*3/uL (4.8-10.8)
[2025-07-05 08:28] LABS: Appearance Urine Cloudy; Glucose Urine UA Negative (Negative); PH 7.0 (5.0-9.0); Specific Gravity - Urine 1.015 (1.005-1.025); UMIC TRIGGER UACC YES
[2025-07-05 08:31] LABS: UACC Culture Trigger YES
[2025-07-05 09:09] LABS: Alanine Aminotransferase 9 U/L (0-31); Albumin Level 4.0 g/dL (3.5-5.0); Alkaline Phosphatase 87 U/L (39-117); Anion Gap 11 (12-20); Aspartate Amino Transferase 40 U/L (5-31); Blood Urea Nitrogen 17 mg/dL (9-16); Calcium 9.2 mg/dL (8.4-10.2); Carbon Dioxide 28 mmol/L (22-29); Chloride 107 mmol/L (96-108); Cholesterol 139 mg/dL (<200); Estimated Glomerular Filt Rate > 60; HDL Cholesterol 45 mg/dL (>40); Potassium 4.4 mmol/L (3.3-5.1); Sodium 142 mmol/L (135-145); Total Protein 7.1 g/dL (6.5-8.0); Triglycerides 91 mg/dL (<150)
[2025-07-05 09:18] LABS: Microalbum/Creatinine Ratio Ur 15.8 ug/mg cr (<30)
[2025-07-05 09:41] LABS: Folate 9.3 ng/mL (> or = 4.0)
[2025-07-05 09:59] LABS: Vitamin B12 > 2000 pg/mL (200-900)
== END 2025-07-05 07:45 | disposition home or self-care (01) ==
LOC: HO.LAB 07:44
PROVIDERS: Visit Provider Internal Medicine
DX: E11.9 Type 2 diabetes mellitus without complications (principal); E53.8 Deficiency of other specified B group vitamins; E55.9 Vitamin D deficiency, unspecified; E78.00 Pure hypercholesterolemia, unspecified; D64.9 Anemia, unspecified
CPT/HCPCS: 36415; 80053; 80061; 81001; 82043; 82306; 82570; 82607; 82746; 83036; 84443; 85025; 87086

== ENCOUNTER 2025-08-08 14:48 | Outpatient (AMB) | payer OTHER, SELFPAY ==
[2025-08-08 14:52] VITALS: BP 104/56; PULSE 86; O2SAT 97; BMI 34.3
--- NOTE | 2025-08-08 14:52 | A.OFFPC_ITS ---
Vital Signs 08/08/25 14:52 Height 4 ft 11 in Weight 170 lb BMI 34.3 BP 104/56 L Blood Pressure Location Lt brachial Position Sitting Pulse 86 Pulse Source Pulse Oximeter Pulse Oximetry (%) 97 Oxygen Delivery Method Room Air Intake Visit Reasons: DM, hyperlipidemia, HTN Shadowgraph Scale Operator Required: No Accompanied by: Self / Same As Patient Allergies empagliflozin (From Jardiance) Adverse Reaction (Intermediate, Verified 08/08/25 16:04) recurrent urinary tract infection metformin Adverse Reaction (Intermediate, Verified 08/08/25 16:04) nausea polyethylene glycol 3350 (From Miralax) Adverse Reaction (Intermediate, Verified 08/08/25 16:03) nausea/vomiting Medication List - Last Reconciled 08/08/25 by Rodrigo Damon MD atorvastatin 20 mg PO DAILY 90 days blood sugar diagnostic (FreeStyle Lite Strips) As directed once a day cyclobenzaprine 5 mg PO TID PRN 10 days diclofenac sodium 1% 2 grams topical QID PRN disposable gloves (Disposable Latex-Free Gloves) As directed doxepin 3 mg PO BEDTIME PRN enalapril maleate 10 mg PO DAILY 90 days [exercise peddler As directed] fluconazole 150 mg PO Q3D 2 doses [Full size firm mattress As directed] gabapentin 100 mg PO BID PRN glucagon 3 mg/actuation (Baqsimi) 3 mg intranasal ONCE ibuprofen 600 mg PO Q8H PRN incontinence pad, liner, disp To be changed 6 to 8 times a day insulin degludec (Tresiba FlexTouch U-100 insulin) 38 units (0.38 mL) subcut BEDTIME 90 days insulin syr/ndl U100 half geoffrey (BD Insulin Syringe Ultra-Fine (half unit)) Use 4 times daily lactulose 20 grams (30 mL) PO BID PRN lancets (FreeStyle Lancets) As directed once a day omeprazole 40 mg PO DAILY 90 days oxybutynin chloride ER 5 mg PO DAILY 90 days Ozempic (semaglutide) 1 mg (0.75 mL) subcut QWEEK NS pen needle, diabetic (BD Ultra-Fine Mini Pen Needle) Use as directed once a day with Tresiba [Semi-electric hospital bed with mattress and rails As directed] sennosides (senna) 17.2 mg (2 x 8.6 mg) PO BEDTIME PRN 30 days sertraline 25 mg PO .Q AM 30 days sodium chloride 0.65% (Saline Nasal) 2 sprays intranasal QID PRN [STAIR STEPPERS As directed] triazolam 0.125 mg PO BEDTIME PRN 30 days [wipes As directed] Tobacco use date assessed: 08/08/25 Fall risk assessment: No Falls in past year Last assessed Fall Risk: 08/08/25 Dental Screening Dental Screen Date: 08/08/25 Did you have a dental visit in the last 12 months?: Yes Did you have a dental problem in the last 6 months where you did not have access to dental care?: No Was dental information given to patient?: Patient has dentist HPI DM, hyperlipidemia, HTN HPI Details Patient comes in today for her follow up visit States that she feels okay She denies any headaches or dizziness Denies any chest pains, no SOB No nausea/vomiting, no abdominal pain No change in bowel habits noted - states that her current Rx has been helping with her constipation She had her follow up labs done last month - to discuss her results [facility] Medical History Hyperparathyroidism Constipation Obesity (BMI 30-39.9) Overactive bladder GERD without esophagitis Pure hypercholesterolemia Benign essential hypertension Diabetes mellitus Surgical History Status post parathyroidectomy (~09/02/22) Hx of section Status post excision of lipoma Family History Mother Diabetes mellitus Hypertension Father Hypertension Cancer Other Substance abuse Social History Housing: Apartment Alcohol intake: never Patient Tobacco Use Status: Never used Tobacco e-Cigarette/Vaping Use: Never Used Second Hand Smoke Exposure: No service: No Current occupational status: disabled Cognitive needs: Yes (walker) Hearing needs: No Vision needs: Yes Questionnaire PHQ-9 Over the last 2 weeks, how often have you been bothered by any of the following problems? 1. Little interest or pleasure in doing things: not at all 2. Feeling down, depressed, or hopeless: not at all 3. Trouble falling or staying asleep, or sleeping too much: several days 4. Feeling tired or having little energy: several days 5. Poor appetite or overeating: several days 6. Feeling bad about yourself - or that you are a failure or have let yourself or your family down: not at all 7. Trouble concentrating on things, such as reading the newspaper or watching television: not at all 8. Moving or speaking so slowly that other people could have noticed. Or the opposite - being so fidgety or restless that you have been moving around a lot more than usual: not at all 9. Thoughts that you would be better off or of hurting yourself in some way: not at all Total score: 3 Depression Screening Interpretation: Positive Depression Screening Follow-up: Existing condition and In treatment Depression Screening Done: Yes 75194 - PHQ-9 Billing: Yes Source: Developed by Drs. Gerber Vee, Rocio Ross, Roland Henriquez and colleagues, with an educational víctor from [employer]. Thrive Questionnaire Date Thrive assessed: 08/08/25 I am a: Patient What is your living situation today?: I have a steady place to live Within the past 12 months, did the food you bought not last and you didn't have the money to get more?: Never true Within the past 12 months, did you worry whether your food would run out before you got money to buy more?: Never true Do you have trouble paying for medicines?: No Do you have trouble getting transportation to medical appointments?: No Do you have trouble paying your heating and electricity bill?: No Do you have trouble taking care of your child, family member or friend?: No Do you have trouble with day-to-day activities such as bathing, preparing meals, shopping, managing finances, etc.?: No Are you currently unemployed and looking for a job?: No Are you interested in more education?: No Please select the resources that you would like help with: None Currently or been in a relationship where the following occur: No concerns re ported THRIVE Score: 0 AUDIT C Alcohol Use Questionnaire (AUDIT-C) 1. How often do you have a drink containing alcohol?: Never 3. How often do you have six or more drinks on one occasion?: Never Total Score: 0 Score Reviewed/Action Taken: Yes MOLLY-7 AMB Questionnaire MOLLY-7 Date MOLLY - 7 assessed: 08/08/25 Feeling nervous, anxious, or on edge: 0 = Not at all Not being able to stop or control worryin = Not at all Worrying too much about different things: 0 = Not at all Trouble relaxin = Not at all Being so restless that it is hard to sit still: 0 = Not at all Becoming easily annoyed or irritable: 0 = Not at all Feeling afraid as if something awful might happen: 0 = Not at all Total MOLLY-7 score (0-4 normal; 5-9 mild; 10-14 moderate; 15-21 severe): 0 Source: Developed by Drs. Gerber Vee, Rocio Ross, Roland Henriquez and colleagues, with an educational víctor from [employer]. Review of Systems Const Reports difficulty sleeping (Rx helping), Reports fatigue, Denies fever(s) and Denies headache(s) ENT Denies dysphagia, Denies dizziness, Denies otalgia, Denies headache(s), Denies neck pain, Denies odynophagia and Denies sore throat Card Denies chest pain, Denies palpitations and Denies dyspnea Resp Denies chest congestion, Denies cough and Denies dyspnea GI Denies abdominal pain, Reports constipation (on and off), Denies dysphagia, Denies heartburn, Denies diarrhea, Denies nausea, Denies odynophagia and Denies vomiting Denies difficulty voiding, Denies nocturia, Denies dysuria and Denies urinary urgency Musc Reports back pain (over the lower back), Reports arthralgias (involving multiple joints - include hips and knees) and Denies neck pain Skin/Breast Denies rash Neuro Denies dizziness and Denies headache(s) Psych Reports anxiety Endo Reports fatigue and Denies palpitations Physical exam (Primary Care) Vital Signs: Last Vital Signs Pulse 86 08/08/25 14:52 BP 104/56 L 08/08/25 14:52 Pulse Ox 97 08/08/25 14:52 Oxygen Delivery Method Room Air 08/08/25 14:52 BMI result Body Mass Index 34.3 Tobacco/Smoking Status: Tobacco use Status Tobacco use date assessed 08/08/25 08/08/25 14:54 Patient Tobacco Use Status Never used Tobacco 08/08/25 14:54 e-Cigarette/Vaping Use Never Used 08/08/25 14:54 PHQ-9: PHQ-9 Score PHQ-9: Total score 3 08/08/25 15:13 Depression Screening Interpretation: Positive Depression Screening Follow-up: Existing condition and In treatment Thrive Assessment: Date of Thrive Assessment Date Thrive assessed 08/08/25 08/08/25 14:54 Currently or been in a relationship where the following occur: No concerns reported Const General: no acute distress and alert HENMT Ears: TM's normal bilaterally and EAC's normal Throat: Yes posterior oropharynx normal and Yes tonsils normal (no TP congestion noted) Neck Neck: Yes supple and No lymphadenopathy Thyroid: Thyroid normal Resp Auscultation: clear to auscultation bilaterally, no rales and no wheezes Cardio Rate: regular rate Rhythm: regular rhythm Heart sounds: no murmurs GI Palpation (GI): Soft to palpation and nontender Auscultation: normal bowel sounds General: Yes no CVA tenderness Back/Spine/Pelvis Back: no CVA tenderness Thoracic/Lumbar Spine: lumbar spinal tenderness (mild) Skin Rashes: no rashes Extrem General: Yes no clubbing, cyanosis or edema Right lower extremity: hip/thigh Details: tenderness Location: of the hip and knee Details: tenderness; no swelling Left lower extremity: hip/thigh Details: tenderness Location: of the hip and knee Details: tenderness; no swelling Results Reviewed Results Reviewed: Laboratory Tests 07/05/25 07/05/25 07:55 08:01 WBC 8.5 Hgb 13.0 Hct 41.1 Plt Count 257 Sodium 142 Potassium 4.4 Creatinine 0.82 Estimated GFR > 60 Fasting Glucose 104 H Hemoglobin A1c % 8.3 H Calcium 9.2 AST 40 H ALT 9 Triglycerides 91 Cholesterol 139 LDL Cholesterol, Calc 76 HDL Cholesterol 45 Vitamin B12 > 2000 H 25-OH Vitamin D Total 59.2 TSH 1.42 Ur Specific Lohman 1.015 Urine Protein Negative Urine Glucose (UA) Negative Urine Blood Negative Urine Nitrite Negative Ur Leukocyte Esterase Moderate (2+) H Microalb/Creat Ratio 15.8 Coding Level of Care Code Est Pt Level 4 (86776) Diagnoses Type 2 diabetes mellitus without complication, with long-term current use of insulin E11.9; Z79.4 Diabetes mellitus type: type 2 Diabetes mellitus furs salesperson insulin use: with correction use Diabetes mellitus complication status: without complication Pure hypercholesterolemia E78.00 Benign essential hypertension I10 GERD without esophagitis K21.9 Hyperparathyroidism E21.3 Constipation, unspecified constipation type K59.00 Constipation type: unspecified constipation type Overactive bladder N32.81 Arthralgia, unspecified joint M25.50 Joint pain location: unspecified Insomnia, unspecified type G47.00 Insomnia type: unspecified Anxiety F41.9 Obesity (BMI 30-39.9) E66.9 Additional Codes PHQ-9 - 68737 - PHQ-9 Billing: Yes ([id number]) Assessment & Plan Assessment & Plan (1) Diabetes mellitus: Code(s): E11.9 - Type 2 diabetes mellitus without complications Category: Medical Qualifiers: Diabetes mellitus type: type 2 Diabetes mellitus furs salesperson insulin use: with furs salesperson use Diabetes mellitus complication status: without complication Qualified Code(s): E11.9 - Type 2 diabetes mellitus without complications; Z79.4 - USP (current) use of insulin Plan: Her HgbA1c went up to 8.3% on her labs done last month (in-office HgbA1c was previously at 8.0% back in May 2025) - goal is at least 7.5% or less Reinforced diabetic diet Patient was previously seeing an asian studies professor based in [place] (patient does not remember doctor's name) but is now following up with [facility] for her diabetes Continue Ozempic 1 mg SQ once a week and Tresiba 38 units Q HS She could not tolerate Jardiance (frequent urinary symptoms) Her Metformin (due to side effects/nausea) and Humalog have both been discontinued by endocrinology months ago Follow up with endocrinology as scheduled - she has an appointment coming up in 2 to [address] Lety Ro (2) Pure hypercholesterolemia: Code(s): E78.00 - Pure hypercholesterolemia, unspecified Category: Medical Plan: Results of her labs done last month reviewed and discussed with patient Reinforced low cholesterol diet Continue Atorvastatin 20 mg QD Will recheck her labs and fasting lipids in 4 months for follow up (3) Benign essential hypertension: Code(s): I10 - Essential (primary) hypertension Category: Medical Plan: Reinforced low sodium diet - goal is systolic BP of at least 140 to 150 mm or less Continue Enalapril 10 mg QD (4) GERD without esophagitis: Code(s): K21.9 - Gastro-esophageal reflux disease without esophagitis Category: Medical Plan: Dietary restrictions reinforced Continue Omeprazole 40 mg QD (5) Hyperparathyroidism: Comment: S/P parathyroidectomy Code(s): E21.3 - Hyperparathyroidism, unspecified Category: Medical Plan: RESOLVED - S/P parathyroidectomy with Dr. Ferrera in [employer] [facility] on 09/02/2022 She was reportedly advised by Dr. Ferrera that he will just need to see her for follow up on an as needed basis and for her to just continue seeing her asian studies professor and PCP regularly from now on for routine surveillance/follow up (6) Constipation: Code(s): K59.00 - Constipation, unspecified Category: Medical Qualifiers: Constipation type: unspecified constipation type Qualified Code(s): K59.00 - Constipation, unspecified Plan: Reinforced increased oral fluids and dietary fiber She was taking Miralax 17 gm QD in the past but stopped taking it a few months ago as she was throwing up every time she takes the Rx Continue Senna to 17.2 mg (2 x 8.6 mg) QD PRN - states that this has been helping her a lot (7) Overactive bladder: Code(s): N32.81 - Overactive bladder Category: Medical Plan: Continue Oxybutynin ER 5 mg QD States that she is still getting up to go to the bathroom about 4 times a night Will consider increasing Rx dosage if her symptoms persist/progress but due to her age, will continue on same dose for now as higher doses may result in side effects, including drowsiness (8) Arthralgia: Code(s): M25.50 - Pain in unspecified joint Category: Medical Qualifiers: Joint pain location: unspecified Qualified Code(s): M25.50 - Pain in unspecified joint Plan: Continue topical Diclofenac 1% gel to apply to affected/painful areas QID PRN and Gabapentin 100 mg BID (9) Insomnia: Code(s): G47.00 - Insomnia, unspecified Category: Medical Qualifiers: Insomnia type: unspecified Qualified Code(s): G47.00 - Insomnia, unspecified Plan: Sleep hygiene reinforced Continue Triazolam 0.125 mg Q HS PRN (10) Anxiety: Code(s): F41.9 - Anxiety disorder, unspecified Category: Medical Plan: Continue Sertraline 25 mg Q AM (11) Obesity (BMI 30-39.9): Code(s): E66.9 - Obesity, unspecified Category: Medical Plan: Reinforced diet; exercise and weight loss are unrealistic due to patient's age and physical limitations Plan Follow up in 4 months Orders: Orders Lipid Panel 4 Months E78.00 - Pure hypercholesterolemia, unspecified Microalbumin, Random (w Creat) 4 Months E11.9 - Type 2 diabetes mellitus without complications UA CC w/rflx Micro + Cult 4 Months R30.0 - Dysuria TSH reflex Free T4 4 Months E78.00 - Pure hypercholesterolemia, unspecified Hemoglobin A1c 4 Months E11.9 - Type 2 diabetes mellitus without complications Complete Blood Count Auto Diff 4 Months D64.9 - Anemia, unspecified Comprehensive Anderson. Panel Fast 4 Months E78.00 - Pure hypercholesterolemia, unspecified
--- OUTSIDE RECORDS SUMMARY | 2025-08-09 12:39 | XMS_ITS | Patient Health Record ---
Author Organization [facility] Address [address] [place] [address] Care Team Providers Care Applications Tester Name Role Phone ANASTASIIA SCOTT Primary Care [...] Status W/U Status Risk Notes Problem Hypercalcemia ([id number]) Hypercalcemia (E83.52) Active confirmed parathyroid vs. non-parathyroi [...] Insured Coverage Start Date Coverage End Date [facility] [address] [address] [place] [address] [id number] MELONY BULLARD Self - patient is the insured Medical (General) History Medical History History ICD Code diabetes mellitus cataracts
== END 2025-08-08 16:00 | disposition home or self-care (01) ==
LOC: HO.HMCH 14:49
PROVIDERS: PCP Internal Medicine; Visit Provider Internal Medicine
DX: E11.9 Type 2 diabetes mellitus without complications (principal); Z79.4 Long term (current) use of insulin; E78.00 Pure hypercholesterolemia, unspecified; I10 Essential (primary) hypertension; K21.9 Gastro-esophageal reflux disease without esophagitis; E21.3 Hyperparathyroidism, unspecified; K59.00 Constipation, unspecified; N32.81 Overactive bladder; M25.50 Pain in unspecified joint; G47.00 Insomnia, unspecified; F41.9 Anxiety disorder, unspecified; E66.9 Obesity, unspecified; Z68.34 Body mass index [BMI] 34.0-34.9, adult

== ENCOUNTER → 2025-08-08 14:48 | Outpatient (BNVA) | payer OTHER, SELFPAY | PROVIDERS: PCP Internal Medicine; Visit Provider Internal Medicine | DX: E11.9 Type 2 diabetes mellitus without complications (principal); E78.00 Pure hypercholesterolemia, unspecified; I10 Essential (primary) hypertension; K21.9 Gastro-esophageal reflux disease without esophagitis; E21.3 Hyperparathyroidism, unspecified; K59.00 Constipation, unspecified; N32.81 Overactive bladder; M25.50 Pain in unspecified joint; G47.00 Insomnia, unspecified; Z79.4 Long term (current) use of insulin; E66.9 Obesity, unspecified; Z68.34 Body mass index [BMI] 34.0-34.9, adult | CPT/HCPCS: 96127; 99212 ==

== ENCOUNTER 2025-09-06 11:13 | Outpatient (AMB) | payer OTHER, SELFPAY ==
--- NOTE | 2025-09-06 11:18 | A.OFFVIS_ITS ---
Vital Signs 09/06/25 11:19 Height 4 ft 11 in Weight 170 lb 15.369 oz BMI 34.5 BP 100/60 Blood Pressure Location Rt brachial Position Sitting Pulse 88 Pulse Source Pulse Oximeter Pulse Oximetry (%) 99 Oxygen Delivery Method Room Air Intake Visit Reasons: DM Intake Note: Patient presents today for a follow-up on Type 2 Diabetes Mellitus: Last Diabetic eye exam was on: 10/18/2024, [facility] Last Podiatry exam was on: Patient does not see a Protection Analyst Most recent HbA1c: 8.3%, 07/05/2025 Random Glucose- 145 mg/dL, Today Spring Machine Operator Required: No Accompanied by: Daughter Allergies empagliflozin (From Jardiance) Adverse Reaction (Intermediate, Verified 09/06/25 11:22) recurrent urinary tract infection metformin Adverse Reaction (Intermediate, Verified 09/06/25 11:22) nausea polyethylene glycol 3350 (From Miralax) Adverse Reaction (Intermediate, Verified 09/06/25 11:22) nausea/vomiting HPI Comments Details: This is an 84 year old female with a past medical history of IDDM presenting for follow up Initially diagnosed with T2DM ~20 yrs. Saw faith in [facility] long time ago. Current regimen Ozempic 1 mg Qwkly. (increased following last visit) Tresiba 38 from 34 units Novolog- not taking Past medications-jardiance 25mg daily due to recurrent urinary symptoms. Trulicity-tolerated but failed effectiveness. metformin 500 mg BID -she stopped this due to GI side effects A1c 8.3 from rom 8.0% from 8.2%. Unfortunately this was done in May one month after the one prior Range 90-120 fasting traditional glucometer. No hypoglycemia Patient was prescribed Terri CGM. Did not like it. Treats any low BG with OJ-no interval. No recent hypoglycemia. Checks sugar after to ensure it is rising. Family history of T2DM in mother and grandmother. Follows with ophtho-eye exam was early summer. Has retinopathy and getting injections . Mild bilateral foot numbness, no pain. Not seeing podiatry Denies nephropathy, on CANDICE/ARB. Has HLD, on statin. Denies CAD. Has had diabetic education ROS CONSTITUTIONAL: Denies weight loss, fever and chills. HEENT: Denies changes in vision and hearing. RESPIRATORY: Denies SOB and cough. CV: Denies palpitations and CP GI: Denies abdominal pain, nausea, vomiting and diarrhea. : Denies dysuria and urinary frequency. MSK: Denies new myalgia and joint pain. SKIN: Denies rash and pruritus. NEUROLOGICAL: Denies headache PSYCHIATRIC: Denies recent changes in mood. PHYSICAL EXAM: GENERAL: Alert and oriented x 3. NAD EYES: EOMI. Anicteric. HENT: Moist mucous membranes. No scleral icterus. No cervical lymphadenopathy. LUNGS: Clear to auscultation bilaterally. CARDIOVASCULAR: Regular rate and rhythm. No murmur. No JVD. ABDOMEN: Soft, non-tender +bs EXTREMITIES: No edema. Non-tender. SKIN: No rashes or lesions. Warm. NEUROLOGIC: No focal neurological deficits. CN II-XII grossly intact. Normal monofilament. Intact vibratory sense PSYCHIATRIC: Cooperative. Appropriate mood and affect [facility] Medical History Hyperparathyroidism Constipation Obesity (BMI 30-39.9) Overactive bladder GERD without esophagitis Pure hypercholesterolemia Benign essential hypertension Diabetes mellitus Surgical History Status post parathyroidectomy (~09/02/22) Hx of section Status post excision of lipoma Family History Mother Diabetes mellitus Hypertension Father Hypertension Cancer Other Substance abuse Social History Housing: Apartment Alcohol intake: never Patient Tobacco Use Status: Never used Tobacco e-Cigarette/Vaping Use: Never Used Second Hand Smoke Exposure: No service: No Current occupational status: disabled Cognitive needs: Yes (walker) Hearing needs: No Vision needs: Yes Physical Exam Vital Signs: Last Vital Signs Pulse 88 09/06/25 11:19 BP 100/60 09/06/25 11:19 Pulse Ox 99 09/06/25 11:19 Oxygen Delivery Method Room Air 09/06/25 11:19 BMI result Body Mass Index 34.5 Results Reviewed Results Reviewed: Laboratory Last Values Glucose (Clinic) 145 mg/dL (60-115) H 09/06/25 11:24 Assessment & Plan Assessment & Plan (1) Diabetes mellitus with hyperglycemia, with long-term current use of insulin: Code(s): E11.65 - Type 2 diabetes mellitus with hyperglycemia; Z79.4 - long term care social worker (current) use of insulin Category: Medical Qualifiers: Diabetes mellitus type: type 2 Qualified Code(s): E11.65 - Type 2 diabetes mellitus with hyperglycemia; Z79.4 - long term care social worker (current) use of insulin Plan Type 2 diabetes Fair control. Only checking fasting so without updated A1C difficult to adjust medications She will return in 4-6 weeks when she is due for her next A1C (sooner as needed) Continue current dosing Treat hypoglycemia by rules of 15s Medications: Refilled 2 sennosides (senna) 17.2 mg (2 x 8.6 mg) PO BEDTIME PRN 60 tabs 3RF constipation 30 days lancets (FreeStyle Lancets) As directed once a day 100 ea 12RF E11.9 - Type 2 diabetes mellitus without complications, Z79.4 - long term care social worker (current) use of insulin Coding Level of Care Code Est Pt Level 3 (73613) Diagnoses Type 2 diabetes mellitus with hyperglycemia, with long-term current use of insulin E11.65; Z79.4 Diabetes mellitus type: type 2
[2025-09-06 11:19] VITALS: BP 100/60; PULSE 88; O2SAT 99; BMI 34.5
[2025-09-06 11:28] LABS: Glucose, Whole Blood 145 mg/dL (60-115)
--- OUTSIDE RECORDS SUMMARY | 2025-09-06 14:56 | XMS_ITS | Patient Health Record ---
Author Organization [facility] Address [address] [place] [address] Care Team Providers Care Crane Ladle Person Name Role Phone ANASTASIIA SCOTT Primary Care Provider Unavailabl e Reason For Referral No Information Medications Medication SIG (Take, Route, Frequency, Duration) Notes Start Date End Date Status NovoLOG 100 UNIT/ML Solution 12 unit Subcutaneous TID Active Atorvastatin Calcium 20 MG Tablet 1 tablet Orally Once a day; Duration: 30 day(s) Active Enalapril Maleate 10 MG Tablet Orally Once a day Active oxyBUTYnin Chloride 5 MG Tablet 1 tablet Orally Once a day Active Tresiba FlexTouch 100 UNIT/ML Solution Pen-injector 30 units Subcutaneous Active metFORMIN HCl 1000 MG Tablet 1 tablet with a meal Orally BID Active glipiZIDE *please review f or potential update for e-prescription and drug interaction check* Active Gabapentin *please review f or potential update for e-prescription and drug interaction check* Unknown Omeprazole 40 MG Capsule Delayed Release 1 capsule 30 minutes before morning meal Orally Once a day Active Cinacalcet HCl 30 MG Tablet 1 tablet with food or after a meal Orally Once a day; Duration: 90 days 12/13/2019 Active Vitamin B-12 *please review f or potential update for e-prescription and drug interaction check* Active Flonase *please review f or potential update for e-prescription and drug interaction check* Active Social History Social History Additional Details Category Social Info Options Details Migrated Social History Migrated Social History Tobacco Use:(Tobacco Use/Smoking):Are you a:: never smoker ; Problems Problem Type SNOMED Code ICD Code Onset Dates Problem Status W/U Status Risk Notes Problem Hypercalcemia ([id number]) Hypercalcemia (E83.52) Active confirmed parathyroid vs. non-parathyroi [...] Insured Coverage Start Date Coverage End Date [facility] [address] [address] [place] [phone] [id number] MELONY BULLARD Self - patient is the insured Medical (General) History Medical History History ICD Code diabetes mellitus cataracts
== END 2025-09-06 11:42 | disposition home or self-care (01) ==
LOC: HO.ENCR 11:14
PROVIDERS: PCP Internal Medicine; Visit Provider Internal Medicine
DX: E11.65 Type 2 diabetes mellitus with hyperglycemia (principal); Z79.4 Long term (current) use of insulin

== ENCOUNTER → 2025-09-06 11:13 | Outpatient (BNVA) | payer OTHER, SELFPAY | PROVIDERS: PCP Internal Medicine; Visit Provider Internal Medicine | DX: E11.65 Type 2 diabetes mellitus with hyperglycemia (principal); Z79.4 Long term (current) use of insulin; Z79.899 Other long term (current) drug therapy | CPT/HCPCS: 82947; 99212 ==